=== PATIENT | female | born 1970 | race Two or more races ===

== ENCOUNTER 2020-02-11 13:47 | Outpatient (REF) | payer OTHER, SELFPAY ==
[2020-02-11 16:56] LABS: MANUAL DIFF FLAG NO
[2020-02-11 17:02] LABS: Basophils Absolute Auto 0.1 X10*3/uL (0.0-0.2); Basophils Percent Auto 1.3 % (0-2); Eosinophils Absolute Auto 0.1 X10*3/uL (0.0-0.4); Eosinophils Percent Auto 1.8 % (0-4); Hematocrit 39.3 % (37-47); Hemoglobin 12.3 g/dl (12.0-16.0); Imm Gran Abs Auto 0.01 X10*3/uL (0.00-0.03); Imm Gran Pct Auto 0.1 % (0.0-0.4); Lymphocytes Absolute Auto 2.2 X10*3/uL (1.2-4.9); Lymphocytes Percent Auto 32.1 % (20-40); Mean Corpuscular HGB Conc 31.3 g/dl (31.0-35.0); Mean Corpuscular Hemoglobin 29.4 pg (27.0-33.0); Mean Corpuscular Volume 93.8 fL (80-98); Mean Platelet Volume 10.1 fL (9.4-12.3); Monocytes Absolute Auto 0.5 X10*3/uL (0.1-1.2); Neutrophils Absolute Auto 3.8 X10*3/uL (2.0-8.3); Neutrophils Percent Auto 56.7 % (45-73); Platelet Count 350 X10*3/uL (160-400); Red Blood Count 4.19 X10*6/uL (4.20-5.50); Red Cell Distribution Width 14.1 % (11.0-16.0); White Blood Count 6.8 X10*3/uL (4.8-10.8)
[2020-02-11 17:10] LABS: Anion Gap 10 (12-20); Blood Urea Nitrogen 12 mg/dL (9-16); Calcium 8.6 mg/dL (8.4-10.2); Carbon Dioxide 30 mmol/L (22-29); Chloride 106 mmol/L (96-108); Estimated Glomerular Filt Rate > 60; Glucose Random 76 mg/dL (60-115); Potassium 4.2 mmol/l (3.3-5.1); Sodium 142 mmol/L (135-145)
[2020-02-11 17:32] LABS: TSH reflex Free T4 0.93 mIU/mL (0.32-4.0)
[2020-02-12 12:01] LABS: LDL Cholesterol Direct 66 mg/dL (<100)
== END 2020-02-11 13:48 | disposition home or self-care (01) ==
LOC: HO.HMGCLDS 13:47
PROVIDERS: PCP Internal Medicine; Visit Provider Internal Medicine
DX: I10 Essential (primary) hypertension (principal); Z72.0 Tobacco use; Z76.89 Persons encountering health services in other specified circumstances
CPT/HCPCS: 36415; 80048; 83721; 84443; 85025

== ENCOUNTER 2020-09-17 12:19 | Outpatient (REF) | payer OTHER, SELFPAY ==
--- NOTE | ~2020-09-17 | XR_ITS ---
EXAMINATION: XR SACROILIAC JOINTS CLINICAL INFORMATION: Other specified disorder of bone COMPARISON: None TECHNIQUE: 3 views of the sacroiliac joints FINDINGS: Sacroiliac joints are patent. No erosions or sclerosis seen. No sacral or pelvic fracture seen. XR/XR sacroiliac joint 1-2V IMPRESSION: Normal sacroiliac joints.
--- NOTE | ~2020-09-17 | XR_ITS ---
EXAMINATION: XR CLAVICLE, LEFT CLINICAL INFORMATION: Other specified disorder of bone, shoulder COMPARISON: None TECHNIQUE: Two views of the left clavicle. FINDINGS: The clavicle is intact. The bones and soft tissues are normal. No fracture. Acromioclavicular joint alignment is anatomic. XR/XR clavicle LT IMPRESSION: Normal left clavicle.
[2020-09-17 13:53] LABS: MANUAL DIFF FLAG NO
[2020-09-17 14:07] LABS: Basophils Absolute Auto 0.1 X10*3/uL (0.0-0.2); Basophils Percent Auto 1.1 % (0-2); Eosinophils Absolute Auto 0.3 X10*3/uL (0.0-0.4); Eosinophils Percent Auto 4.5 % (0-4); Hematocrit 36.9 % (37-47); Hemoglobin 11.8 g/dl (12.0-16.0); Imm Gran Abs Auto 0.01 X10*3/uL (0.00-0.03); Imm Gran Pct Auto 0.2 % (0.0-0.4); Lymphocytes Percent Auto 31.3 % (20-40); Mean Corpuscular Hemoglobin 30.3 pg (27.0-33.0); Mean Corpuscular Volume 94.6 fL (80-98); Mean Platelet Volume 9.9 fL (9.4-12.3); Monocytes Absolute Auto 0.4 X10*3/uL (0.1-1.2); Monocytes Percent Auto 6.3 % (2-11); Neutrophils Absolute Auto 3.7 X10*3/uL (2.0-8.3); Neutrophils Percent Auto 56.6 % (45-73); Platelet Count 337 X10*3/uL (160-400); Red Cell Distribution Width 13.4 % (11.0-16.0); White Blood Count 6.5 X10*3/uL (4.8-10.8)
[2020-09-17 14:15] LABS: Alanine Aminotransferase 8 U/L (0-31); Albumin Level 3.6 g/dL (3.5-5.0); Alkaline Phosphatase 70 U/L (39-117); Anion Gap 12 (12-20); Aspartate Amino Transferase 17 U/L (5-31); Bilirubin Total 0.2 mg/dL (0.0-1.0); Blood Urea Nitrogen 13 mg/dL (9-16); Calcium 8.8 mg/dL (8.4-10.2); Carbon Dioxide 28 mmol/L (22-29); Chloride 107 mmol/L (96-108); Estimated Glomerular Filt Rate > 60; Glucose Random 77 mg/dL (60-115); Potassium 4.4 mmol/L (3.3-5.1); Sodium 143 mmol/L (135-145); Total Protein 6.3 g/dL (6.5-8.0)
[2020-09-17 14:38] LABS: TSH reflex Free T4 1.69 uIU/mL (0.32-4.0)
[2020-09-18 06:17] LABS: LDL Cholesterol Direct 76 mg/dL (<100)
== END 2020-09-17 12:20 | disposition home or self-care (01) ==
LOC: HO.HMGCX 12:19
PROVIDERS: PCP Internal Medicine; Visit Provider Internal Medicine
DX: M89.8X1 Other specified disorders of bone, shoulder (principal); M46.1 Sacroiliitis, not elsewhere classified; F41.1 Generalized anxiety disorder; I10 Essential (primary) hypertension; Z72.0 Tobacco use
CPT/HCPCS: 36415; 72200; 73000; 80053; 83721; 84443; 85025

== ENCOUNTER 2021-02-02 11:14 | Outpatient (REF) | payer OTHER, SELFPAY ==
[2021-02-02 13:50] LABS: MANUAL DIFF FLAG NO
[2021-02-02 14:05] LABS: Basophils Absolute Auto 0.1 X10*3/uL (0.0-0.2); Eosinophils Absolute Auto 0.3 X10*3/uL (0.0-0.4); Eosinophils Percent Auto 4.1 % (0-4); Hematocrit 37.9 % (37.0-47.0); Hemoglobin 12.2 g/dl (12.0-16.0); Imm Gran Abs Auto 0.01 X10*3/uL (0.00-0.03); Imm Gran Pct Auto 0.1 % (0.0-0.4); Lymphocytes Absolute Auto 1.9 X10*3/uL (1.2-4.9); Lymphocytes Percent Auto 26.1 % (20-40); Mean Corpuscular HGB Conc 32.2 g/dl (31.0-35.0); Mean Corpuscular Volume 93.1 fL (80.0-98.0); Mean Platelet Volume 9.7 fL (9.4-12.3); Monocytes Absolute Auto 0.4 X10*3/uL (0.1-1.2); Monocytes Percent Auto 5.5 % (2-11); Neutrophils Absolute Auto 4.6 x10*3/uL (2.0-8.3); Neutrophils Percent Auto 63.2 % (45-73); Platelet Count 340 X10*3/uL (160-400); Red Blood Count 4.07 X10*6/uL (4.20-5.50); Red Cell Distribution Width 14.6 % (11.0-16.0); White Blood Count 7.3 X10*3/uL (4.8-10.8)
[2021-02-02 14:32] LABS: Alanine Aminotransferase 11 U/L (0-31); Albumin Level 3.8 g/dL (3.5-5.0); Alkaline Phosphatase 67 U/L (39-117); Anion Gap 12 (12-20); Aspartate Amino Transferase 16 U/L (5-31); Bilirubin Total 0.3 mg/dL (0.0-1.0); Blood Urea Nitrogen 10 mg/dL (9-16); Calcium 8.8 mg/dL (8.4-10.2); Carbon Dioxide 28 mmol/L (22-29); Chloride 105 mmol/L (96-108); Estimated Glomerular Filt Rate > 60; Glucose Random 54 mg/dL (60-115); Sodium 141 mmol/L (135-145); Total Protein 6.7 g/dL (6.5-8.0)
== END 2021-02-02 11:15 | disposition home or self-care (01) ==
LOC: HO.HMGCLDS 11:14
PROVIDERS: PCP Internal Medicine; Visit Provider Internal Medicine
DX: M19.039 Primary osteoarthritis, unspecified wrist (principal)
CPT/HCPCS: 36415; 80053; 85025

== ENCOUNTER → 2021-04-12 13:00 | Outpatient (REF) | payer OTHER, SELFPAY ==
--- NOTE | 2021-04-12 13:04 | CA_ITS ---
Transthoracic Echocardiogram Patient (Last, First, Middle): Torri Gan, Gender: Female Date of : 1970 Age: 50 Procedure Date: 04/12/2021 Procedure Type: Transthoracic Echocardiogram Location: OP Height: 165.1 cm Weight: 68.04 kg BSA: 1.75 m2 Heart Rate: bpm BP: 122 / 60 mmHg Shirt Marker: Referring MD: Jesse Rudd MD Controls Design Engineer: Jay Cui MD Symptoms: Z01.818 - Encounter for other preprocedural examination Study Quality: Good ECG Rhythm: Sinus Conclusions: - Essentially normal study Findings Left Ventricle Normal left ventricular size, thickness, and systolic function. The visually estimated ejection fraction is between 60-65%. Spectral Doppler is indicative of a normal filling pattern. Right Ventricle Normal right ventricular cavity size and systolic function. Atria Both atria are normal in size. There is lipomatous hypertrophy of the interatrial septum. There is no evidence of interatrial shunt. Aortic Valve Normal aortic valve structure and function. There is no aortic valve stenosis. There is no aortic valve regurgitation. Mitral Valve Normal mitral valve structure and function. There is trace mitral valve regurgitation. There is no mitral valve stenosis. Pulmonic Valve The pulmonic valve is likely normal. Tricuspid Valve Normal tricuspid valve structure. The right ventricular systolic pressure is normal. There is no evidence of pulmonary hypertension. Great Vessels All visible segments of the aorta are normal in size. The pulmonary artery was not well visualized. Venous The inferior vena cava is normal in size and collapses greater than 50% with inspiration. Pericardium/Pleural There is no evidence of pericardial effusion. Prior Study Comparison No prior study available for comparison. Measurements 2D Linear Measurements IVSd: 0.98 0.6-0.9/0.6-1.0 cm LVIDd: 5.04 3.9-5.3/4.2-5.9 cm LVIDd Index: 2.88 2.4-3.2/2.2-3.1 cm/m2 LVIDs: 3.20 2.0-3.6 cm LVPWd: 0.91 0.7-1.1 cm Ao Root: 3.20 2.1-3.5 cm LA Diam: 3.10 2.7-3.8/3.0-4.0 cm LAIDs Index: 1.77 1.5-2.3 cm/m2 LV Mass: 214.18 67-162/88-224 g LV Mass Index: 122.39 43-95/49-115 g/m2 LVOT Diam: 2.00 3.0+(-)1.3 cm Mitral Valve MV Pk E: 0.82 MV PK A: 0.69 MV Decel Time: 134.00 E/A: 1.20 E'Lateral: 10.90 E'Medial: 8.27 E/E' Med: 10.00 E/E' Lat: 7.60 PHT: 39.00 MVA PHT: 5.64 Decel [place]: 6.15 Aortic Valve AoV Pk Constantino: 1.41 AoV Mn Constantino: 0.96 AoV VTI: 0.27 AoV Pk Grad: 8.00 Aov Mn Grad: 4.00 ABDI Cont.VTI: 2.79 LVOT LVOT Pk Constantino: 1.21 LVOT Mn Constantino: 0.79 LVOT VTI: 0.24 LVOT Pk Grad: 6.00 LVOT Mn Grad: 3.00 LVOT Diam: 2.00 LVOT Area: 3.14 Diastolic Function MV Pk E: 0.82 MV Pk A: 0.69 E/A: 1.20 E'Medial: 8.27 E/E' Med: 10.00 E' Laterial: 10.90 E/E' Lat: 7.60 Tricuspid Valve TR Pk Constantino: 2.23 TR Pk Grad: 20.00 RA Press: 3.00 RVSP: 23.00 Great Vessels Aorta Ao Root-2D: 3.20 2.0-3.7 cm Pulmonary Valve PV Pk Constantino: 1.03 Peak PV Grad: 4.00 Updated in Other Vendor System with Status of Final Jay Cui MD electronically signed on 04/12/2021 4:11:41 PM with status of Final
== END ==
LOC: HO.CARD 13:00
PROVIDERS: PCP Internal Medicine; Visit Provider Internal Medicine
DX: Z01.818 Encounter for other preprocedural examination (principal); I51.7 Cardiomegaly; Z72.0 Tobacco use
CPT/HCPCS: 93306

== ENCOUNTER 2021-08-05 12:30 | Outpatient (REF) | payer OTHER, SELFPAY ==
[2021-08-05 14:33] LABS: Alanine Aminotransferase 9 U/L (0-31); Alkaline Phosphatase 79 U/L (39-117); Anion Gap 7 (12-20); Aspartate Amino Transferase 13 U/L (5-31); Bilirubin Total 0.2 mg/dL (0.0-1.0); Blood Urea Nitrogen 10 mg/dL (9-16); Calcium 9.6 mg/dL (8.4-10.2); Carbon Dioxide 31 mmol/L (22-29); Chloride 104 mmol/L (96-108); Estimated Glomerular Filt Rate > 60; Glucose Random 78 mg/dL (60-115); Potassium 4.4 mmol/L (3.3-5.1); Sodium 138 mmol/L (135-145); Total Protein 7.3 g/dL (6.5-8.0)
== END 2021-08-05 12:31 | disposition home or self-care (01) ==
LOC: HO.HMGCLDS 12:30
PROVIDERS: Visit Provider Internal Medicine
DX: F41.1 Generalized anxiety disorder (principal); I10 Essential (primary) hypertension
CPT/HCPCS: 36415; 80053

== ENCOUNTER 2021-12-05 14:01 | Outpatient (REF) | payer OTHER, SELFPAY ==
--- NOTE | ~2021-12-05 | XR_ITS ---
EXAMINATION: XR SHOULDER, RIGHT CLINICAL INFORMATION: Sprain of the right shoulder joint COMPARISON: None TECHNIQUE: Three views of the right shoulder. FINDINGS: No acute fracture or dislocation. Glenohumeral joint space is maintained. Subchondral sclerosis and subchondral cystic change at the anterior glenoid and minimal inferior humeral head marginal osteophyte formation compatible with mild osteoarthritis. Acromiohumeral interval is maintained. No periarticular soft tissue calcification. AC joint is congruent and intact. Visualized right lung is grossly clear. XR/XR shoulder RT min 2V IMPRESSION: 1. No acute osseous injury. 2. Mild glenohumeral joint osteoarthritis.
== END 2021-12-05 14:02 | disposition home or self-care (01) ==
LOC: HO.HMGCX 14:01
PROVIDERS: PCP Internal Medicine; Visit Provider Internal Medicine
DX: S43.401A Unspecified sprain of right shoulder joint, initial encounter (principal)
CPT/HCPCS: 73030

== ENCOUNTER 2022-05-17 11:47 | Outpatient (REF) | payer OTHER, SELFPAY ==
[2022-05-17 13:59] LABS: MANUAL DIFF FLAG NO
[2022-05-17 14:17] LABS: Basophils Absolute Auto 0.1 X10*3/uL (0.0-0.2); Eosinophils Absolute Auto 0.1 X10*3/uL (0.0-0.4); Eosinophils Percent Auto 2.3 % (0-4); Hematocrit 41.7 % (37.0-47.0); Hemoglobin 12.9 g/dl (12.0-16.0); Imm Gran Abs Auto 0.02 X10*3/uL (0.00-0.03); Imm Gran Pct Auto 0.3 % (0.0-0.4); Lymphocytes Absolute Auto 1.6 X10*3/uL (1.2-4.9); Lymphocytes Percent Auto 25.7 % (20-40); Mean Corpuscular HGB Conc 30.9 g/dl (31.0-35.0); Mean Corpuscular Hemoglobin 28.6 pg (27.0-33.0); Mean Corpuscular Volume 92.5 fL (80.0-98.0); Mean Platelet Volume 9.6 fL (9.4-12.3); Monocytes Absolute Auto 0.3 X10*3/uL (0.1-1.2); Monocytes Percent Auto 5.6 % (2-11); Neutrophils Absolute Auto 3.9 x10*3/uL (2.0-8.3); Neutrophils Percent Auto 65.1 % (45-73); Platelet Count 379 X10*3/uL (160-400); Red Blood Count 4.51 X10*6/uL (4.20-5.50); Red Cell Distribution Width 14.9 % (11.0-16.0); White Blood Count 6.1 X10*3/uL (4.8-10.8)
[2022-05-17 14:36] LABS: Estimated Average Glucose 117 mg/dL; Hemoglobin A1c % 5.7 %
[2022-05-17 14:46] LABS: Alanine Aminotransferase 7 U/L (0-31); Albumin Level 3.8 g/dL (3.5-5.0); Alkaline Phosphatase 77 U/L (39-117); Anion Gap 9 (12-20); Aspartate Amino Transferase 13 U/L (5-31); Bilirubin Total 0.2 mg/dL (0.0-1.0); Blood Urea Nitrogen 15 mg/dL (9-16); Calcium 9.2 mg/dL (8.4-10.2); Carbon Dioxide 29 mmol/L (22-29); Chloride 108 mmol/L (96-108); Estimated Glomerular Filt Rate > 60; Glucose Random 92 mg/dL (60-115); Potassium 4.2 mmol/L (3.3-5.1); Sodium 142 mmol/L (135-145); Total Protein 6.7 g/dL (6.5-8.0)
[2022-05-17 15:01] LABS: TSH reflex Free T4 0.14 uIU/mL (0.32-4.0)
[2022-05-17 15:44] LABS: Free T4 (Free Thyroxine) 0.82 ng/dL (0.71-1.85)
[2022-05-18 10:23] LABS: LDL Cholesterol Direct 82 mg/dL (<100)
== END 2022-05-17 11:48 | disposition home or self-care (01) ==
LOC: HO.HMGCLDS 11:47
PROVIDERS: PCP Internal Medicine; Visit Provider Internal Medicine
DX: R63.4 Abnormal weight loss (principal); F33.9 Major depressive disorder, recurrent, unspecified; F41.1 Generalized anxiety disorder; G47.9 Sleep disorder, unspecified; I10 Essential (primary) hypertension; R42 Dizziness and giddiness; Z72.0 Tobacco use; E16.2 Hypoglycemia, unspecified
CPT/HCPCS: 36415; 80053; 83036; 83721; 84439; 84443; 85025

== ENCOUNTER 2022-05-31 09:40 | Outpatient (REF) | payer OTHER, SELFPAY ==
[2022-05-31 12:39] LABS: TSH reflex Free T4 0.65 uIU/mL (0.32-4.0)
== END 2022-05-31 09:41 | disposition home or self-care (01) ==
LOC: HO.HMGCLDS 09:40
PROVIDERS: PCP Internal Medicine; Visit Provider Internal Medicine
DX: R94.6 Abnormal results of thyroid function studies (principal)
CPT/HCPCS: 36415; 84443

== ENCOUNTER 2022-09-25 15:39 | Outpatient (AMB) | payer MEDICAID, SELFPAY ==
[2022-09-25 15:43] VITALS: BP 108/88; PULSE 84; TEMP 37.1; O2SAT 100
--- NOTE | 2022-09-25 15:43 | MHC.OFFWIV ---
Intake Vital Signs 09/25/22 15:43 Height 5 ft 5 in BP 108/88 Blood Pressure Location Rt brachial Position Sitting Pulse 84 Pulse Source Pulse Oximeter Temp 98.8 F Temp Source Oral Pulse Oximetry (%) 100 Oxygen Delivery Method Room Air Intake Visit Reasons: EST/cannot move left hand Intake Note: Pt is here today for swelling in Lt hand, pt states that it hurts and unable to move it. FYI had arthritis surgery 2 years ago Patient Tobacco Use Status: Current everyday Tobacco user Allergies shellfish derived Allergy (Severe, Verified 09/25/22 15:43) Unknown Medication List - Last Reconciled 09/26/22 by Gavin Almendarez MD escitalopram oxalate (Lexapro) 20 mg PO DAILY 90 days meloxicam 15 mg PO DAILY 30 days nifedipine ER 60 mg PO DAILY 90 days plecanatide (Trulance) 3 mg PO DAILY quetiapine 50 mg PO BEDTIME 90 days valsartan 160 mg PO DAILY 90 days Do you need a note to return to daycare/school/sports/work: No HPI EST/cannot move left hand HPI Details 51-year-old female presents to the office for a sick visit. Patient is complaining of pain and swelling in the left hand for the past few days. 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 Patient is unable to move the hand secondary to pain. She went to the orthopedic surgeon's office but could not afford the walk-in visit. Patient does not recall any fall or injury recently. [facility] Medical History Anxiety, generalized Arthrosis Asthma Hypertension, essential Stroke Tobacco abuse Surgical History H/O: hysterectomy Family History Mother Heart disease Diabetes Father Heart disease Substance abuse Daughter Substance abuse Social History Housing: House Alcohol intake: never Patient Tobacco Use Status: Current everyday Tobacco user Tobacco use type: Cigarette Cigarette Packs Per Day: 1 Cigarettes Per Day: 10 e-Cigarette/Vaping Use: Never Used Second Hand Smoke Exposure: No Current occupational status: unemployed Cognitive needs: No Hearing needs: No Vision needs: Yes Physical Exam Vital Signs: Last Vital Signs Temp 98.8 F 09/25/22 15:43 Pulse 84 09/25/22 15:43 BP 108/88 09/25/22 15:43 Pulse Ox 100 09/25/22 15:43 Oxygen Delivery Method Room Air 09/25/22 15:43 Extrem Other: Left wrist/forearm: Swelling over the dorsum of the wrist. Pain on flexion. Assessment & Plan Assessment & Plan (1) Wrist pain, left: Code(s): M25.532 - Pain in left wrist Plan: X-ray shows a missing carpal bone. An Matteo wrap was provided. Patient is already taking meloxicam. I encouraged her to see the orthopedic MD. Addendum: I was seen on the patient's, when the nurse reported that patient was unhappy with the care received and had stormed out of the office. Orders: Orders XR wrist LT min 3V 09/25/22 M25.532 - Pain in left wrist Coding Level of Care Code Est Pt Level 4 (68701) Diagnoses Wrist pain, left M25.532
== END 2022-09-25 16:41 | disposition home or self-care (01) ==
PROVIDERS: PCP Internal Medicine; Visit Provider Internal Medicine
DX: M25.532 Pain in left wrist (principal)
CPT/HCPCS: 99214

== ENCOUNTER 2022-09-25 16:13 | Outpatient (REF) | payer MEDICAID, SELFPAY ==
--- NOTE | ~2022-09-25 | XR_ITS ---
EXAMINATION: XR WRIST, LEFT CLINICAL INFORMATION: Left wrist pain COMPARISON: None available. TECHNIQUE: PA, lateral, and oblique views of the left wrist. FINDINGS: The lunate appears absent. A tiny portion of the scaphoid may be present Degenerative changes are present. Degenerative changes are present at the triscaphe joint. The capitate now articulates with the radius. No acute fractures are seen. 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 No acute fracture is seen. Please correlate with past surgical history.
== END 2022-09-25 16:14 | disposition home or self-care (01) ==
LOC: HO.HMGCX 16:13
PROVIDERS: PCP Internal Medicine; Visit Provider Internal Medicine
DX: M25.532 Pain in left wrist (principal)
CPT/HCPCS: 73110

== ENCOUNTER 2022-09-28 11:24 | Outpatient (AMB) | payer MEDICAID, SELFPAY ==
--- NOTE | 2022-09-28 12:22 | MHC.OFFWIV ---
Intake Vital Signs 09/28/22 12:24 Weight 2.41 kg BP 120/70 Blood Pressure Location Rt brachial Position Sitting Pulse 67 Pulse Source Pulse Oximeter Temp 96.8 F Temp Source Temporal Artery Scan Pulse Oximetry (%) 100 Oxygen Delivery Method Room Air Intake Visit Reasons: EP need splint, left the other night before got on Patient Tobacco Use Status: Current everyday Tobacco user Allergies shellfish derived Allergy (Severe, Verified 09/28/22 12:24) Unknown Do you need a note to return to daycare/school/sports/work: No HPI HPI Comments History of Present Illness Details this is a 51-year-old female presenting to urgent care for sick visit, patient seen here 2 days ago coming in for left hand pain for the past few days, patient states she has a history of arthritis in her left hand and wrist and has had surgeries in the past. Patient reports that her hand is difficult to move secondary to pain. She has been seen by the orthopedic surgeons in the past and is scheduled to see them again this upcoming week. Patient denies any blunt trauma, numbness, tingling, fevers, chills. She is coming in requesting a splint. Physical exam w/ swelling over the dorsum of the wrist.? Pain on flexion. concerns for arthritis, tendinitis, carpal tunnel . Unlikely threatened limb, neurovascular compromise, septic joint. Plan prednisone and discharged with ortho follow-up she states she is scheduled to see them next week. No need for imaging at this time as she had imaging prior which showed a missing carpal bone, she was given an Matteo wrap she can continue to use as well as wrist splint She should follow up with Ortho. Educated patient on diagnosis and treatment plan, answered all question, patient verbalizes understanding. At this time patient will be discharged home, advised to return with new or worsening symptoms. Educated on worrisome signs and symptoms and when to return. At this time I feel comfortable discharge home. PFSH Medical History Anxiety, generalized Arthrosis Asthma Hypertension, essential Stroke Tobacco abuse Surgical History H/O: hysterectomy Family History Mother Heart disease Diabetes Father Heart disease Substance abuse Daughter Substance abuse Social History Housing: House Alcohol intake: never Patient Tobacco Use Status: Current everyday Tobacco user Tobacco use type: Cigarette Cigarette Packs Per Day: 1 Cigarettes Per Day: 10 e-Cigarette/Vaping Use: Never Used Second Hand Smoke Exposure: No Current occupational status: unemployed Cognitive needs: No Hearing needs: No Vision needs: Yes Review of Systems Const Details: Constitutional : No Weight loss, No Fever, No Chills, No Fatigue, No Malaise ENT/Mouth : No sore throat, No Rhinorrhea Eyes: No Eye Pain, No Swelling, No Redness Cardiovascular : No Chest Pain, No SOB, No Dyspnea on Exertion, No Orthopnea, No Edema, No Palpitations Respiratory : No Cough, No Sputum, No Wheezing Gastrointestinal : No Nausea, No Vomiting, No Diarrhea, No Constipation, No abdominal Pain, No Hematochezia, No Melena Genitourinary : No Dysuria, No Urinary Frequency, No Hematuria, Musculoskeletal : + joint pain, No Myalgias, + Joint Swelling Skin : No Skin Lesions, No rash Neuro : No Weakness, No Numbness, No Dizziness, No Headache Psych : No Anxiety/Panic, No Depression All other systems reviewed and are negative All systems reviewed & are unremarkable except as noted in HPI and below Physical Exam Vital Signs: vss Appearance: Alert.? Oriented X3.? No acute distress.? Head: Normocephalic, atraumatic, no step-offs or deformities Eyes: Pupils equal, round and reactive to light.? CVS: Normal heart rate and rhythm.? Pulses normal.? Respiratory: No respiratory distress.? Breath sounds normal.? Abdomen: Soft and nontender.? Skin: Skin warm and dry.? Normal skin color.? Normal skin turgor.? Extremities: No lower extremity edema.? No calf ttp. 5/5 strength to bilateral upper and lower extremities 2+ radial pulses equal bilateral. No wrist drop. Capillary refill less than 2 seconds equal bilateral. w/ swelling over the dorsum of the Lwrist.? Pain on flexion. Neuro: Oriented X 3.? No motor deficit.? No sensory deficit. CN 2-12 intact Assessment & Plan Assessment & Plan (1) Wrist pain, left: Code(s): M25.532 - Pain in left wrist (2) Left wrist tendonitis: Code(s): M77.8 - Other enthesopathies, not elsewhere classified Plan Take your medications as prescribed. If you were prescribed antibiotics today, it is important that you take your medication to their entirety, do not skip any doses, do not finish them early. Follow-up with your primary care provider this week. Return to the emergency department with new or worsening symptoms. Such as fevers, chills, chest pain, shortness of breath, nausea, vomiting, dizziness, headache, vision changes, lethargy In case of emergency call 911 Orders: Referrals Orthopedics Referral M25.532 - Pain in left wrist Medications: New prednisone 40 mg (2 x 20 mg) PO DAILY 5 days 10 tabs 0RF Coding Level of Care Code Est Pt Level 3 (12042) Diagnoses Wrist pain, left M25.532 Left wrist tendonitis M77.8
[2022-09-28 12:24] VITALS: BP 120/70; PULSE 67; TEMP 36; O2SAT 100
== END 2022-09-28 12:46 | disposition home or self-care (01) ==
PROVIDERS: PCP Internal Medicine; Visit Provider Physician Assistant
DX: M25.532 Pain in left wrist (principal); M77.8 Other enthesopathies, not elsewhere classified
CPT/HCPCS: 99213

== ENCOUNTER 2023-02-14 10:15 | Outpatient (AMB) | payer OTHER, SELFPAY ==
--- NOTE | 2023-02-14 10:18 | MHC.PC.OV ---
Vital Signs 02/14/23 10:19 Height 5 ft 5 in Weight 135 lb 4 oz BMI 22.5 BP 102/70 Blood Pressure Location Rt brachial Position Sitting Pulse 84 Pulse Source Pulse Oximeter Pulse Oximetry (%) 99 Oxygen Delivery Method Room Air Intake Visit Reasons: Followup medications Allergies shellfish derived Allergy (Severe, Verified 02/14/23 10:19) Unknown Medication List - Last Reconciled 02/14/23 by Jesse Rudd MD escitalopram oxalate (Lexapro) 20 mg PO DAILY 90 days meloxicam 15 mg PO DAILY 30 days nifedipine ER 60 mg PO DAILY 90 days plecanatide (Trulance) 3 mg PO DAILY quetiapine 50 mg PO BEDTIME 90 days valsartan 160 mg PO DAILY 90 days Tobacco use date assessed: 02/14/23 Dental Screening Dental Screen Date: 02/14/23 HPI Followup medications HPI Details Patient is 52-year-old female came in today for follow-up appointment Patient suffers from multiple joint degenerative osteoarthritis She had fusion left wrist by [facility], and currently having severe pain again Patient is left-handed and is not able to ride. She has appointment for follow-up. She also have bilateral sacroiliitis and is requesting referral to [facility] for pain management. Patient is interested in getting cortisone injection She suffers from severe constipation due to IBS She has seen Gastroenterology in [facility], however she is in need of new Gastroenterology as previous 1 has moved I have placed a referral for her to see [facility]. Meanwhile I have sent Senokot established she may take up to 3 at night as needed Also I would recommend that she push more fluid. And add more fiber to her diet. Severe depression and difficulty sleeping at night: Patient is on Lexapro 20 mg for depression And Seroquel 50 mg at night which is helping her sleep as well as for depression Because of severe pain patient is having difficulty sleeping I have sent gabapentin 300 mg she may take 1 for a week and may double the dose after that to 600 at night. She says that meloxicam is not helping anymore. Blood pressure is stable with nifedipine 60 mg and valsartan or 160 mg, I think it is running little low I am reducing the dose of valsartan to 80 mg. She is due for labs, they needs to be done today Patient had flu vaccine and shingles vaccine yesterday Follow-up 3 months [facility] Medical History Arthrosis Anxiety, generalized Hypertension, essential Tobacco abuse Asthma Stroke Surgical History H/O: hysterectomy Family History Mother Heart disease Diabetes Father Heart disease Substance abuse Daughter Substance abuse Social History Housing: House Alcohol intake: never Patient Tobacco Use Status: Current everyday Tobacco user Tobacco use type: Cigarette Cigarette Packs Per Day: 1 Cigarettes Per Day: 10 e-Cigarette/Vaping Use: Never Used Second Hand Smoke Exposure: No Current occupational status: unemployed Cognitive needs: No Hearing needs: No Vision needs: Yes Questionnaire PHQ-9 Over the last 2 weeks, how often have you been bothered by any of the following problems? 1. Little interest or pleasure in doing things: not at all 2. Feeling down, depressed, or hopeless: not at all 3. Trouble falling or staying asleep, or sleeping too much: more than half the days 4. Feeling tired or having little energy: more than half the days 5. Poor appetite or overeating: more than half the days 6. Feeling bad about yourself - or that you are a failure or have let yourself or your family down: not at all 7. Trouble concentrating on things, such as reading the newspaper or watching television: not at all 8. Moving or speaking so slowly that other people could have noticed. Or the opposite - being so fidgety or restless that you have been moving around a lot more than usual: more than half the days 9. Thoughts that you would be better off or of hurting yourself in some way: not at all Total score: 8 Depression Screening Interpretation: Negative Depression Screening Done: Yes 57614 - PHQ-9 Billing: Yes Source: Developed by Drs. Aristeo Bryan, Yokasta Sandhu, Avni Lancaster and colleagues, with an educational marya from [employer]. Thrive Questionnaire Date Thrive assessed: 01/11/22 BRANDEE-7 AMB Questionnaire BRANDEE-7 Date BRANDEE - 7 assessed: 01/11/22 Source: Developed by Drs. Aristeo Bryan, Yokasta Sandhu, Avni Lancaster and colleagues, with an educational marya from [employer]. Review of Systems Const Denies chills and Denies fever(s) ENT Denies epistaxis and Denies nasal discharge Card Denies chest pain Resp Denies chest congestion, Denies cough and Denies hemoptysis GI Denies diarrhea and Denies nausea Skin/Breast Denies rash Neuro Reports no additional complaints Psych Reports no additional complaints Endo Reports no additional complaints Physical exam (Primary Care) Vital Signs: Last Vital Signs Pulse 84 02/14/23 10:19 BP 102/70 02/14/23 10:19 Pulse Ox 99 02/14/23 10:19 Oxygen Delivery Method Room Air 02/14/23 10:19 BMI result Body Mass Index 22.5 Tobacco/Smoking Status: Tobacco use Status Tobacco use date assessed 02/14/23 02/14/23 10:24 Patient Tobacco Use Status Current everyday Tobacco 02/14/23 10:24 Tobacco use type Cigarette 02/14/23 10:24 e-Cigarette/Vaping Use Never Used 02/14/23 10:24 PHQ-9: PHQ-9 Score PHQ-9: Total score 8 02/14/23 11:04 Depression Screening Interpretation: Negative Thrive Assessment: Date of Thrive Assessment Date Thrive assessed 01/11/22 02/14/23 10:24 Const General: cooperative, comfortable and no acute distress Orientation/consciousness: patient oriented x3 HENMT Head: Yes normocephalic Eyes General: appearance normal, both eyes and all related structures Neck Neck: Yes supple Resp Effort & Inspection: normal respiratory effort, no cough and no stridor Cardio Rhythm: regular rhythm Heart sounds: S1 normal heart sound present and S2 normal heart sound present Skin General skin exam: turgor normal Neuro General: patient oriented x3, tone normal and moves all extremities Extrem Other: Wrist splint on both sides Right lower extremity: no edema Left lower extremity: no edema Assessment and Plan Assessment & Plan (1) Major depression, recurrent: Code(s): F33.9 - Major depressive disorder, recurrent, unspecified Qualifiers: Active/Remission status: in partial remission Qualified Code(s): F33.41 - Major depressive disorder, recurrent, in partial remission (2) Hypertension, essential: Code(s): I10 - Essential (primary) hypertension (3) Bilateral sacroiliitis: Code(s): M46.1 - Sacroiliitis, not elsewhere classified (4) Tired: Code(s): R53.83 - Other fatigue (5) Osteoarthritis involving multiple joints on both sides of body: Code(s): M15.9 - Polyosteoarthritis, unspecified (6) Constipation by delayed colonic transit: Code(s): K59.01 - Slow transit constipation (7) Irritable bowel syndrome: Code(s): K58.9 - Irritable bowel syndrome without diarrhea Qualifiers: Irritable bowel syndrome type: with constipation Qualified Code(s): K58.1 - Irritable bowel syndrome with constipation (8) Anxiety, generalized: Code(s): F41.1 - Generalized anxiety disorder (9) Difficulty sleeping: Code(s): G47.9 - Sleep disorder, unspecified Plan Patient is 52-year-old female came in today for follow-up appointment Patient suffers from multiple joint degenerative osteoarthritis She had fusion left wrist by [facility], and currently having severe pain again Patient is left-handed and is not able to ride. She has appointment for follow-up. She also have bilateral sacroiliitis and is requesting referral to [facility] for pain management. Patient is interested in getting cortisone injection She suffers from severe constipation due to IBS She has seen Gastroenterology in [facility], however she is in need of new Gastroenterology as previous 1 has moved I have placed a referral for her to see [facility]. Meanwhile I have sent Senokot established she may take up to 3 at night as needed Also I would recommend that she push more fluid. And add more fiber to her diet. Severe depression and difficulty sleeping at night: Patient is on Lexapro 20 mg for depression And Seroquel 50 mg at night which is helping her sleep as well as for depression Because of severe pain patient is having difficulty sleeping I have sent gabapentin 300 mg she may take 1 for a week and may double the dose after that to 600 at night. She says that meloxicam is not helping anymore. Blood pressure is stable with nifedipine 60 mg and valsartan or 160 mg, I think it is running little low I am reducing the dose of valsartan to 80 mg. She is due for labs, they needs to be done today Patient had flu vaccine and shingles vaccine yesterday Complaining of feeling tired, I have added vitamin-D and B12 to her labs Follow-up 3 months Orders: Orders Comprehensive Met. Panel Today F33.9 - Major depressive disorder, recurrent, unspecified, I10 - Essential (primary) hypertension, M46.1 - Sacroiliitis, not elsewhere classified, Z72.0 - Tobacco use, Z76.89 - Persons encountering health services in other specified circumstances Ferritin Today M15.9 - Polyosteoarthritis, unspecified, R53.83 - Other fatigue Complete Blood Count Auto Diff Today F33.9 - Major depressive disorder, recurrent, unspecified, I10 - Essential (primary) hypertension, M46.1 - Sacroiliitis, not elsewhere classified, Z72.0 - Tobacco use, Z76.89 - Persons encountering health services in other specified circumstances LDL Cholesterol Direct Today F33.9 - Major depressive disorder, recurrent, unspecified, I10 - Essential (primary) hypertension, M46.1 - Sacroiliitis, not elsewhere classified, Z72.0 - Tobacco use, Z76.89 - Persons encountering health services in other specified circumstances Vitamin B12 Today M15.9 - Polyosteoarthritis, unspecified, R53.83 - Other fatigue Vitamin D 25-OH (D2 and D3) Today M15.9 - Polyosteoarthritis, unspecified, R53.83 - Other fatigue TSH reflex Free T4 Today M15.9 - Polyosteoarthritis, unspecified, R53.83 - Other fatigue Referrals Gastroenterology Referral K58.9 - Irritable bowel syndrome without diarrhea, K59.01 - Slow transit constipation Pain Management Referral M46.1 - Sacroiliitis, not elsewhere classified Medications: New sennosides-docusate sodium 8.6-50 mg (Senokot-S) 2 tab-caps (2 x 8.6-50 mg) PO BEDTIME 180 tabs 0RF constipation 90 days K59.03 - Drug induced constipation, T40.2X5A - Adverse effect of other opioids, initial encounter gabapentin 600 mg (2 x 300 mg) PO BEDTIME 180 caps 0RF 90 days Changed From valsartan 160 mg PO DAILY 90 days 90 tabs 0RF To valsartan 80 mg PO DAILY 90 tabs 0RF 90 days Refilled nifedipine ER 60 mg PO DAILY 90 tabs 0RF 90 days I10 - Essential (primary) hypertension escitalopram oxalate (Lexapro) 20 mg PO DAILY 90 tabs 0RF 90 days F41.1 - Generalized anxiety disorder quetiapine 50 mg PO BEDTIME 90 tabs 0RF 90 days Coding Level of Care Code Est Pt Level 4 (21683) Diagnoses Recurrent major depressive disorder, in partial remission F33.41 Active/Remission status: in partial remission Hypertension, essential I10 Bilateral sacroiliitis M46.1 Tired R53.83 Osteoarthritis involving multiple joints on both sides of body M15.9 Constipation by delayed colonic transit K59.01 Irritable bowel syndrome with constipation K58.1 Irritable bowel syndrome type: with constipation Anxiety, generalized F41.1 Difficulty sleeping G47.9
[2023-02-14 10:19] VITALS: BP 102/70; PULSE 84; O2SAT 99; BMI 22.5
== END 2023-02-14 12:31 | disposition home or self-care (01) ==
PROVIDERS: PCP Internal Medicine; Visit Provider Internal Medicine
DX: F33.41 Major depressive disorder, recurrent, in partial remission (principal); M46.1 Sacroiliitis, not elsewhere classified; I10 Essential (primary) hypertension; F17.210 Nicotine dependence, cigarettes, uncomplicated; R53.83 Other fatigue; M15.9 Polyosteoarthritis, unspecified; K59.01 Slow transit constipation; K58.1 Irritable bowel syndrome with constipation; F41.1 Generalized anxiety disorder; G47.9 Sleep disorder, unspecified
CPT/HCPCS: 99214

== ENCOUNTER 2023-02-14 10:42 | Outpatient (REF) | payer OTHER, SELFPAY ==
[2023-02-14 13:18] LABS: MANUAL DIFF FLAG NO
[2023-02-14 13:42] LABS: Basophils Absolute Auto 0.1 X10*3/uL (0.0-0.2); Basophils Percent Auto 0.5 % (0-2); Eosinophils Absolute Auto 0.4 X10*3/uL (0.0-0.4); Eosinophils Percent Auto 3.1 % (0-4); Hematocrit 38.9 % (37.0-47.0); Hemoglobin 12.4 g/dl (12.0-16.0); Imm Gran Abs Auto 0.06 X10*3/uL (0.00-0.03); Imm Gran Pct Auto 0.4 % (0.0-0.4); Lymphocytes Absolute Auto 1.3 X10*3/uL (1.2-4.9); Lymphocytes Percent Auto 9.4 % (20-40); Mean Corpuscular HGB Conc 31.9 g/dl (31.0-35.0); Mean Corpuscular Hemoglobin 30.2 pg (27.0-33.0); Mean Corpuscular Volume 94.6 fL (80.0-98.0); Mean Platelet Volume 9.4 fL (9.4-12.3); Monocytes Absolute Auto 0.6 X10*3/uL (0.1-1.2); Monocytes Percent Auto 4.5 % (2-11); Neutrophils Absolute Auto 11.4 x10*3/uL (2.0-8.3); Neutrophils Percent Auto 82.1 % (45-73); Platelet Count 384 X10*3/uL (160-400); Red Blood Count 4.11 X10*6/uL (4.20-5.50); Red Cell Distribution Width 13.9 % (11.0-16.0); White Blood Count 13.9 X10*3/uL (4.8-10.8)
[2023-02-14 14:00] LABS: Alanine Aminotransferase 9 U/L (0-31); Albumin Level 4.1 g/dL (3.5-5.0); Alkaline Phosphatase 69 U/L (39-117); Anion Gap 10 (12-20); Aspartate Amino Transferase 19 U/L (5-31); Bilirubin Total 0.3 mg/dL (0.0-1.0); Blood Urea Nitrogen 11 mg/dL (9-16); Calcium 9.2 mg/dL (8.4-10.2); Carbon Dioxide 30 mmol/L (22-29); Chloride 103 mmol/L (96-108); Estimated Glomerular Filt Rate > 60; Glucose Random 84 mg/dL (60-115); Potassium 3.9 mmol/L (3.3-5.1); Sodium 139 mmol/L (135-145); Total Protein 7.6 g/dL (6.5-8.0)
[2023-02-14 14:19] LABS: Ferritin 48 ng/mL (10-250); TSH reflex Free T4 0.83 uIU/mL (0.32-4.0)
[2023-02-14 14:27] LABS: Vitamin B12 355 pg/mL (200-900)
[2023-02-15 09:18] LABS: LDL Cholesterol Direct 91 mg/dL (<100)
[2023-02-17 14:12] LABS: Vitamin D 25-OH, D2 <4 ng/mL; Vitamin D 25-OH, D3 15 ng/mL; Vitamin D 25-OH, Total 15 ng/mL (30-100)
== END 2023-02-14 10:43 | disposition home or self-care (01) ==
LOC: HO.HMGCLDS 10:42
PROVIDERS: PCP Internal Medicine; Visit Provider Internal Medicine
DX: I10 Essential (primary) hypertension (principal); F33.9 Major depressive disorder, recurrent, unspecified; M46.1 Sacroiliitis, not elsewhere classified; M15.9 Polyosteoarthritis, unspecified; Z76.89 Persons encountering health services in other specified circumstances; Z72.0 Tobacco use
CPT/HCPCS: 36415; 80053; 82306; 82607; 82728; 83721; 84443; 85025

== ENCOUNTER 2023-03-21 13:57 | Outpatient (AMB) | payer OTHER, SELFPAY ==
[2023-03-21 14:04] VITALS: BP 122/78; PULSE 82; RESP 14; O2SAT 98; BMI 23.0
--- NOTE | 2023-03-21 14:04 | MHC.OFFVIS ---
Intake Vital Signs 03/21/23 14:04 Height 5 ft 5 in Weight 138 lb BMI 23.0 BP 122/78 Blood Pressure Location Lt brachial Position Sitting Respiration 14 Pulse 82 Pulse Source Pulse Oximeter Pulse Oximetry (%) 98 Oxygen Delivery Method Room Air Intake Visit Reasons: Sacroilioitis, not elsewhere classified Allergies shellfish derived Allergy (Severe, Verified 03/21/23 14:03) Unknown HPI HPI Comments History of Present Illness Details Torri is a very pleasant 52-year-old female who presents to the office today for evaluation management of her bilateral lower back pain. Patient reports that she has been suffering with this pain for approximately 2 years pain. She has tried Tylenol, nonsteroidal anti-inflammatory medication, ice, heat, home exercise program all without relief of her pain. She takes prescribed gabapentin which also is not improved her pain and only makes her sleepy. Pain is constant throughout the day, today is rated as an 8/10. Patient was referred to our office for consideration of steroid injections for bilateral sacroiliitis. Patient reports pain is worse with movement, does not radiate down a either extremity. Patient denies red flag symptoms including new loss of bowel, bladder or saddle anesthesia. In terms of muscle damage condition is described as aching, shooting and throbbing. Pain is negatively impacting her general activity, mood, normal work, recreational activities, sleep and walking. [facility] Medical History Arthrosis Anxiety, generalized Hypertension, essential Tobacco abuse Asthma Stroke Surgical History H/O: hysterectomy Family History Mother Heart disease Diabetes Father Heart disease Substance abuse Daughter Substance abuse Social History Housing: House Alcohol intake: never Patient Tobacco Use Status: Current everyday Tobacco user Tobacco use type: Cigarette Cigarette Packs Per Day: 1 Cigarettes Per Day: 10 e-Cigarette/Vaping Use: Never Used Second Hand Smoke Exposure: No Current occupational status: unemployed Cognitive needs: No Hearing needs: No Vision needs: Yes Review of Systems Const All systems reviewed & are unremarkable except as noted in HPI and below Physical Exam Vital Signs: Last Vital Signs Pulse 82 03/21/23 14:04 Resp 14 03/21/23 14:04 BP 122/78 03/21/23 14:04 Pulse Ox 98 03/21/23 14:04 Oxygen Delivery Method Room Air 03/21/23 14:04 BMI result Body Mass Index 23.0 General: awake, alert, oriented. Answers questions appropriately. Fully engaged in examination. Skin: warm, dry, intact HEENT: Normocephalic. Hearing intact. Cardiac: External chest normal in appearance. Respiratory: No cough, audible wheezing or stridor. Abdomen: without gross distension. MS: No obvious swelling or deformities. Able to stand on bilateral tiptoes and bilateral heels.? Able to transition from sit to stand unassisted. Ambulates with bilaterally normal heel strike and toe off Nontender of bilateral PSIS Tender to palpation over bilateral lumbar vertebrae and paraspinal muscles SLR negative bilaterally ROM intact Strength 5/5 BLE Neurological: Oriented to person, place, time and situation. Thought process intact. No gait abnormalities appreciated. Psychiatric: Appropriate mood and affect. Good judgment and insight. Assessment & Plan Assessment & Plan (1) Lumbar facet arthropathy: Code(s): M47.816 - Spondylosis without myelopathy or radiculopathy, lumbar region Plan Torri presented to the office today for evaluation and management of her bilateral lower back pain. History, physical exam and provocative testing consistent with lumbar facet arthropathy. Patient has exhausted conservative therapy including home exercise program, nonsteroidal anti-inflammatory medications, Tylenol, ice, heat, home exercise program and prescription gabapentin all without relief of her pain. X-ray lumbar spine ordered for further evaluation Discussed options for treatment including diagnostic interventional testing, epidural steroid injections, peripheral nerve stimulation with Sprint, RFA and more permanent neuromodulation. Will schedule for fluoroscopy guided bilateral diagnostic L3, L4, DR L5 medial branch blocks with local anesthetic. All questions and concerns have been answered and patient agrees with the plan. Follow up after injections and sooner if needed. Orders: Orders XR lumbar spine 4V min Today M47.816 - Spondylosis without myelopathy or radiculopathy, lumbar region Coding Level of Care Code New Pt Level 4 (47965) Diagnoses Lumbar facet arthropathy M47.816
== END 2023-03-21 14:39 | disposition home or self-care (01) ==
PROVIDERS: PCP Internal Medicine; Visit Provider Registered Nurse Emergency
DX: M47.816 Spondylosis without myelopathy or radiculopathy, lumbar region (principal)
CPT/HCPCS: 99204

== ENCOUNTER → 2023-03-21 13:57 | Outpatient (BNVA) | payer OTHER, SELFPAY | PROVIDERS: PCP Internal Medicine; Visit Provider Registered Nurse Emergency | DX: M47.816 Spondylosis without myelopathy or radiculopathy, lumbar region (principal) | CPT/HCPCS: 99202 ==

== ENCOUNTER 2023-04-17 06:06 | Outpatient (REF) | payer OTHER, SELFPAY | END 2023-04-17 06:07 | disposition home or self-care (01) | LOC: CF 06:06 | PROVIDERS: Visit Provider Anesthesiology | DX: Z13.89 Encounter for screening for other disorder (principal) ==

== ENCOUNTER 2023-04-23 08:34 | Outpatient (AMB) | payer OTHER, SELFPAY ==
[2023-04-23 08:46] VITALS: BP 125/84; PULSE 73; BMI 24.1
--- NOTE | 2023-04-23 08:46 | A.OFFVIS_ITS ---
Intake Vital Signs 04/23/23 08:46 Height 5 ft 5 in Weight 145 lb 1.027 oz BMI 24.1 BP 125/84 Blood Pressure Location Lt brachial Position Sitting Pulse 73 Pulse Source Pulse Oximeter Intake Visit Reasons: IBS/constipation Intake Note: Pt presents to the office today for a new patient visit for IBS/ Constipation. Pt states she has been feeling very constipated lately. She states she does try to take the Senna every other day but she states it makes her nauseous. Pt denies any vomiting, diarrhea, or nausea when she isnt taking the Senna. Allergies shellfish derived Allergy (Severe, Verified 04/23/23 08:47) Unknown HPI IBS/constipation HPI Details 52-year-old female with past medical his tory of IBS, constipation, osteoarthritis, depression, hypertension is here today for initial consultation. Patient was seen by GI at [place], however her GI provider left and she is in a need of a new provider. Patient was seen by GI for IBS with severe constipation. Patient was given Trulance and reports that it was working for her. Since her provider left she has been given script for Senokot and it takes over 12 hours for it to work. Patient states that that makes her very nauseous. Patient denies any melena, hematochezia, unintentional weight loss or ribbon like stools. Patient reports that last year her mother was diagnosed with colorectal CA. found to have tumor in her cecum [facility] Medical History (Updated 04/23/23 @ 09:34 by Val Ames, [facility]) Family history of colorectal cancer Arthrosis Anxiety, generalized Hypertension, essential Tobacco abuse Asthma Stroke Surgical History H/O: hysterectomy Family History (Updated 04/23/23 @ 08:51 by Guerita Camara MA) Mother Heart disease Diabetes Colon cancer Father Heart disease Substance abuse Daughter Substance abuse Social History Housing: House Alcohol intake: never Patient Tobacco Use Status: Current everyday Tobacco user Tobacco use type: Cigarette Cigarette Packs Per Day: 1 Cigarettes Per Day: 10 e-Cigarette/Vaping Use: Never Used Second Hand Smoke Exposure: No Current occupational status: unemployed Cognitive needs: No Hearing needs: No Vision needs: Yes Review of Systems Const Denies weight gain and Denies weight loss ENT Reports no additional complaints, Denies dysphagia and Denies odynophagia Card Reports no additional complaints Resp Reports no additional complaints GI Denies abdominal pain, Denies belching, Denies melena, Denies bloating, Reports constipation, Denies dysphagia, Denies excessive flatus, Denies dyspepsia, Denies heartburn, Denies diarrhea, Denies loose stools, Denies nausea, Denies odynophagia and Denies vomiting Reports no additional complaints Musc Reports no additional complaints Neuro Reports no additional complaints Psych Reports no additional complaints Endo Reports no additional complaints Physical Exam Vital Signs: Last Vital Signs Pulse 73 04/23/23 08:46 BP 125/84 04/23/23 08:46 BMI result Body Mass Index 24.1 Const General: healthy appearing, no acute distress and well developed Nutritional Appearance: well nourished Orientation/consciousness: patient oriented x3 HEENT Throat: Yes posterior oropharynx normal, Yes tonsils normal and Yes uvula midline Resp Effort & Inspection: normal respiratory effort, able to speak in complete sentences, no tracheal deviation and symmetric chest movement Auscultation: clear to auscultation bilaterally Cardio Rate: regular rate GI Inspection: Yes normal to inspection and No distended Palpation (GI): Soft to palpation, not firm, nontender and No hepatosplenomegaly present Auscultation: normal bowel sounds General: Yes no CVA tenderness Back/Spine/Pelvis Back: no CVA tenderness Skin General skin exam: elasticity normal, turgor normal and dry skin Neuro General: patient oriented x3 Psych Appearance: grossly normal Mental Status: mental status grossly normal Assessment & Plan Assessment & Plan (1) Irritable bowel syndrome: Code(s): K58.9 - Irritable bowel syndrome without diarrhea Qualifiers: Irritable bowel syndrome type: with constipation Qualified Code(s): K58.1 - Irritable bowel syndrome with constipation (2) Constipation by delayed colonic transit: Code(s): K59.01 - Slow transit constipation (3) Family history of colorectal cancer: Code(s): Z80.0 - Family history of malignant neoplasm of digestive organs Plan Patient will take Trulance daily. Patient was encouraged to increase fluid intake and activity to promote better bowel motility. Patient will return in 2 months to discuss colonoscopy, sooner on as needed basis. Patient is agreeable to this plan and verbalizes understanding of instructions. She was given the opportunity to ask questions and all questions answered. Thank you for allowing me to participate in her care Medications: New plecanatide (Trulance) 3 mg PO DAILY 30 tabs 3RF K59.09 - Other constipation Discontinued sennosides-docusate sodium 8.6-50 mg (Senokot-S) Discontinued Reason: Doctor's Order 2 tab-caps (2 x 8.6-50 mg) PO BEDTIME 90 days 180 tabs 0RF constipation K59.03 - Drug induced constipation, T40.2X5A - Adverse effect of other opioids, initial encounter Coding Level of Care Code New Pt Level 3 (04839) Diagnoses Irritable bowel syndrome with constipation K58.1 Irritable bowel syndrome type: with constipation Constipation by delayed colonic transit K59.01 Family history of colorectal cancer Z80.0 Time Spent (min) 40 Comment 30 minutes spent with patient and additional 10 minutes spent reviewing her records
== END 2023-04-23 09:18 | disposition home or self-care (01) ==
PROVIDERS: PCP Internal Medicine; Visit Provider Nurse Practitioner Family
DX: K58.1 Irritable bowel syndrome with constipation (principal); K59.01 Slow transit constipation; Z80.0 Family history of malignant neoplasm of digestive organs
CPT/HCPCS: 99203

== ENCOUNTER → 2023-04-23 08:38 | Outpatient (BNVA) | payer OTHER, SELFPAY | PROVIDERS: PCP Internal Medicine; Visit Provider Nurse Practitioner Family | DX: K58.1 Irritable bowel syndrome with constipation (principal); K59.01 Slow transit constipation; Z80.0 Family history of malignant neoplasm of digestive organs | CPT/HCPCS: 99202 ==

== ENCOUNTER 2023-05-01 06:14 | Outpatient (REF) | payer OTHER, SELFPAY ==
--- NOTE | ~2023-05-01 | FL_ITS ---
INDICATION: Intraoperative fluoroscopy. FLUOROSCOPY: Fluoroscopy Time: 0.5 minutes Dose/air kerma: 5.9 mGy Images saved: 6 FINDINGS: Multiple intraoperative fluoroscopic images are submitted during procedure of the lumbar spine. Correlation with operative report. Evaluation is limited secondary to fluoroscopic technique. IMPRESSION: Intra-operative fluoroscopic imaging provided by radiology during procedure of the lumbar spine. Please refer to operative note for further information.
== END 2023-05-01 06:15 | disposition home or self-care (01) ==
LOC: CF 06:14
PROVIDERS: Visit Provider Anesthesiology
DX: M47.816 Spondylosis without myelopathy or radiculopathy, lumbar region (principal)
CPT/HCPCS: 64493; 64494; J2795; Q9967

== ENCOUNTER 2023-05-01 14:12 | Outpatient (AMB) | payer OTHER, SELFPAY ==
[2023-05-01 15:22] VITALS: BP 104/70; BP 98/60; PULSE 80; PULSE 88; RESP 12; O2SAT 99; BMI 24.1
--- NOTE | 2023-05-01 15:22 | MHC.OFFVIS ---
Intake Vital Signs 05/01/23 15:22 05/01/23 15:22 Height 5 ft 5 in 5 ft 5 in Weight 145 lb 145 lb BMI 24.1 24.1 BP 98/60 104/70 Blood Pressure Location Lt brachial Lt brachial Position Sitting Sitting Respiration 12 12 Pulse 88 80 Pulse Source Pulse Oximeter Pulse Oximeter Pulse Oximetry (%) 99 99 Oxygen Delivery Method Room Air Room Air Comment pre-op post-op Intake Visit Reasons: BILATERAL DIAGNOSTIC L3, L4, DRL5 MBB Allergies shellfish derived Allergy (Severe, Verified 05/01/23 15:24) Unknown [facility] Medical History (Updated 04/23/23 @ 09:[address] [facility]) Family history of colorectal cancer Arthrosis Anxiety, generalized Hypertension, essential Tobacco abuse Asthma Stroke Surgical History H/O: hysterectomy Family History (Updated 04/23/23 @ 08:51 by Guerita Camara MA) Mother Heart disease Diabetes Colon cancer Father Heart disease Substance abuse Daughter Substance abuse Social History Housing: House Alcohol intake: never Patient Tobacco Use Status: Current everyday Tobacco user Tobacco use type: Cigarette Cigarette Packs Per Day: 1 Cigarettes Per Day: 10 e-Cigarette/Vaping Use: Never Used Second Hand Smoke Exposure: No Current occupational status: unemployed Cognitive needs: No Hearing needs: No Vision needs: Yes Physical Exam Vital Signs: Last Vital Signs Pulse 80 05/01/23 15:22 Resp 12 05/01/23 15:22 BP 104/70 05/01/23 15:22 Pulse Ox 99 05/01/23 15:22 Oxygen Delivery Method Room Air 05/01/23 15:22 BMI result Body Mass Index 24.1 Assessment & Plan Assessment & Plan (1) Lumbar facet arthropathy: Code(s): M47.816 - Spondylosis without myelopathy or radiculopathy, lumbar region Plan: agnostic medial branch block L3,L4 dorsal ramus L5 bilateral.? ? ?Informed consent was explained to the patient. All questions were explained and? answered.? The patient was taken inside the operating room where she was positioned prone on the operating table. Time-out was performed delineating correct site, side, the nature of the procedure, patient's allergy, . All operating room staff was participating in OR time-out procedure. ? ? The lower back was prepped with ChloraPrep and draped with sterile towels.? C-arm was brought over the operating field and sq picture of L4-, L5 vertebra and S1 AREA were delineated on the screen.? Point of interest were delineated as confluence of superior articular process of L4 and L5 vertebra bilaterally with corresponding transverse processes as well as confluence of the sacral alae bilaterally with superior articular process of S1.? The projection of the point of interest to the skin were injected with the small amount of local anesthetic lidocaine 2% 1-1.5 cc.? After that 22 gauge 3.5 inch spinal needle was driven sequentially to the points of interest in tunnel vision fashion. After needles gently contacted the bone at the point of interests the needle was injected with small amount of the contrast.? The injection of the contrast did not demonstrate any intravascular or intrathecal spread of the contrast.? After that injection of the? ropivacaine 0.5%-1cc was performed at each needle location.??after that the needles were removed and Bandaids were applied. ? Upon completion of the injections? needle was? removed and sterile Band-Aids were applied.? The patient tolerated procedure very well Plan Torri presented to the office today for evaluation and management of her bilateral lower back pain. History, physical exam and provocative testing consistent with lumbar facet arthropathy. Patient has exhausted conservative therapy including home exercise program, nonsteroidal anti-inflammatory medications, Tylenol, ice, heat, home exercise program and prescription gabapentin all without relief of her pain. X-ray lumbar spine ordered for further evaluation Discussed options for treatment including diagnostic interventional testing, epidural steroid injections, peripheral nerve stimulation with Sprint, RFA and more permanent neuromodulation. Will schedule for fluoroscopy guided bilateral diagnostic L3, L4, DR L5 medial branch blocks with local anesthetic. All questions and concerns have been answered and patient agrees with the plan. Follow up after injections and sooner if needed. Coding Level of Care Code Procedure Only Diagnoses Lumbar facet arthropathy M47.816
== END 2023-05-01 14:54 | disposition home or self-care (01) ==
LOC: HO.PMCPRC 14:12
PROVIDERS: PCP Internal Medicine; Visit Provider Anesthesiology
DX: M47.816 Spondylosis without myelopathy or radiculopathy, lumbar region (principal)
CPT/HCPCS: 64493; 64494

== ENCOUNTER 2023-05-09 14:19 | Outpatient (AMB) | payer OTHER, SELFPAY ==
[2023-05-09 14:28] VITALS: BP 134/85; PULSE 76; RESP 16; O2SAT 99; BMI 24.1
--- NOTE | 2023-05-09 14:28 | A.OFFVIS_ITS ---
Intake Vital Signs 05/09/23 14:28 Height 5 ft 5 in Weight 145 lb BMI 24.1 BP 134/85 Blood Pressure Location Lt brachial Position Sitting Respiration 16 Pulse 76 Pulse Source Pulse Oximeter Pulse Oximetry (%) 99 Oxygen Delivery Method Room Air Intake Visit Reasons: BILATERAL DIAGNOSTIC L3, L4, DRL5 MBB/05/01/23 Allergies shellfish derived Allergy (Severe, Verified 05/09/23 14:30) Unknown HPI HPI Comments History of Present Illness Details Patient presents the office today for follow-up status post bilateral L3-L4 L5 medial branch blocks with local anesthetic performed 05/01/2023 She reports 70% pain relief and improvement in functional mobility for the entire day after the procedure Denies any untoward effects Pain today is rated as a 7/10 Prior: Torri is a very pleasant 52-year-old female who presents to the office today for evaluation management of her bilateral lower back pain. Patient reports that she has been suffering with this pain for approximately 2 years pain. She has tried Tylenol, nonsteroidal anti-inflammatory medication, ice, heat, home exercise program all without relief of her pain. She takes prescribed gabapentin which also is not improved her pain and only makes her sleepy. Pain is constant throughout the day, today is rated as an 8/10. Patient was referred to our office for consideration of steroid injections for bilateral sacroiliitis. Patient reports pain is worse with movement, does not radiate down a either extremity. Patient denies red flag symptoms including new loss of bowel, bladder or saddle anesthesia. In terms of muscle damage condition is described as aching, shooting and throbbing. Pain is negatively impacting her general activity, mood, normal work, recreational activities, sleep and walking. [facility] Medical History (Updated 04/23/23 @ 09:34 by Val Ames [facility]) Family history of colorectal cancer Arthrosis Anxiety, generalized Hypertension, essential Tobacco abuse Asthma Stroke Surgical History H/O: hysterectomy Family History (Updated 04/23/23 @ 08:51 by Guerita Camara MA) Mother Heart disease Diabetes Colon cancer Father Heart disease Substance abuse Daughter Substance abuse Social History Housing: House Alcohol intake: never Patient Tobacco Use Status: Current everyday Tobacco user Tobacco use type: Cigarette Cigarette Packs Per Day: 1 Cigarettes Per Day: 10 e-Cigarette/Vaping Use: Never Used Second Hand Smoke Exposure: No Current occupational status: unemployed Cognitive needs: No Hearing needs: No Vision needs: Yes Review of Systems Const All systems reviewed & are unremarkable except as noted in HPI and below Physical Exam Vital Signs: Last Vital Signs Pulse 76 05/09/23 14:28 Resp 16 05/09/23 14:28 BP 134/85 05/09/23 14:28 Pulse Ox 99 05/09/23 14:28 Oxygen Delivery Method Room Air 05/09/23 14:28 BMI result Body Mass Index 24.1 General: awake, alert, oriented. Answers questions appropriately. Fully engaged in examination. Skin: warm, dry, intact HEENT: Normocephalic. Hearing intact. Cardiac: External chest normal in appearance. Respiratory: No cough, audible wheezing or stridor. Abdomen: without gross distension. MS: No obvious swelling or deformities. Able to transition from sit to stand unassisted. Ambulates with bilaterally normal heel strike and toe off Neurological: Oriented to person, place, time and situation. Thought process intact. No gait abnormalities appreciated. Psychiatric: Appropriate mood and affect. Good judgment and insight. Assessment & Plan Assessment & Plan (1) Lumbar facet arthropathy: Code(s): M47.816 - Spondylosis without myelopathy or radiculopathy, lumbar region Plan Torri presented to the office today for follow-up 1 week status post bilateral L3-L4 dorsal ramus L5 medial branch blocks with local anesthetic She reports 70% pain relief with improvement in functional mobility for the entire day of the procedure She denies any untoward effects of the procedure Patient has exhausted conservative therapy including home exercise program, nonsteroidal anti-inflammatory medications, Tylenol, ice, heat, home exercise program and prescription gabapentin all without relief of her pain. Discussed options for treatment including peripheral nerve stimulation with Sprint versus radiofrequency ablation. Sprint pamphlet provided to patient She would like to proceed with radiofrequency ablation. Patient was advised that we will submit this to the insurance, there is a chance that they will require a 2nd repeat diagnostic. Will schedule for fluoroscopy guided bilateral L3, L4, DR L5 radiofrequency ablation with anesthesia, if necessary will schedule repeat diagnostic bilateral medial branch blocks. All questions and concerns have been answered and patient agrees with the plan. Follow up after procedure, sooner if needed. Coding Level of Care Code Est Pt Level 3 (13078) Diagnoses Lumbar facet arthropathy M47.816
== END 2023-05-09 14:50 | disposition home or self-care (01) ==
PROVIDERS: PCP Internal Medicine; Visit Provider Registered Nurse Emergency
DX: M47.816 Spondylosis without myelopathy or radiculopathy, lumbar region (principal)
CPT/HCPCS: 99213

== ENCOUNTER → 2023-05-09 14:19 | Outpatient (BNVA) | payer OTHER, SELFPAY | PROVIDERS: PCP Internal Medicine; Visit Provider Registered Nurse Emergency | DX: M47.816 Spondylosis without myelopathy or radiculopathy, lumbar region (principal) | CPT/HCPCS: 99212 ==

== ENCOUNTER 2023-05-15 13:26 | Outpatient (AMB) | payer OTHER, SELFPAY ==
[2023-05-15 13:28] VITALS: BP 108/86; PULSE 84; O2SAT 96; BMI 22.9
--- NOTE | 2023-05-15 13:28 | A.OFFPC_ITS ---
Vital Signs 05/15/23 13:28 Height 5 ft 5 in Weight 137 lb 6 oz BMI 22.9 BP 108/86 Blood Pressure Location Rt brachial Position Sitting Pulse 84 Pulse Source Pulse Oximeter Pulse Oximetry (%) 96 Oxygen Delivery Method Room Air Intake Visit Reasons: 3 month follow up Allergies shellfish derived Allergy (Severe, Verified 05/15/23 13:28) Unknown Medication List - Last Reconciled 05/15/23 by Jesse Rudd MD escitalopram oxalate (Lexapro) 20 mg PO DAILY 90 days nifedipine ER 60 mg PO DAILY 90 days plecanatide (Trulance) 3 mg PO DAILY quetiapine 50 mg PO BEDTIME 90 days valsartan 80 mg PO DAILY 90 days Tobacco use date assessed: 05/15/23 Dental Screening Dental Screen Date: 05/15/23 Did you have a dental visit in the last 12 months?: No Did you have a dental problem in the last 6 months where you did not have access to dental care?: No Was dental information given to patient?: Patient has dentist HPI 3 month follow up HPI Details Patient is 52-year-old female came in today for follow-up appointment Patient is requesting paperwork filled for financial assistance Patient is taking care of mother has cancer She also suffers chronic lower back pain have chronic sacroiliitis Currently seeing pain management and had nerve block as trial which did help her She is now going in for proper procedure Gabapentin did not help patient even though she tried 600 mg so we will stop that She tried tramadol bothered from her mother which did help her I prescribing tramadol to be taken 1 at night so she can sleep. Patient is aware of side effects and also that medication will only be filled at office visits Requesting referral to Ophthalmology, patient seemed to have blocked tear duct left side And have constant tearing She suffers from severe constipation due to IBS Has appointment with gastroenterology coming up Severe depression and difficulty sleeping at night: Patient is on Lexapro 20 mg for depression And Seroquel 50 mg at night which is helping her sleep as well as for depression Blood pressure is stable with nifedipine 60 mg and valsartan 80 mg Follow-up 3 months [facility] Medical History Family history of colorectal cancer Arthrosis Anxiety, generalized Hypertension, essential Tobacco abuse Asthma Stroke Surgical History H/O: hysterectomy Family History Mother Heart disease Diabetes Colon cancer Father Heart disease Substance abuse Daughter Substance abuse Social History Housing: House Alcohol intake: never Patient Tobacco Use Status: Current everyday Tobacco user Tobacco use type: Cigarette Cigarette Packs Per Day: 1 Cigarettes Per Day: 10 e-Cigarette/Vaping Use: Never Used Second Hand Smoke Exposure: No Current occupational status: unemployed Cognitive needs: No Hearing needs: No Vision needs: Yes Questionnaire PHQ-9 Over the last 2 weeks, how often have you been bothered by any of the following problems? 1. Little interest or pleasure in doing things: nearly every day 2. Feeling down, depressed, or hopeless: nearly every day 3. Trouble falling or staying asleep, or sleeping too much: nearly every day 4. Feeling tired or having little energy: nearly every day 5. Poor appetite or overeating: nearly every day 6. Feeling bad about yourself - or that you are a failure or have let yourself or your family down: nearly every day 7. Trouble concentrating on things, such as reading the newspaper or watching television: nearly every day 8. Moving or speaking so slowly that other people could have noticed. Or the opposite - being so fidgety or restless that you have been moving around a lot more than usual: nearly every day 9. Thoughts that you would be better off or of hurting yourself in some way: not at all Total score: 24 Depression Screening Interpretation: Positive Depression Screening Done: Yes 50633 - PHQ-9 Billing: Yes Source: Developed by Drs. Aristeo Bryan, Yokasta Sandhu, Avni Lancaster and colleagues, with an educational marya from [employer]. Thrive Questionnaire Date Thrive assessed: 05/15/23 I am a: Patient What is your living situation today?: I have a steady place to live Within the past 12 months, did the food you bought not last and you didn't have the money to get more?: Sometimes True Within the past 12 months, did you worry whether your food would run out before you got money to buy more?: Sometimes True Do you have trouble paying for medicines?: No Do you have trouble getting transportation to medical appointments?: No Do you have trouble paying your heating and electricity bill?: No Do you have trouble taking care of your child, family member or friend?: No Do you have trouble with day-to-day activities such as bathing, preparing meals, shopping, managing finances, etc.?: No Are you currently unemployed and looking for a job?: No Are you interested in more education?: No Please select the resources that you would like help with: None Currently or been in a relationship where the following occur: no concerns reported THRIVE Score: 2 BRANDEE-7 AMB Questionnaire BRANDEE-7 Date BRANDEE - 7 assessed: 05/15/23 Feeling nervous, anxious, or on edge: 2 = More than half the days Not being able to stop or control worryin = Several days Worrying too much about different things: 2 = More than half the days Trouble relaxin = More than half the days Being so restless that it is hard to sit still: 2 = More than half the days Becoming easily annoyed or irritable: 3 = Nearly every day Feeling afraid as if something awful might happen: 0 = Not at all Total BRANDEE-7 score (0-4 normal; 5-9 mild; 10-14 moderate; 15-21 severe): 12 Source: Developed by Drs. Aristeo Bryan, Yokasta Sandhu, Avni Lancaster and colleagues, with an educational marya from [employer]. BRANDEE-7 Assessment Billing BRANDEE-7 Assessment Tool: BRANDEE-7 Assessment 09733 Review of Systems Const Denies chills and Denies fever(s) ENT Denies epistaxis and Denies nasal discharge Card Denies chest pain Resp Denies chest congestion, Denies cough and Denies hemoptysis GI Denies nausea Skin/Breast Denies rash Neuro Reports no additional complaints Psych Reports no additional complaints Endo Reports no additional complaints Physical exam (Primary Care) Vital Signs: Last Vital Signs Pulse 84 05/15/23 13:28 BP 108/86 05/15/23 13:28 Pulse Ox 96 05/15/23 13:28 Oxygen Delivery Method Room Air 05/15/23 13:28 BMI result Body Mass Index 22.9 Tobacco/Smoking Status: Tobacco use Status Tobacco use date assessed 05/15/23 05/15/23 13:34 Patient Tobacco Use Status Current everyday Tobacco 05/15/23 13:34 Tobacco use type Cigarette 05/15/23 13:34 e-Cigarette/Vaping Use Never Used 05/15/23 13:34 PHQ-9: PHQ-9 Score PHQ-9: Total score 05/15/23 14:36 Depression Screening Interpretation: Positive Thrive Assessment: Date of Thrive Assessment Date Thrive assessed 05/15/23 05/15/23 14:36 Currently or been in a relationship where the following occur: no concerns reported Const General: cooperative, comfortable and no acute distress Orientation/consciousness: patient oriented x3 HENMT Head: Yes normocephalic Eyes General: appearance normal, both eyes and all related structures Neck Neck: Yes supple Resp Effort & Inspection: normal respiratory effort, no cough and no stridor Cardio Rhythm: regular rhythm Heart sounds: S1 normal heart sound present and S2 normal heart sound present Skin General skin exam: turgor normal Neuro General: patient oriented x3, tone normal and moves all extremities Extrem Right lower extremity: no edema Left lower extremity: no edema Assessment and Plan Assessment & Plan (1) Hypertension, essential: Code(s): I10 - Essential (primary) hypertension (2) Major depression, recurrent: Code(s): F33.9 - Major depressive disorder, recurrent, unspecified Qualifiers: Active/Remission status: in partial remission Qualified Code(s): F33.41 - Major depressive disorder, recurrent, in partial remission (3) Blurring of vision: Code(s): H53.8 - Other visual disturbances (4) Bilateral sacroiliitis: Code(s): M46.1 - Sacroiliitis, not elsewhere classified (5) Osteoarthritis involving multiple joints on both sides of body: Code(s): M15.9 - Polyosteoarthritis, unspecified (6) Constipation by delayed colonic transit: Code(s): K59.01 - Slow transit constipation (7) Irritable bowel syndrome: Code(s): K58.9 - Irritable bowel syndrome without diarrhea Qualifiers: Irritable bowel syndrome type: with constipation Qualified Code(s): K58.1 - Irritable bowel syndrome with constipation (8) Anxiety, generalized: Code(s): F41.1 - Generalized anxiety disorder (9) Difficulty sleeping: Code(s): G47.9 - Sleep disorder, unspecified Plan Patient is 52-year-old female came in today for follow-up appointment Patient is requesting paperwork filled for financial assistance Patient is taking care of mother has cancer She also suffers chronic lower back pain have chronic sacroiliitis Currently seeing pain management and had nerve block as trial which did help her She is now going in for proper procedure Gabapentin did not help patient even though she tried 600 mg so we will stop that She tried tramadol bothered from her mother which did help her I prescribing tramadol to be taken 1 at night so she can sleep. Patient is aware of side effects and also that medication will only be filled at office visits Requesting referral to Ophthalmology, patient seemed to have blocked tear duct left side And have constant tearing She suffers from severe constipation due to IBS Has appointment with gastroenterology coming up Severe depression and difficulty sleeping at night: Patient is on Lexapro 20 mg for depression And Seroquel 50 mg at night which is helping her sleep as well as for depression Blood pressure is stable with nifedipine 60 mg and valsartan 80 mg Follow-up 3 months Orders: Referrals Ophthalmology Referral H53.8 - Other visual disturbances Medications: New tramadol 50 mg PO BEDTIME PRN 90 tabs 0RF pain cholecalciferol (vitamin D3) 25 mcg PO DAILY 90 caps 1RF 90 days tramadol 50 mg PO BEDTIME PRN 90 tabs 0RF pain Coding Level of Care Code Est Pt Level 4 (05790) Diagnoses Hypertension, essential I10 Recurrent major depressive disorder, in partial remission F33.41 Active/Remission status: in partial remission Blurring of vision H53.8 Bilateral sacroiliitis M46.1 Osteoarthritis involving multiple joints on both sides of body M15.9 Constipation by delayed colonic transit K59.01 Irritable bowel syndrome with constipation K58.1 Irritable bowel syndrome type: with constipation Anxiety, generalized F41.1 Difficulty sleeping G47.9 Additional Codes BRANDEE-7 Assessment Billing - BRANDEE-7 Assessment Tool: BRANDEE-7 Assessment 22012 ([id number])
== END 2023-05-15 13:53 | disposition home or self-care (01) ==
PROVIDERS: PCP Internal Medicine; Visit Provider Internal Medicine
DX: I10 Essential (primary) hypertension (principal); F33.41 Major depressive disorder, recurrent, in partial remission; M46.1 Sacroiliitis, not elsewhere classified; H53.8 Other visual disturbances; M15.9 Polyosteoarthritis, unspecified; K59.01 Slow transit constipation; K58.1 Irritable bowel syndrome with constipation; F41.1 Generalized anxiety disorder; G47.9 Sleep disorder, unspecified; F17.210 Nicotine dependence, cigarettes, uncomplicated
CPT/HCPCS: 99214

== ENCOUNTER 2023-06-19 06:57 | Outpatient (REF) | payer OTHER, SELFPAY ==
--- NOTE | ~2023-06-19 | FL_ITS ---
EXAMINATION: XR FLUOROSCOPY WITH IMAGES CLINICAL INFORMATION: Intraoperative fluoroscopy COMPARISON: None available. TECHNIQUE: Fluoroscopy Supervised By: Dr. Garcia. Fluoroscopy Time: 0.5 minutes. Cumulative Dose: 6.75 mGy. DAP: 1.52 Gycm2. Images: 6. FINDINGS: Please see procedural notes for full details. FL/FL guidance in treatment room IMPRESSION: Intraoperative fluoroscopy
== END 2023-06-19 06:58 | disposition home or self-care (01) ==
LOC: CF 06:57
PROVIDERS: Visit Provider Anesthesiology
DX: M47.816 Spondylosis without myelopathy or radiculopathy, lumbar region (principal)
CPT/HCPCS: 64493; 64494; J2795; Q9967

== ENCOUNTER 2023-06-19 08:50 | Outpatient (AMB) | payer OTHER, SELFPAY ==
[2023-06-19 08:58] VITALS: BP 114/62; RESP 16; O2SAT 100; BMI 22.8
--- NOTE | 2023-06-19 08:58 | A.OFFVIS_ITS ---
Intake Vital Signs 06/19/23 08:58 06/19/23 09:48 Height 5 ft 5 in Weight 137 lb BMI 22.8 BP 114/62 122/74 Blood Pressure Location Lt brachial Lt brachial Position Sitting Sitting Respiration 16 18 Pulse 78 Pulse Source Pulse Oximeter Pulse Oximeter Pulse Oximetry (%) 100 98 Oxygen Delivery Method Room Air Room Air Comment Post-Op Intake Visit Reasons: BILATERAL DIAGNOSTIC L3, L4, DRL5 MBB Allergies shellfish derived Allergy (Severe, Verified 05/15/23 13:28) Unknown [facility] Medical History Family history of colorectal cancer Arthrosis Anxiety, generalized Hypertension, essential Tobacco abuse Asthma Stroke Surgical History H/O: hysterectomy Family History Mother Heart disease Diabetes Colon cancer Father Heart disease Substance abuse Daughter Substance abuse Social History Housing: House Alcohol intake: never Patient Tobacco Use Status: Current everyday Tobacco user Tobacco use type: Cigarette Cigarette Packs Per Day: 1 Cigarettes Per Day: 10 e-Cigarette/Vaping Use: Never Used Second Hand Smoke Exposure: No Current occupational status: unemployed Cognitive needs: No Hearing needs: No Vision needs: Yes Physical Exam Vital Signs: Last Vital Signs Pulse 78 06/19/23 09:48 Resp 18 06/19/23 09:48 BP 122/74 06/19/23 09:48 Pulse Ox 98 06/19/23 09:48 Oxygen Delivery Method Room Air 06/19/23 09:48 BMI result Body Mass Index 22.8 Assessment & Plan Assessment & Plan (1) Lumbar facet arthropathy: Code(s): M47.816 - Spondylosis without myelopathy or radiculopathy, lumbar region Plan: Diagnostic medial branch block L3,L4 dorsal ramus L5 bilateral.? ? ?Informed consent was explained to the patient. All questions were explained and? answered.? The patient was taken inside the operating room where she was positioned prone on the operating table. Time-out was performed delineating correct site, side, the nature of the procedure, patient's allergy, . All operating room staff was participating in OR time-out procedure. ? ? The lower back was prepped with ChloraPrep and draped with sterile towels.? C- arm was brought over the operating field and sq picture of L4-, L5 vertebra and S1 AREA were delineated on the screen.? Point of interest were delineated as confluence of superior articular process of L4 and L5 vertebra bilaterally with corresponding transverse processes as well as confluence of the sacral alae bilaterally with superior articular process of S1.? The projection of the point of interest to the skin were injected with the small amount of local anesthetic lidocaine 2% 1-1.5 cc.? After that 22 gauge 3.5 inch spinal needle was driven sequentially to the points of interest in tunnel vision fashion. After needles gently contacted the bone at the point of interests the needle was injected with small amount of the contrast.? The injection of the contrast did not demonstrate any intravascular or intrathecal spread of the contrast.? After that injection of the? ropivacaine 0.5%-1cc was performed at each needle location.??after that the needles were removed and Bandaids were applied. ? Upon completion of the injections? needle was? removed and sterile Band-Aids were applied.? The patient tolerated procedure very well. Ming Torri presented to the office today for follow-up 1 week status post bilateral L3-L4 dorsal ramus L5 medial branch blocks with local anesthetic She reports 70% pain relief with improvement in functional mobility for the entire day of the procedure She denies any untoward effects of the procedure Patient has exhausted conservative therapy including home exercise program, nonsteroidal anti-inflammatory medications, Tylenol, ice, heat, home exercise program and prescription gabapentin all without relief of her pain. Discussed options for treatment including peripheral nerve stimulation with Sprint versus radiofrequency ablation. Sprint pamphlet provided to patient She would like to proceed with radiofrequency ablation. Patient was advised that we will submit this to the insurance, there is a chance that they will require a 2nd repeat diagnostic. Will schedule for fluoroscopy guided bilateral L3, L4, DR L5 radiofrequency ablation with anesthesia, if necessary will schedule repeat diagnostic bilateral medial branch blocks. All questions and concerns have been answered and patient agrees with the plan. Follow up after procedure, sooner if needed. Orders: Orders FL guidance in treatment room Today M47.816 - Spondylosis without myelopathy or radiculopathy, lumbar region Coding Level of Care Code Procedure Only Diagnoses Lumbar facet arthropathy M47.816
[2023-06-19 09:48] VITALS: BP 122/74; PULSE 78; RESP 18; O2SAT 98
== END 2023-06-19 09:44 | disposition home or self-care (01) ==
LOC: HO.PMCPRC 08:50
PROVIDERS: PCP Internal Medicine; Visit Provider Anesthesiology
DX: M47.816 Spondylosis without myelopathy or radiculopathy, lumbar region (principal)
CPT/HCPCS: 64493; 64494

== ENCOUNTER 2023-06-22 09:24 | Outpatient (AMB) | payer OTHER, SELFPAY ==
[2023-06-22 09:32] VITALS: BP 179/107; PULSE 62; RESP 16; O2SAT 100; BMI 22.8
--- NOTE | 2023-06-22 09:32 | A.OFFVIS_ITS ---
Intake Vital Signs 06/22/23 09:32 Height 5 ft 5 in Weight 137 lb BMI 22.8 BP 179/107 H Blood Pressure Location Lt brachial Position Sitting Respiration 16 Pulse 62 Pulse Source Pulse Oximeter Pulse Oximetry (%) 100 Oxygen Delivery Method Room Air Intake Visit Reasons: BILATERAL DIAGNOSTIC L3,L4,DRL5 MBB Allergies shellfish derived Allergy (Severe, Verified 06/22/23 09:32) Unknown HPI HPI Comments History of Present Illness Details Torri presents back to the office today for follow-up, 3 days status post diagnostic bilateral L3-L4 DR L5 medial branch blocks with local anesthetic Reports 80% pain relief with improvement in functional mobility for 6 hours after the procedure She states she was able to walk out of the hospital with no pain, able to get in and out of the car with no pain and when she got home she was able to do housework without return of her pain. She denies any untoward effects of the procedure She would like to proceed with radiofrequency ablation Prior: Patient presents the office today for follow-up status post bilateral L3-L4 L5 medial branch blocks with local anesthetic performed 05/01/2023 She reports 70% pain relief and improvement in functional mobility for the entire day after the procedure Denies any untoward effects Pain today is rated as a 7/10 Prior: Torri is a very pleasant 52-year-old female who presents to the office today for evaluation management of her bilateral lower back pain. Patient reports that she has been suffering with this pain for approximately 2 years pain. She has tried Tylenol, nonsteroidal anti-inflammatory medication, ice, heat, home exercise program all without relief of her pain. She takes prescribed gabapentin which also is not improved her pain and only makes her sleepy. Pain is constant throughout the day, today is rated as an 8/10. Patient was referred to our office for consideration of steroid injections for bilateral sacroiliitis. Patient reports pain is worse with movement, does not radiate down a either extremity. Patient denies red flag symptoms including new loss of bowel, bladder or saddle anesthesia. In terms of muscle damage condition is described as aching, shooting and throbb ing. Pain is negatively impacting her general activity, mood, normal work, recreational activities, sleep and walking. [facility] Medical History Family history of colorectal cancer Arthrosis Anxiety, generalized Hypertension, essential Tobacco abuse Asthma Stroke Surgical History H/O: hysterectomy Family History Mother Heart disease Diabetes Colon cancer Father Heart disease Substance abuse Daughter Substance abuse Social History Housing: House Alcohol intake: never Patient Tobacco Use Status: Current everyday Tobacco user Tobacco use type: Cigarette Cigarette Packs Per Day: 1 Cigarettes Per Day: 10 e-Cigarette/Vaping Use: Never Used Second Hand Smoke Exposure: No Current occupational status: unemployed Cognitive needs: No Hearing needs: No Vision needs: Yes Review of Systems Const All systems reviewed & are unremarkable except as noted in HPI and below Physical Exam Vital Signs: Last Vital Signs Pulse 62 06/22/23 09:32 Resp 16 06/22/23 09:32 BP 179/107 H 06/22/23 09:32 Pulse Ox 100 06/22/23 09:32 Oxygen Delivery Method Room Air 06/22/23 09:32 BMI result Body Mass Index 22.8 General: awake, alert, oriented. Answers questions appropriately. Fully engaged in examination. Skin: warm, dry, intact HEENT: Normocephalic. Hearing intact. Cardiac: External chest normal in appearance. Respiratory: No cough, audible wheezing or stridor. Abdomen: without gross distension. MS: No obvious swelling or deformities. Able to transition from sit to stand unassisted. Ambulates with bilaterally normal heel strike and toe off Neurological: Oriented to person, place, time and situation. Thought process intact. No gait abnormalities appreciated. Psychiatric: Appropriate mood and affect. Good judgment and insight. Assessment & Plan Assessment & Plan (1) Lumbar facet arthropathy: Code(s): M47.816 - Spondylosis without myelopathy or radiculopathy, lumbar region Plan Torri presented to the office today for follow-up 3 days status post bilateral L3-L4 dorsal ramus L5 medial branch blocks with local anesthetic She reports 80% pain relief with improvement in functional mobility for 6 hours after the procedure She denies any untoward effects of the procedure Patient has exhausted conservative therapy including home exercise program, nonsteroidal anti-inflammatory medications, Tylenol, ice, heat, home exercise program and prescription gabapentin all without relief of her pain. Discussed options for treatment including peripheral nerve stimulation with Sprint versus radiofrequency ablation. Sprint pamphlet provided to patient She would like to proceed with radiofrequency ablation. Patient was advised that we will submit this to the insurance, there is a chance that they will require a 2nd repeat diagnostic. Will schedule for fluoroscopy guided bilateral L3, L4, DR L5 radiofrequency ablation with anesthesia All questions and concerns have been answered and patient agrees with the plan. Follow up after procedure, sooner if needed. Coding Level of Care Code Est Pt Level 3 (60803) Diagnoses Lumbar facet arthropathy M47.816
== END 2023-06-22 10:03 | disposition home or self-care (01) ==
PROVIDERS: PCP Internal Medicine; Visit Provider Registered Nurse Emergency
DX: M47.816 Spondylosis without myelopathy or radiculopathy, lumbar region (principal)
CPT/HCPCS: 99213

== ENCOUNTER → 2023-06-22 09:24 | Outpatient (BNVA) | payer OTHER, SELFPAY | PROVIDERS: PCP Internal Medicine; Visit Provider Registered Nurse Emergency | DX: M47.816 Spondylosis without myelopathy or radiculopathy, lumbar region (principal) | CPT/HCPCS: 99212 ==

== ENCOUNTER 2023-11-20 13:54 | Outpatient (AMB) | payer OTHER, SELFPAY ==
[2023-11-20 14:00] VITALS: BP 118/72; PULSE 95; O2SAT 99; BMI 22.7
--- NOTE | 2023-11-20 14:00 | MHC.PC.OV ---
Vital Signs 11/20/23 14:00 Height 5 ft 5 in Weight 136 lb 4 oz BMI 22.7 BP 118/72 Blood Pressure Location Rt brachial Position Sitting Pulse 95 Pulse Source Pulse Oximeter Pulse Oximetry (%) 99 Oxygen Delivery Method Room Air Intake Visit Reasons: Rsched from 10/29 Follow Up Allergies shellfish derived Allergy (Severe, Verified 11/20/23 14:01) Unknown Medication List - Last Reconciled 11/20/23 by Jesse Rudd MD cholecalciferol (vitamin D3) 25 mcg PO DAILY 90 days cholecalciferol (vitamin D3) 25 mcg PO DAILY 90 days escitalopram oxalate (Lexapro) 20 mg PO DAILY 90 days nifedipine ER 60 mg PO DAILY 90 days plecanatide (Trulance) 3 mg PO DAILY quetiapine 50 mg PO BEDTIME 90 days tramadol 50 mg PO BEDTIME PRN valsartan 80 mg PO DAILY 90 days Tobacco use date assessed: 11/20/23 Dental Screening Dental Screen Date: 11/20/23 Did you have a dental visit in the last 12 months?: No Did you have a dental problem in the last 6 months where you did not have access to dental care?: No Was dental information given to patient?: No HPI Rsched from 10/29 Follow Up HPI Details Patient is 52-year-old female came in today for follow-up appointment c/o of back spasms She also suffers chronic lower back pain have chronic sacroiliitis Currently seeing pain management and had nerve block as trial which did help her her insurance declined further procedures I Rx tramadol for her last visit, that did helped her, she is taking one at night i am adding muscle relaxer that she might take during the day , and a trial of small dose prednison today her symptoms are more towards left sided lumber radiculopathy she failed up to 600 mg ot gabapentine, it didnt control her pain She suffers from severe constipation due to IBS ref was placed to gastro Severe depression and difficulty sleeping at night: Patient is on Lexapro 20 mg for depression And Seroquel 50 mg at night which is helping her sleep as well as for depression Blood pressure is stable with nifedipine 60 mg and valsartan 80 mg Follow-up 3 months [facility] Medical History Family history of colorectal cancer Arthrosis Anxiety, generalized Hypertension, essential Tobacco abuse Asthma Stroke Surgical History H/O: hysterectomy Family History Mother Heart disease Diabetes Colon cancer Father Heart disease Substance abuse Daughter Substance abuse Social History Housing: House Alcohol intake: never Patient Tobacco Use Status: Current everyday Tobacco user Tobacco use type: Cigarette Cigarette Packs Per Day: 1 Cigarettes Per Day: 10 e-Cigarette/Vaping Use: Never Used Second Hand Smoke Exposure: No Current occupational status: unemployed Cognitive needs: No Hearing needs: No Vision needs: Yes Questionnaire Thrive Questionnaire Date Thrive assessed: 05/15/23 AUDIT C Alcohol Use Questionnaire (AUDIT-C) 1. How often do you have a drink containing alcohol?: Monthly or less 2. How many drinks containing alcohol do you have on a typical day when you are drinking?: 1 or 2 Total Score: 1 Score Reviewed/Action Taken: Yes BRANDEE-7 AMB Questionnaire BRANDEE-7 Date BRANDEE - 7 assessed: 05/15/23 Source: Developed by Drs. Aristeo Bryan, Yokasta Sandhu, Avni Lancaster and colleagues, with an educational marya from [employer]. Review of Systems Const Denies chills and Denies fever(s) ENT Denies epistaxis and Denies nasal discharge Card Denies chest pain Resp Denies chest congestion, Denies cough and Denies hemoptysis GI Denies diarrhea and Denies nausea Skin/Breast Denies rash Neuro Reports no additional complaints Psych Reports no additional complaints Endo Reports no additional complaints Physical exam (Primary Care) Vital Signs: Last Vital Signs Pulse 95 11/20/23 14:00 BP 118/72 11/20/23 14:00 Pulse Ox 99 11/20/23 14:00 Oxygen Delivery Method Room Air 11/20/23 14:00 BMI result Body Mass Index 22.7 Tobacco/Smoking Status: Tobacco use Status Tobacco use date assessed 11/20/23 11/20/23 14:02 Patient Tobacco Use Status Current everyday Tobacco 11/20/23 14:02 Tobacco use type Cigarette 11/20/23 14:02 e-Cigarette/Vaping Use Never Used 11/20/23 14:02 Thrive Assessment: Date of Thrive Assessment Date Thrive assessed 05/15/23 11/20/23 14:02 Const General: cooperative, comfortable and no acute distress Orientation/consciousness: patient oriented x3 HENMT Head: Yes normocephalic Eyes General: appearance normal, both eyes and all related structures Neck Neck: Yes supple Resp Effort & Inspection: normal respiratory effort, no cough and no stridor Cardio Rhythm: regular rhythm Heart sounds: S1 normal heart sound present and S2 normal heart sound present Skin General skin exam: turgor normal Neuro General: patient oriented x3, tone normal and moves all extremities Extrem Right lower extremity: no edema Left lower extremity: no edema Assessment and Plan Assessment & Plan (1) Lumbar radiculitis: Code(s): M54.16 - Radiculopathy, lumbar region (2) Hypertension, essential: Code(s): I10 - Essential (primary) hypertension (3) Major depression, recurrent: Code(s): F33.9 - Major depressive disorder, recurrent, unspecified Qualifiers: Active/Remission status: in partial remission Qualified Code(s): F33.41 - Major depressive disorder, recurrent, in partial remission (4) Osteoarthritis involving multiple joints on both sides of body: Code(s): M15.9 - Polyosteoarthritis, unspecified (5) Constipation by delayed colonic transit: Code(s): K59.01 - Slow transit constipation (6) Irritable bowel syndrome: Code(s): K58.9 - Irritable bowel syndrome without diarrhea Qualifiers: Irritable bowel syndrome type: with constipation Qualified Code(s): K58.1 - Irritable bowel syndrome with constipation (7) Anxiety, generalized: Code(s): F41.1 - Generalized anxiety disorder (8) Difficulty sleeping: Code(s): G47.9 - Sleep disorder, unspecified Plan Patient is 52-year-old female came in today for follow-up appointment c/o of back spasms She also suffers chronic lower back pain have chronic sacroiliitis Currently seeing pain management and had nerve block as trial which did help her her insurance declined further procedures I Rx tramadol for her last visit, that did helped her, she is taking one at night i am adding muscle relaxer that she might take during the day , and a trial of small dose prednison today her symptoms are more towards left sided lumber radiculopathy she failed up to 600 mg ot gabapentine, it didnt control her pain She suffers from severe constipation due to IBS ref was placed to gastro Severe depression and difficulty sleeping at night: Patient is on Lexapro 20 mg for depression And Seroquel 50 mg at night which is helping her sleep as well as for depression Blood pressure is stable with nifedipine 60 mg and valsartan 80 mg Follow-up 3 months Orders: Orders XR lumbar spine 2-3V Today M54.16 - Radiculopathy, lumbar region Medications: New cyclobenzaprine 5 mg PO TID PRN 60 tabs 0RF muscle spasm 30 days prednisone 10 mg PO DAILY 5 tabs 0RF 5 days Refilled quetiapine 50 mg PO BEDTIME 90 tabs 0RF 90 days valsartan 80 mg PO DAILY 90 tabs 0RF 90 days cholecalciferol (vitamin D3) 25 mcg PO DAILY 90 caps 1RF 90 days escitalopram oxalate (Lexapro) 20 mg PO DAILY 90 tabs 0RF 90 days F41.1 - Generalized anxiety disorder tramadol 50 mg PO BEDTIME PRN 90 tabs 0RF pain Coding Level of Care Code Est Pt Level 4 (73145) Complex EM visit Add On G2211 Diagnoses Lumbar radiculitis M54.16 Hypertension, essential I10 Recurrent major depressive disorder, in partial remission F33.41 Active/Remission status: in partial remission Osteoarthritis involving multiple joints on both sides of body M15.9 Constipation by delayed colonic transit K59.01 Irritable bowel syndrome with constipation K58.1 Irritable bowel syndrome type: with constipation Anxiety, generalized F41.1 Difficulty sleeping G47.9
== END 2023-11-20 14:18 | disposition home or self-care (01) ==
LOC: HO.HMGC 13:54
PROVIDERS: PCP Internal Medicine; Visit Provider Internal Medicine
DX: M54.16 Radiculopathy, lumbar region (principal); I10 Essential (primary) hypertension; F33.41 Major depressive disorder, recurrent, in partial remission; M15.9 Polyosteoarthritis, unspecified; K59.01 Slow transit constipation; K58.1 Irritable bowel syndrome with constipation; F41.1 Generalized anxiety disorder; G47.9 Sleep disorder, unspecified
CPT/HCPCS: 99214; G2211

== ENCOUNTER 2023-11-20 14:19 | Outpatient (REF) | payer OTHER, SELFPAY ==
--- NOTE | ~2023-11-20 | XR_ITS ---
EXAMINATION: XR LUMBOSACRAL SPINE CLINICAL INFORMATION: Lumbar radiculopathy. COMPARISON: None available. TECHNIQUE: Three views of the lumbosacral spine. FINDINGS: No acute fracture or subluxation. No loss of vertebral body height. Loss of intervertebral disc height with endplate osteophytes and bilateral facet arthropathy at L5-S1. The lumbar lordosis is maintained. No concerning lytic or blastic osseous lesion. XR/XR lumbar spine 2-3V IMPRESSION: Moderate degenerative disc disease and bilateral facet arthropathy at L5-S1. Electronically signed by: Neto García MD 12/06/2023 08:57 PM EDT
== END 2023-11-20 14:20 | disposition home or self-care (01) ==
LOC: HO.HMGCX 14:19
PROVIDERS: PCP Internal Medicine; Visit Provider Internal Medicine
DX: M54.16 Radiculopathy, lumbar region (principal)
CPT/HCPCS: 72100

== ENCOUNTER 2023-12-11 12:17 | Outpatient (AMB) | payer OTHER, SELFPAY ==
--- NOTE | 2023-12-11 12:17 | MHC.PC.OV ---
Vital Signs 12/11/23 12:18 Height 5 ft 5 in Weight 135 lb 2 oz BMI 22.5 BP 120/78 Blood Pressure Location Rt brachial Position Sitting Pulse 77 Pulse Source Pulse Oximeter Pulse Oximetry (%) 98 Intake Visit Reasons: 3 weeks f/up Tele Rn Required: No Accompanied by: Self / Same As Patient Allergies shellfish derived Allergy (Severe, Verified 12/11/23 12:18) Unknown Medication List - Last Reconciled 12/11/23 by Jesse Rudd MD cholecalciferol (vitamin D3) 25 mcg PO DAILY 90 days cholecalciferol (vitamin D3) 25 mcg PO DAILY 90 days cyclobenzaprine 5 mg PO TID PRN 30 days escitalopram oxalate (Lexapro) 20 mg PO DAILY 90 days nifedipine ER 60 mg PO DAILY 90 days plecanatide (Trulance) 3 mg PO DAILY quetiapine 50 mg PO BEDTIME 90 days tramadol 50 mg PO BEDTIME PRN valsartan 80 mg PO DAILY 90 days Tobacco use date assessed: 11/20/23 Dental Screening Dental Screen Date: 11/20/23 HPI 3 weeks f/up HPI Details Patient continued to have lower back pain Her x-ray shows moderate degenerative disc disease with arthropathy She is going to pain management [facility] Portal medication through this office, she tried tramadol which did not help her , muscle relaxer also makes her tired but does not help with the back pain I have sent Percocet patient is to take 1 at night so she can sleep Side-effect of oxycodone reviewed Patient already have constipation, I have sent Senokot S tablets to be taken 2 at night She also suffers from severe depression She is dealing with multiple domestic issues at home And is requesting referral to psychiatrist and therapist. Currently patient is on Seroquel at night which is helping somewhat but during the day she is having severe depression and anxiety Continue Lexapro 20 mg until seen by psychiatrist Blood pressure is stable continue valsartan 80 mg Follow-up 3 months PFS Medical History Family history of colorectal cancer Arthrosis Anxiety, generalized Hypertension, essential Tobacco abuse Asthma Stroke Surgical History H/O: hysterectomy Family History Mother Heart disease Diabetes Colon cancer Father Heart disease Substance abuse Daughter Substance abuse Social History Housing: House Alcohol intake: never Patient Tobacco Use Status: Current everyday Tobacco user Tobacco use type: Cigarette Cigarette Packs Per Day: 1 Cigarettes Per Day: 10 e-Cigarette/Vaping Use: Never Used Second Hand Smoke Exposure: No Current occupational status: unemployed Cognitive needs: No Hearing needs: No Vision needs: Yes Questionnaire PHQ-9 Over the last 2 weeks, how often have you been bothered by any of the following problems? 1. Little interest or pleasure in doing things: several days 2. Feeling down, depressed, or hopeless: several days 3. Trouble falling or staying asleep, or sleeping too much: several days 4. Feeling tired or having little energy: several days 5. Poor appetite or overeating: several days 6. Feeling bad about yourself - or that you are a failure or have let yourself or your family down: several days 7. Trouble concentrating on things, such as reading the newspaper or watching television: several days 8. Moving or speaking so slowly that other people could have noticed. Or the opposite - being so fidgety or restless that you have been moving around a lot more than usual: several days 9. Thoughts that you would be better off or of hurting yourself in some way: not at all Total score: 8 Depression Screening Interpretation: Negative Depression Screening Done: Yes 86970 - PHQ-9 Billing: Yes Source: Developed by Drs. Aristeo Bryan, Yokasta Sandhu, Avni Lancaster and colleagues, with an educational marya from [employer]. Thrive Questionnaire Date Thrive assessed: 05/15/23 I am a: Patient What is your living situation today?: I choose not to answer this question Within the past 12 months, did the food you bought not last and you didn't have the money to get more?: Sometimes True Within the past 12 months, did you worry whether your food would run out before you got money to buy more?: Sometimes True Do you have trouble paying for medicines?: Yes Do you have trouble getting transportation to medical appointments?: Yes Do you have trouble paying your heating and electricity bill?: Yes Do you have trouble taking care of your child, family member or friend?: No Do you have trouble with day-to-day activities such as bathing, preparing meals, shopping, managing finances, etc.?: Yes Are you interested in more education?: No Please select the resources that you would like help with: Housing/Longterm, Food, Paying for medicine, Transportation and Utilities Currently or been in a relationship where the following occur: No concerns reported THRIVE Score: 4 AUDIT C Alcohol Use Questionnaire (AUDIT-C) 1. How often do you have a drink containing alcohol?: Monthly or less 2. How many drinks containing alcohol do you have on a typical day when you are drinking?: 1 or 2 3. How often do you have six or more drinks on one occasion?: Never Total Score: 1 BRANDEE-7 AMB Questionnaire BRANDEE-7 Date BRANDEE - 7 assessed: 05/15/23 Feeling nervous, anxious, or on edge: 1 = Several days Not being able to stop or control worryin = Several days Worrying too much about different things: 1 = Several days Trouble relaxin = Several days Being so restless that it is hard to sit still: 1 = Several days Becoming easily annoyed or irritable: 1 = Several days Feeling afraid as if something awful might happen: 0 = Not at all Total BRANDEE-7 score (0-4 normal; 5-9 mild; 10-14 moderate; 15-21 severe): 6 Source: Developed by Drs. Aristeo Bryan, Yokasta Sandhu, Avni Lancaster and colleagues, with an educational marya from [employer]. Review of Systems Const Denies chills and Denies fever(s) ENT Denies epistaxis and Denies nasal discharge Card Denies chest pain Resp Denies chest congestion, Denies cough and Denies hemoptysis GI Denies diarrhea and Denies nausea Skin/Breast Denies rash Neuro Reports no additional complaints Psych Reports no additional complaints Endo Reports no additional complaints Physical exam (Primary Care) Vital Signs: Last Vital Signs Pulse 77 12/11/23 12:18 BP 120/78 12/11/23 12:18 Pulse Ox 98 12/11/23 12:18 BMI result Body Mass Index 22.5 Tobacco/Smoking Status: Tobacco use Status Tobacco use date assessed 11/20/23 12/11/23 12:20 Patient Tobacco Use Status Current everyday Tobacco 12/11/23 12:20 Tobacco use type Cigarette 12/11/23 12:20 e-Cigarette/Vaping Use Never Used 12/11/23 12:20 PHQ-9: PHQ-9 Score PHQ-9: Total score 8 12/11/23 12:20 Depression Screening Interpretation: Negative Thrive Assessment: Date of Thrive Assessment Date Thrive assessed 05/15/23 12/11/23 12:20 Currently or been in a relationship where the following occur: No concerns reported Const General: cooperative, comfortable and no acute distress Orientation/consciousness: patient oriented x3 HENMT Head: Yes normocephalic Eyes General: appearance normal, both eyes and all related structures Neck Neck: Yes supple Resp Effort & Inspection: normal respiratory effort, no cough and no stridor Cardio Rhythm: regular rhythm Heart sounds: S1 normal heart sound present and S2 normal heart sound present Skin General skin exam: turgor normal Neuro General: patient oriented x3, tone normal and moves all extremities Extrem Right lower extremity: no edema Left lower extremity: no edema Assessment and Plan Assessment & Plan (1) Major depression, recurrent: Code(s): F33.9 - Major depressive disorder, recurrent, unspecified Qualifiers: Active/Remission status: in partial remission Qualified Code(s): F33.41 - Major depressive disorder, recurrent, in partial remission (2) Constipation by delayed colonic transit: Code(s): K59.01 - Slow transit constipation (3) Lumbar radiculitis: Code(s): M54.16 - Radiculopathy, lumbar region (4) Hypertension, essential: Code(s): I10 - Essential (primary) hypertension (5) Osteoarthritis involving multiple joints on both sides of body: Code(s): M15.9 - Polyosteoarthritis, unspecified (6) Anxiety, generalized: Code(s): F41.1 - Generalized anxiety disorder (7) Difficulty sleeping: Code(s): G47.9 - Sleep disorder, unspecified Plan Patient continued to have lower back pain Her x-ray shows moderate degenerative disc disease with arthropathy She is going to pain management [facility] medication through this office, she tried tramadol which did not help her , muscle relaxer also makes her tired but does not help with the back pain I have sent Percocet patient is to take 1 at night so she can sleep Side-effect of oxycodone reviewed Patient already have constipation, I have sent Senokot S tablets to be taken 2 at night She also suffers from severe depression She is dealing with multiple domestic issues at home And is requesting referral to psychiatrist and therapist. Currently patient is on Seroquel at night which is helping somewhat but during the day she is having severe depression and anxiety Continue Lexapro 20 mg until seen by psychiatrist Blood pressure is stable continue valsartan 80 mg Follow-up 3 months Orders: Referrals Psychiatry Referral F33.41 - Major depressive disorder, recurrent, in partial remission Medications: New sennosides-docusate sodium 8.6-50 mg (Senokot-S) 2 tab-caps (2 x 8.6-50 mg) PO BEDTIME 180 tabs 0RF constipation 90 days K59.01 - Slow transit constipation oxycodone-acetaminophen 5-325 mg Partial Fill upon patient request. 1 tab PO Q8H PRN 21 tabs 0RF pain 7 days Discontinued tramadol Discontinued Reason: Doctor's Order 50 mg PO BEDTIME PRN 90 tabs 0RF pain Coding Level of Care Code Est Pt Level 4 (62854) Complex EM visit Add On G2211 Diagnoses Recurrent major depressive disorder, in partial remission F33.41 Active/Remission status: in partial remission Constipation by delayed colonic transit K59.01 Lumbar radiculitis M54.16 Hypertension, essential I10 Osteoarthritis involving multiple joints on both sides of body M15.9 Anxiety, generalized F41.1 Difficulty sleeping G47.9
[2023-12-11 12:18] VITALS: BP 120/78; PULSE 77; O2SAT 98; BMI 22.5
== END 2023-12-11 12:42 | disposition home or self-care (01) ==
PROVIDERS: PCP Internal Medicine; Visit Provider Internal Medicine
DX: F33.41 Major depressive disorder, recurrent, in partial remission (principal); K59.01 Slow transit constipation; M54.16 Radiculopathy, lumbar region; I10 Essential (primary) hypertension; M15.9 Polyosteoarthritis, unspecified; F41.1 Generalized anxiety disorder; G47.9 Sleep disorder, unspecified

== ENCOUNTER → 2023-12-11 12:17 | Outpatient (BNVA) | payer OTHER, SELFPAY | PROVIDERS: PCP Internal Medicine; Visit Provider Internal Medicine | DX: F33.41 Major depressive disorder, recurrent, in partial remission (principal); K59.01 Slow transit constipation; M54.16 Radiculopathy, lumbar region; I10 Essential (primary) hypertension; M15.9 Polyosteoarthritis, unspecified; F41.1 Generalized anxiety disorder; G47.9 Sleep disorder, unspecified | CPT/HCPCS: 99212 ==

== ENCOUNTER → 2023-12-20 08:43 | Outpatient (BNVA) | payer OTHER, SELFPAY | PROVIDERS: PCP Internal Medicine; Visit Provider Internal Medicine ==

== ENCOUNTER 2024-03-18 11:26 | Outpatient (AMB) | payer OTHER, SELFPAY ==
[2024-03-18 11:35] VITALS: BP 118/76; PULSE 89; O2SAT 99; BMI 23.8
--- NOTE | 2024-03-18 11:35 | A.OFFPC_ITS ---
Vital Signs 03/18/24 11:35 Height 5 ft 5 in Weight 143 lb 4 oz BMI 23.8 BP 118/76 Blood Pressure Location Lt brachial Position Sitting Pulse 89 Pulse Source Pulse Oximeter Pulse Oximetry (%) 99 Oxygen Delivery Method Room Air Intake Visit Reasons: 3 month follow up Allergies shellfish derived Allergy (Severe, Verified 03/18/24 11:35) Unknown Medication List - Last Reconciled 03/18/24 by Jesse Rudd MD cholecalciferol (vitamin D3) 25 mcg PO DAILY 90 days cholecalciferol (vitamin D3) 25 mcg PO DAILY 90 days cyclobenzaprine 5 mg PO TID PRN 30 days escitalopram oxalate (Lexapro) 20 mg PO DAILY 90 days nifedipine ER 60 mg PO DAILY 90 days plecanatide (Trulance) 3 mg PO DAILY quetiapine 50 mg PO BEDTIME 90 days sennosides-docusate sodium 8.6-50 mg (Senokot-S) 2 tab-caps (2 x 8.6-50 mg) PO BEDTIME 90 days tramadol 50 mg PO BID PRN 30 days valsartan 80 mg PO DAILY 90 days Tobacco use date assessed: 03/18/24 Dental Screening Dental Screen Date: 03/18/24 Did you have a dental visit in the last 12 months?: No Did you have a dental problem in the last 6 months where you did not have access to dental care?: No Was dental information given to patient?: No HPI 3 month follow up HPI Details Regular follow-up appointment - The patient is a 53-year-old female pr esenting with chronic pain - Chronic pain primarily in the cervical and lumbar regions; cervical pain suspected to be due to bone spurs - Pain described as severe at night, int erfering with sleep; persistent for approximately three months - Previously evaluated by pain managemen t in June; planned nerve ablation delayed due to [facility] approval issues - Current medication includes Tramadol, which has been effective intermittently; experiences limitations in arm movement - Reports involvement with orthopedic sp ecialist in 2020; currently only seeing them for back concerns - Essential Hypertension - Well-controlled with nifedipine and Va lsartan - Recent blood pressure measurement: 118 /76 mmHg - Constipation secondary to medication - Ongoing issue, managed with Sennosides - Requires regular medication to mitigat e constipation due to Tramadol use - Family History and Social Context - Mother has diabetes mellitus and stage 3 chronic kidney disease - Patient's past history of childhood di abetes; concerned about her own glucose levels Depression stable patient is on Lexapro 20 mg Also taking Seroquel which it is in sleep as well at night 50 mg Vitamin-D deficiency continue supplement Pain management with muscle relaxer and tramadol Review of Systems - Gastrointestinal: Reports fullness sen sation in the stomach - Neurological: Reports burning sensatio n at the base of the neck - Musculoskeletal: Reports severe pain i n neck and lumbar region; limited arm movement - Psychiatric: Denies current psychiatri c symptoms; managed with Seroquel - General: No fever no chills - Ear nose throat: No sore throat no hearing difficulty no ear pain - Cardiovascular: No syncope, no chest pain, no palpitations - Endocrine: No polyuria polydipsia no heat intolerance - Genitourinary: No dysuria , no blood in urine Physical Exam General: No acute distress HEENT: No acute findings Neck: Pain at the base of the neck, possibly due to bone spurs Respiratory system: Able to talk in full sentences, no audible wheeze cardiovascular: S1-S2 regular in rate and rhythm Gastrointestinal: Constipation present, fullness in the middle of the stomach Extremities: No new findings ASSOCIATE PROFESSOR OF LIBRARY SCIENCE: Alert awake oriented x3 motor sensory intact Skin: Normal turgor Patient Instructions - Contact the pain management clinic to schedule and proceed with necessary treatments - Make an appointment with a gastroenter ologist for further evaluation of gastrointestinal symptoms - Ensure consistent intake of Sennosides every night to manage constipation - Maintain current therapy for hyperten laurel Refills provided - Maintain Vitamin D supplementation as previously directed Follow-up 3 months PFS Medical History Family history of colorectal cancer Arthrosis Anxiety, generalized Hypertension, essential Tobacco abuse Asthma Stroke Surgical History H/O: hysterectomy Family History Mother Heart disease Diabetes Colon cancer Father Heart disease Substance abuse Daughter Substance abuse Social History Housing: House Alcohol intake: never Patient Tobacco Use Status: Current everyday Tobacco user Tobacco use type: Cigarette Cigarette Packs Per Day: 1 Cigarettes Per Day: 10 e-Cigarette/Vaping Use: Never Used Second Hand Smoke Exposure: No Current occupational status: unemployed Cognitive needs: No Hearing needs: No Vision needs: Yes Questionnaire Thrive Questionnaire Date Thrive assessed: 03/18/24 I am a: Patient What is your living situation today?: I choose not to answer this question Within the past 12 months, did the food you bought not last and you didn't have the money to get more?: Sometimes True Within the past 12 months, did you worry whether your food would run out before you got money to buy more?: Sometimes True Do you have trouble paying for medicines?: Yes Do you have trouble getting transportation to medical appointments?: Yes Do you have trouble paying your heating and electricity bill?: Yes Do you have trouble taking care of your child, family member or friend?: No Do you have trouble with day-to-day activities such as bathing, preparing meals, shopping, managing finances, etc.?: Yes Are you currently unemployed and looking for a job?: No Are you interested in more education?: No Currently or been in a relationship where the following occur: No concerns reported THRIVE Score: 4 AUDIT C Alcohol Use Questionnaire (AUDIT-C) 1. How often do you have a drink containing alcohol?: Monthly or less 2. How many drinks containing alcohol do you have on a typical day when you are drinking?: 1 or 2 3. How often do you have six or more drinks on one occasion?: Never Total Score: 1 Score Reviewed/Action Taken: Yes BRANDEE-7 AMB Questionnaire BRANDEE-7 Date BRANDEE - 7 assessed: 05/15/23 Source: Developed by Drs. Aristeo Bryan, Yokasta Sandhu, Avni Lancaster and colleagues, with an educational marya from [employer]. Physical exam (Primary Care) Vital Signs: Last Vital Signs Pulse 89 03/18/24 11:35 BP 118/76 03/18/24 11:35 Pulse Ox 99 03/18/24 11:35 Oxygen Delivery Method Room Air 03/18/24 11:35 BMI result Body Mass Index 23.8 Tobacco/Smoking Status: Tobacco use Status Tobacco use date assessed 03/18/24 03/18/24 11:38 Patient Tobacco Use Status Current everyday Tobacco 03/18/24 11:38 Tobacco use type Cigarette 12/31/24 11:38 e-Cigarette/Vaping Use Never Used 03/18/24 11:38 Thrive Assessment: Date of Thrive Assessment Date Thrive assessed 03/18/24 03/18/24 11:38 Currently or been in a relationship where the following occur: No concerns reported Coding Level of Care Code Est Pt Level 4 (41590) Complex EM visit Add On G2211 Diagnoses Hypertension, essential I10 Anxiety, generalized F41.1 Moderate tramadol dependence F11.20 Arthrosis M19.90 Difficulty sleeping G47.9 Recurrent major depressive disorder, in partial remission F33.41 Active/Remission status: in partial remission Osteoarthritis involving multiple joints on both sides of body M15.9 Constipation by delayed colonic transit K59.01 Pain management R52 Assessment & Plan Assessment & Plan (1) Hypertension, essential: Code(s): I10 - Essential (primary) hypertension Category: Medical (2) Anxiety, generalized: Code(s): F41.1 - Generalized anxiety disorder Category: Medical (3) Moderate tramadol dependence: Code(s): F11.20 - Opioid dependence, uncomplicated Category: Medical (4) Arthrosis: Code(s): M19.90 - Unspecified osteoarthritis, unspecified site Category: Medical (5) Difficulty sleeping: Code(s): G47.9 - Sleep disorder, unspecified Category: Medical (6) Major depression, recurrent: Code(s): F33.9 - Major depressive disorder, recurrent, unspecified Category: Medical Qualifiers: Active/Remission status: in partial remission Qualified Code(s): F33.41 - Major depressive disorder, recurrent, in partial remission (7) Osteoarthritis involving multiple joints on both sides of body: Code(s): M15.9 - Polyosteoarthritis, unspecified Category: Medical (8) Constipation by delayed colonic transit: Code(s): K59.01 - Slow transit constipation Category: Medical (9) Pain management: Code(s): R52 - Pain, unspecified Category: Medical Plan Regular follow-up appointment - The patient is a 53-year-old female presenting with chronic pain - Chronic pain primarily in the cervical and lumbar regions; cervical pain suspected to be due to bone spurs - Pain described as severe at night, interfering with sleep; persistent for approximately three months - Previously evaluated by pain management in June; planned nerve ablation delayed due to [employer] approval issues - Current medication includes Tramadol, which has been effective intermittently; experiences limitations in arm movement - Reports involvement with forest resource specialist in 2020; currently only seeing them for back concerns - Essential Hypertension - Well-controlled with nifedipine and Valsartan - Recent blood pressure measurement: 118/76 mmHg - Constipation secondary to medication - Ongoing issue, managed with Sennosides - Requires regular medication to mitigate constipation due to Tramadol use - Family History and Social Context - Mother has diabetes mellitus and stage 3 chronic kidney disease - Patient's past history of childhood diabetes; concerned about her own glucose levels Depression stable patient is on Lexapro 20 mg Also taking Seroquel which it is in sleep as well at night 50 mg Vitamin-D deficiency continue supplement Pain management with muscle relaxer and tramadol Review of Systems - Gastrointestinal: Reports fullness sensation in the stomach - Neurological: Reports burning sensation at the base of the neck - Musculoskeletal: Reports severe pain in neck and lumbar region; limited arm movement - Psychiatric: Denies current psychiatric symptoms; managed with Seroquel - General: No fever no chills - Ear nose throat: No sore throat no hearing difficulty no ear pain - Cardiovascular: No syncope, no chest pain, no palpitations - Endocrine: No polyuria polydipsia no heat intolerance - Genitourinary: No dysuria , no blood in urine Physical Exam General: No acute distress HEENT: No acute findings Neck: Pain at the base of the neck, possibly due to bone spurs Respiratory system: Able to talk in full sentences, no audible wheeze cardiovascular: S1-S2 regular in rate and rhythm Gastrointestinal: Constipation present, fullness in the middle of the stomach Extremities: No new findings ASSOCIATE PROFESSOR OF LIBRARY SCIENCE: Alert awake oriented x3 motor sensory intact Skin: Normal turgor Patient Instructions - Contact the pain management clinic to schedule and proceed with necessary treatments - Make an appointment with a production engine repairer for further evaluation of gastrointestinal symptoms - Ensure consistent intake of Sennosides every night to manage constipation - Maintain current therapy for hypertension Refills provided - Maintain Vitamin D supplementation as previously directed Follow-up 3 months Medications: Changed From cyclobenzaprine 5 mg PO TID 30 days PRN 60 tabs 0RF muscle spasm To cyclobenzaprine 5 mg PO .qhs 90 days PRN 90 tabs 0RF muscle spasm Refilled escitalopram oxalate (Lexapro) 20 mg PO DAILY 90 days 90 tabs 0RF F41.1 - Generalized anxiety disorder
== END 2024-03-18 12:08 | disposition home or self-care (01) ==
PROVIDERS: PCP Internal Medicine; Visit Provider Internal Medicine
DX: I10 Essential (primary) hypertension (principal); F11.20 Opioid dependence, uncomplicated; F33.41 Major depressive disorder, recurrent, in partial remission; F41.1 Generalized anxiety disorder; M19.90 Unspecified osteoarthritis, unspecified site; G47.9 Sleep disorder, unspecified; M15.9 Polyosteoarthritis, unspecified; K59.01 Slow transit constipation; R52 Pain, unspecified

== ENCOUNTER → 2024-03-18 11:26 | Outpatient (BNVA) | payer OTHER, SELFPAY | PROVIDERS: PCP Internal Medicine; Visit Provider Internal Medicine | DX: I10 Essential (primary) hypertension (principal); F41.1 Generalized anxiety disorder; F11.20 Opioid dependence, uncomplicated; G47.9 Sleep disorder, unspecified; F33.41 Major depressive disorder, recurrent, in partial remission; M15.9 Polyosteoarthritis, unspecified; K59.01 Slow transit constipation; R52 Pain, unspecified | CPT/HCPCS: 99212 ==

== ENCOUNTER 2024-06-10 11:49 | Outpatient (AMB) | payer OTHER, SELFPAY ==
[2024-06-10 11:56] VITALS: BP 168/104; PULSE 74; O2SAT 98; BMI 23.8
--- NOTE | 2024-06-10 11:56 | MHC.PC.OV ---
Vital Signs 06/10/24 11:56 Height 5 ft 5 in Weight 143 lb 4 oz BMI 23.8 BP 168/104 H Blood Pressure Location Rt brachial Position Sitting Pulse 74 Pulse Source Pulse Oximeter Pulse Oximetry (%) 98 Oxygen Delivery Method Room Air Intake Visit Reasons: 3 months f/up Allergies shellfish derived Allergy (Severe, Verified 06/10/24 11:56) Unknown Medication List - Last Reconciled 06/10/24 by Jesse Rudd MD cholecalciferol (vitamin D3) 25 mcg PO DAILY 90 days cholecalciferol (vitamin D3) 25 mcg PO DAILY 90 days cyclobenzaprine 5 mg PO .qhs PRN 90 days escitalopram oxalate (Lexapro) 20 mg PO DAILY 90 days nifedipine ER 60 mg PO DAILY 90 days plecanatide (Trulance) 3 mg PO DAILY quetiapine 50 mg PO BEDTIME 90 days sennosides-docusate sodium 8.6-50 mg (Senokot-S) 2 tab-caps (2 x 8.6-50 mg) PO BEDTIME 90 days tramadol 50 mg PO BID PRN 10 days valsartan 80 mg PO DAILY 90 days Tobacco use date assessed: 06/10/24 Dental Screening Dental Screen Date: 06/10/24 Did you have a dental visit in the last 12 months?: No Did you have a dental problem in the last 6 months where you did not have access to dental care?: No Was dental information given to patient?: Patient declined HPI 3 months f/up HPI Details History - The patient is a 53-year-old female with a history of chronic lumbar radiculitis, muscle spasms, hypertension, constipation, presenting with concerns regarding the efficacy of her current mental health treatment for symptoms of insomnia and mood fluctuations, alongside a desire for a referral for further evaluation. - The patient experiences persistent insomnia, despite adherence to quetiapine and Lexapro. She notes continued difficulty in falling asleep. - History of mood fluctuations is reported, with self-described episodes of elevated mood, leading to concerns about potential Bipolar Disorder, though no formal diagnosis exists. Family history supports this concern. - She experiences significant stress and anxiety surrounding unresolved government assistance paperwork, further exacerbating her mental health symptoms. - The patient uses marijuana to manage pain from arthralgia, though she denies regular nicotine use. Problem List - Essential Hypertension - Depression - Bipolar Disorder (family history, self-reported mood fluctuations) - Insomnia - General Anxiety Disorder - lumbar radiculitis - muscle spasms Patient Instructions - Continue taking medications as prescribed, including Lexapro, nifedipine, valsartan, quetiapine, and cyclobenzaprine. - Contact welfare office to resolve paperwork issues or seek assistance if needed. - start taking two tablets of quetiapine at night for insomnia, as discussed during the visit. - Monitor mood and sleep patterns, and report significant changes or persistent issues. - Schedule a follow-up appointment in three months or sooner if symptoms worsen. Review of Systems - General: No fever no chills - Neurological: No headaches no dizziness - Ear nose throat: No sore throat no hearing difficulty no ear pain - Cardiovascular: No syncope, no chest pain, no palpitations - Gastrointestinal: No nausea vomiting or diarrhea - Endocrine: No polyuria polydipsia no heat intolerance - Genitourinary: No dysuria , no blood in urine Physical Exam - General: No acute distress - HEENT: No acute findings - Neck: Supple - Respiratory system: Able to talk in full sentences, no audible wheeze - cardiovascular: S1-S2 regular in rate and rhythm - Gastrointestinal: No pain - Extremities: No new findings - NETWORK SECURITY ADMINISTRATOR: Alert awake oriented x3 motor sensory intact - Skin: Normal turgor PFSH Medical History Family history of colorectal cancer Arthrosis Anxiety, generalized Hypertension, essential Tobacco abuse Asthma Stroke Surgical History H/O: hysterectomy Family History Mother Heart disease Diabetes Colon cancer Father Heart disease Substance abuse Daughter Substance abuse Social History Housing: House Alcohol intake: never Patient Tobacco Use Status: Current everyday Tobacco user Tobacco use type: Cigarette Cigarette Packs Per Day: 1 Cigarettes Per Day: 10 e-Cigarette/Vaping Use: Never Used Second Hand Smoke Exposure: No Current occupational status: unemployed Cognitive needs: No Hearing needs: No Vision needs: Yes Questionnaire PHQ-9 Over the last 2 weeks, how often have you been bothered by any of the following problems? 1. Little interest or pleasure in doing things: several days 2. Feeling down, depressed, or hopeless: several days 3. Trouble falling or staying asleep, or sleeping too much: several days 4. Feeling tired or having little energy: several days 5. Poor appetite or overeating: several days 6. Feeling bad about yourself - or that you are a failure or have let yourself or your family down: several days 7. Trouble concentrating on things, such as reading the newspaper or watching television: several days 8. Moving or speaking so slowly that other people could have noticed. Or the opposite - being so fidgety or restless that you have been moving around a lot more than usual: several days 9. Thoughts that you would be better off or of hurting yourself in some way: not at all Total score: 8 Depression Screening Interpretation: Positive Depression Screening Follow-up: Existing condition and In treatment Depression Screening Done: Yes 65159 - PHQ-9 Billing: Yes Source: Developed by Drs. Aristeo Bryan, Yokasta Sandhu, Avni Lancaster and colleagues, with an educational marya from [employer]. Thrive Questionnaire Date Thrive assessed: 06/10/24 I am a: Patient What is your living situation today?: I have a steady place to live Within the past 12 months, did the food you bought not last and you didn't have the money to get more?: Sometimes True Within the past 12 months, did you worry whether your food would run out before you got money to buy more?: Often true Do you have trouble paying for medicines?: Yes Do you have trouble getting transportation to medical appointments?: Yes Do you have trouble paying your heating and electricity bill?: Yes Do you have trouble taking care of your child, family member or friend?: No Do you have trouble with day-to-day activities such as bathing, preparing meals, shopping, managing finances, etc.?: Yes Are you currently unemployed and looking for a job?: No Are you interested in more education?: No Please select the resources that you would like help with: Food, Paying for medicine, Transportation and Utilities Currently or been in a relationship where the following occur: Controlled Emotionally THRIVE Score: 5 AUDIT C Alcohol Use Questionnaire (AUDIT-C) 1. How often do you have a drink containing alcohol?: Monthly or less 2. How many drinks containing alcohol do you have on a typical day when you are drinking?: 1 or 2 3. How often do you have six or more drinks on one occasion?: Never Total Score: 1 Score Reviewed/Action Taken: Yes BRANDEE-7 AMB Questionnaire BRANDEE-7 Date BRANDEE - 7 assessed: 06/10/24 Feeling nervous, anxious, or on edge: 2 = More than half the days Not being able to stop or control worryin = Nearly every day Worrying too much about different things: 3 = Nearly every day Trouble relaxin = Nearly every day Being so restless that it is hard to sit still: 3 = Nearly every day Becoming easily annoyed or irritable: 3 = Nearly every day Feeling afraid as if something awful might happen: 2 = More than half the days Total BRANDEE-7 score (0-4 normal; 5-9 mild; 10-14 moderate; 15-21 severe): 19 Source: Developed by Drs. Aristeo Bryan, Yokasta Sandhu, Avni Lancaster and colleagues, with an educational marya from [employer]. BRANDEE-7 Assessment Billing BRANDEE-7 Assessment Tool: BRANDEE-7 Assessment 45808 Physical exam (Primary Care) Vital Signs: Last Vital Signs Pulse 74 06/10/24 11:56 BP 168/104 H 06/10/24 11:56 Pulse Ox 98 06/10/24 11:56 Oxygen Delivery Method Room Air 06/10/24 11:56 BMI result Body Mass Index 23.8 Tobacco/Smoking Status: Tobacco use Status Tobacco use date assessed 06/10/24 06/10/24 11:56 Patient Tobacco Use Status Current everyday Tobacco 06/10/24 11:56 Tobacco use type Cigarette 06/10/24 11:56 e-Cigarette/Vaping Use Never Used 06/10/24 11:56 PHQ-9: PHQ-9 Score PHQ-9: Total score 8 06/10/24 12:21 Depression Screening Interpretation: Positive Depression Screening Follow-up: Existing condition and In treatment Thrive Assessment: Date of Thrive Assessment Date Thrive assessed 06/10/24 06/10/24 12:04 Currently or been in a relationship where the following occur: Controlled Emotionally Coding Level of Care Code Est Pt Level 5 (23033) Diagnoses Financial difficulties Z59.9 Hypertension, essential I10 Anxiety, generalized F41.1 Moderate tramadol dependence F11.20 Arthrosis M19.90 Difficulty sleeping G47.9 Recurrent major depressive disorder, in partial remission F33.41 Active/Remission status: in partial remission Osteoarthritis involving multiple joints on both sides of body M15.9 Constipation by delayed colonic transit K59.01 Pain management R52 Elevated blood pressure reading with diagnosis of hypertension I10 Additional Codes BRANDEE-7 Assessment Billing - BRANDEE-7 Assessment Tool: BRANDEE-7 Assessment 95181 ([id number]) PHQ-9 - 99447 - PHQ-9 Billing: Yes ([id number]) Time Spent (min) 40 Comment [id number], feeling paperwork, coordination of care Assessment & Plan Assessment & Plan (1) Financial difficulties: Code(s): Z59.9 - Problem related to housing and economic circumstances, unspecified Category: Social Hx (2) Hypertension, essential: Code(s): I10 - Essential (primary) hypertension Category: Medical (3) Anxiety, generalized: Code(s): F41.1 - Generalized anxiety disorder Category: Medical (4) Moderate tramadol dependence: Code(s): F11.20 - Opioid dependence, uncomplicated Category: Medical (5) Arthrosis: Code(s): M19.90 - Unspecified osteoarthritis, unspecified site Category: Medical (6) Difficulty sleeping: Code(s): G47.9 - Sleep disorder, unspecified Category: Medical (7) Major depression, recurrent: Code(s): F33.9 - Major depressive disorder, recurrent, unspecified Category: Medical Qualifiers: Active/Remission status: in partial remission Qualified Code(s): F33.41 - Major depressive disorder, recurrent, in partial remission (8) Osteoarthritis involving multiple joints on both sides of body: Code(s): M15.9 - Polyosteoarthritis, unspecified Category: Medical (9) Constipation by delayed colonic transit: Code(s): K59.01 - Slow transit constipation Category: Medical (10) Pain management: Code(s): R52 - Pain, unspecified Category: Medical (11) Elevated blood pressure reading with diagnosis of hypertension: Code(s): I10 - Essential (primary) hypertension Category: Medical Plan History - The patient is a 53-year-old female with a history of chronic lumbar radiculitis, muscle spasms, hypertension, constipation, presenting with concerns regarding the efficacy of her current mental health treatment for symptoms of insomnia and mood fluctuations, alongside a desire for a referral for further evaluation. - The patient experiences persistent insomnia, despite adherence to quetiapine and Lexapro. She notes continued difficulty in falling asleep. - History of mood fluctuations is reported, with self-described episodes of elevated mood, leading to concerns about potential Bipolar Disorder, though no formal diagnosis exists. Family history supports this concern. - She experiences significant stress and anxiety surrounding unresolved government assistance paperwork, further exacerbating her mental health symptoms. - The patient uses marijuana to manage pain from arthralgia, though she denies regular nicotine use. Financial assistance paperwork filled and handed to patient She will meet with our behavior health coordinator so we can set her up with a psychiatrist Problem List - Essential Hypertension - Depression - Bipolar Disorder (family history, self-reported mood fluctuations) - Insomnia - General Anxiety Disorder - lumbar radiculitis - muscle spasms Patient Instructions - Continue taking medications as prescribed, including Lexapro, nifedipine, valsartan, quetiapine, and cyclobenzaprine. - Contact welfare office to resolve paperwork issues or seek assistance if needed. - start taking two tablets of quetiapine at night for insomnia, as discussed during the visit. - Monitor mood and sleep patterns, and report significant changes or persistent issues. - Schedule a follow-up appointment in three months or sooner if symptoms worsen. Medications: Changed From tramadol 50 mg PO BID 10 days PRN 20 tabs 0RF pain To tramadol 50 mg PO BID PRN 60 tabs 2RF pain 30 days From quetiapine 50 mg PO BEDTIME 90 days 90 tabs 0RF To quetiapine 100 mg (2 x 50 mg) PO BEDTIME 180 tabs 0RF 90 days
== END 2024-06-10 12:33 | disposition home or self-care (01) ==
LOC: HO.HMCC 11:50
PROVIDERS: PCP Internal Medicine; Visit Provider Internal Medicine
DX: I10 Essential (primary) hypertension (principal); F11.20 Opioid dependence, uncomplicated; F33.41 Major depressive disorder, recurrent, in partial remission; Z59.9 Problem related to housing and economic circumstances, unspecified; F41.1 Generalized anxiety disorder; M19.90 Unspecified osteoarthritis, unspecified site; G47.9 Sleep disorder, unspecified; M15.9 Polyosteoarthritis, unspecified; K59.01 Slow transit constipation; R52 Pain, unspecified

== ENCOUNTER → 2024-06-10 11:49 | Outpatient (BNVA) | payer OTHER, SELFPAY | PROVIDERS: PCP Internal Medicine; Visit Provider Internal Medicine | DX: I10 Essential (primary) hypertension (principal); F41.1 Generalized anxiety disorder; F11.20 Opioid dependence, uncomplicated; M19.90 Unspecified osteoarthritis, unspecified site; G47.9 Sleep disorder, unspecified; F33.41 Major depressive disorder, recurrent, in partial remission; K59.01 Slow transit constipation; R52 Pain, unspecified; Z59.9 Problem related to housing and economic circumstances, unspecified | CPT/HCPCS: 96127; 99212 ==

== ENCOUNTER 2024-08-01 13:13 | Outpatient (AMB) | payer OTHER, SELFPAY ==
--- OUTSIDE RECORDS SUMMARY | 2024-08-01 13:16 | XMS_ITS | Clinical Summary ---
[facility] Address [address] [place] [address] Care Team Providers Care Collections Agent Name Role Phone Name, Joey MCGREGOR Primary Care Provider [phone] Surgical History Surgery Date Site/Laterality Comments TONSILLECTOMY PROCEDURE: HISTORICAL TONSILLECTOMY HYSTERECTOMY PROCEDURE: HISTORICAL HYSTERECTOMY; COMMENT: endometriosis, TAHBSO Family History Relation Name Status Comments Brother Alive asthma Daughter 1 Alive high cholestero l Daughter 2 Alive Father asthma/pneumoni a Mother Alive colon polyps Son 1 Alive Son 2 Alive Social History Tobacco Use Types Packs/Day Years Used Date Smoking Tobacco: Every Day Cigarettes Smokeless Tobacco: Never Alcohol Use Standard Drinks/Week Comments No 0 (1 standard drink = 0.6 oz pur e alcohol) Comments Unknown Sex and Gender Information Value Date Recorded Sex Assigned at Not on file Legal Sex Female 10:08 AM EST Gender Identity Not on file Sexual Orientation Not on file Obstetrics History Last Filed Vital Signs Vital Sign Reading Time Taken Comments Blood Pressure 126/78 06/08/2021 11:39 AM EDT Si tting L Arm Pulse 112 06/08/2021 11:39 AM EDT Temperature - - Respiratory Rate - - Oxygen Saturation - - Inhaled Oxygen Concentration - - Weight 69.4 kg (153 lb) 06/08/2021 11:39 AM EDT Height 165.1 cm (5' 5 ) 06/08/2021 11:39 AM EDT Body Mass Index 25.46 06/08/2021 11:39 AM EDT Plan of Treatment Health Maintenance Due Date Last Done Comments Breast Cancer Screening 1972 Hepatitis B Vaccines (1 of 3 - 19+ 3-dose series) 12/27/1991 Pneumococcal Vaccine: 50+ Years (1 of 2 - PCV) 12/27/1991 Pneumococcal Vaccine: Pediatrics (0 to 5 Years) and At-Risk Patients (6 to 64 Years) (1 of 2 - PCV) 12/27/1991 Cervical Cancer Screening: P ap Smear 1993 Cholesterol Screening (Lipid Panel) 02/14/2022 Colorectal Cancer Screening: Colonoscopy 02/14/2022 Depression Screening 02/14/2022 HIV Screening 02/14/2022 Hepatitis C Screening 02/14/2022 Social Influencers of Health Screening 02/14/2022 Hypertension/CHF/CAD Annual BMP Blood Test 02/22/2022 DTaP,Tdap,and Td Vaccines (2 - Td or Tdap) 09/03/2022 09/03/2012 Zoster Vaccines (1 of 2) 2022 COVID-19 Vaccine (1 - 2023-2 5 season) 2023 Influenza Vaccine (Season Ended) 2024 05/20/2013, 02/06/2012 HIB Vaccines Aged Out No longer eligi ble based on patient's age to complete this topic HPV Vaccines Aged Out No longer eligi ble based on patient's age to complete this topic Hepatitis A Vaccines Aged Out No long er eligible based on patient's age to complete this topic IPV Vaccines Aged Out No longer eligi ble based on patient's age to complete this topic MMR Vaccines Aged Out No longer eligi ble based on patient's age to complete this topic Meningococcal ACWY Vaccine Aged Out N o longer eligible based on patient's age to complete this topic Meningococcal B Vaccine Aged Out No l onger eligible based on patient's age to complete this topic RSV Immunization Patients Under 20 months Aged Out No longer eligible b ased on patient's age to complete this topic Varicella Vaccines Aged Out No longer eligible based on patient's age to complete this topic Care Teams Collections Agent Relationship Specialty Start Date End Date Name, MD Joey [address] [place], [place] PCP - General Internal Medicine 11/03/11
--- NOTE | 2024-08-01 13:20 | A.OFFVIS_ITS ---
Vital Signs 08/01/24 13:22 Height 5 ft 5 in Weight 145 lb BMI 24.1 BP 168/96 H Blood Pressure Location Rt brachial Position Sitting Pulse 92 Pulse Source Pulse Oximeter Pulse Oximetry (%) 100 Oxygen Delivery Method Room Air Intake Visit Reasons: CIC, 1 YR FUV. Intake Note: ESTABLISHED PATIENT for mgmt of IBS-C MICHELE 04/23/2023. N.S multiple visits previously. CC; C.O. increased frequency of loose stools, nausea based on the need to take more senna as of the last couple months. Pt comments that she has been taking senna in place of the trulance since she ran out and hasn't been to the office to request more. + FMHx of CRC (Mother). No hx of colonoscopy. Manager Mechanical Maintenance Required: No Accompanied by: Self / Same As Patient Allergies shellfish derived Allergy (Severe, Verified 08/01/24 13:26) Unknown HPI HPI CIC, 1 YR FUV.: Details: LAST VISIT Irritable bowel syndrome Constipation by delayed colonic transit Family history of colorectal cancer Plan Patient will take Trulance daily. Patient was encouraged to increase fluid intake and activity to promote better bowel motility. Patient will return in 2 months to discuss colonoscopy, sooner on as needed basis. Patient is agreeable to this plan and verbalizes understanding of instructions. She was given the opportunity to ask questions and all questions answered. ? Thank you for allowing me to participate in her care Medications New plecanatide (Trulance) 3 mg PO DAILY 30 tabs 3RF K59.09 Discontinued sennosides-docusate sodium 8.6-50 mg (Senokot-S) Discontinued Reason: Doctor's Order 2 tab-caps (2 x 8.6-50 mg) PO BEDTIME 90 days 180 tabs 0RF constipation K59.03, T40.2X5A TODAY'S VISIT Patient is here today for follow-up and to discuss going for colonoscopy. Patient reports that she has been doing well, however in the past few weeks she has been dealing with more frequent stools. Patient reports that she is taking Trulance and it was helping, however patient took additional senna. Last visit senna was discontinue. Patient states because she took few days in a row she was having increased loose stools and then felt like her stomach was upset. Abdominal bloating. Family history of CRC patient's mother was diagnosed with colorectal cancer. Currently patient is taking omeprazole daily. Patient reports that since she had frequent stooling and bloating she has been having significant acid reflux. Patient reports severe acid reflux burning going all the way into her throat. Symptoms usually after meals and at night time. Patient denies dyspepsia, dysphagia or odynophagia. Denies any nausea or vomiting. Denies any fever or chills. [facility] Medical History Family history of colorectal cancer Arthrosis Anxiety, generalized Hypertension, essential Tobacco abuse Asthma Stroke Surgical History H/O: hysterectomy Family History Mother Heart disease Diabetes Colon cancer Father Heart disease Substance abuse Daughter Substance abuse Social History Housing: House Alcohol intake: never Patient Tobacco Use Status: Current everyday Tobacco user Tobacco use type: Cigarette Cigarette Packs Per Day: 1 Cigarettes Per Day: 10 e-Cigarette/Vaping Use: Never Used Second Hand Smoke Exposure: No Current occupational status: unemployed Cognitive needs: No Hearing needs: No Vision needs: Yes Review of Systems Const Denies weight gain and Denies weight loss ENT Reports no additional complaints, Denies dysphagia and Denies odynophagia Card Reports no additional complaints Resp Reports no additional complaints GI Denies abdominal pain, Denies belching, Denies melena, Denies bloating, Denies change in bowel habits, Denies dysphagia, Denies excessive flatus, Denies dyspepsia, Denies heartburn, Denies diarrhea, Denies loose stools, Denies nausea, Denies odynophagia and Denies vomiting Musc Reports no additional complaints Neuro Reports no additional complaints Psych Reports no additional complaints Endo Reports no additional complaints Physical Exam Vital Signs: Last Vital Signs Pulse 92 08/01/24 13:22 BP 168/96 H 08/01/24 13:22 Pulse Ox 100 08/01/24 13:22 Oxygen Delivery Method Room Air 08/01/24 13:22 BMI result Body Mass Index 24.1 Const General: healthy appearing, no acute distress and well developed Nutritional Appearance: well nourished Orientation/consciousness: patient oriented x3 Resp Effort & Inspection: normal respiratory effort, able to speak in complete sentences, no tracheal deviation and symmetric chest movement Auscultation: clear to auscultation bilaterally Cardio Rate: regular rate GI Inspection: Yes normal to inspection and No distended Palpation (GI): Soft to palpation, not firm, nontender and No hepatosplenomegaly present Auscultation: normal bowel sounds General: Yes no CVA tenderness Back/Spine/Pelvis Back: no CVA tenderness Skin General skin exam: elasticity normal, turgor normal and dry skin Neuro General: patient oriented x3 Psych Appearance: grossly normal Mental Status: mental status grossly normal Assessment & Plan Assessment & Plan (1) Irritable bowel syndrome: Code(s): K58.9 - Irritable bowel syndrome, unspecified Category: Medical Qualifiers: Irritable bowel syndrome type: with constipation Qualified Code(s): K58.1 - Irritable bowel syndrome with constipation (2) Constipation by delayed colonic transit: Code(s): K59.01 - Slow transit constipation Category: Medical (3) Family history of colorectal cancer: Code(s): Z80.0 - Family history of malignant neoplasm of digestive organs Category: Medical (4) Screen for colon cancer: Code(s): Z12.11 - Encounter for screening for malignant neoplasm of colon Plan Patient will be started on omeprazole do her to her symptoms. We will add endoscopy to the procedure. Patient was encouraged to avoid dietary triggers and late night snacking. Staying upright for minimum 3 hours after meals discussed with patient. Patient will be scheduled for colonoscopy. Message sent to surgical schedulers. Patient denies any issues with anesthesia in the past. No history of sleep apnea. Not on any anticoagulation medication. Reports family history of CRC. What to expect before during and after procedure discussed with patient. Stressed the importance of good bowel prep and clear liquid diet day before procedure. Patient denies any cardiac or respiratory symptoms. Patient will continue taking Trulance. Increase fluid intake and activity to promote better bowel motility. She will be seen after the procedure, sooner on as needed basis. She is agreeable to this plan and verbalizes understanding of instructions. She was given the opportunity to ask questions and all questions answered. Thank you for allowing me to participate in her care Medications: New bisacodyl (Dulcolax (bisacodyl)) take 4 tabs at noon the day before your colonoscopy 20 mg (4 x 5 mg) PO ONCE 4 tabs 0RF constipation 1 day Z12.11 - Encounter for screening for malignant neoplasm of colon polyethylene glycol 3350 (Miralax) As directed by gastroenterology department at [facility] 238 grams PO ONCE 238 grams 0RF Z12.11 - Encounter for screening for malignant neoplasm of colon omeprazole 40 mg PO DAILY 90 caps 3RF K21.9 - Gastro-esophageal reflux disease without esophagitis Refilled plecanatide (Trulance) 3 mg PO DAILY 90 tabs 3RF K59.09 - Other constipation Coding Level of Care Code Est Pt Level 4 (99269) Complex EM visit Add On G2211 Diagnoses Irritable bowel syndrome with constipation K58.1 Irritable bowel syndrome type: with constipation Constipation by delayed colonic transit K59.01 Family history of colorectal cancer Z80.0 Screen for colon cancer Z12.11 Time Spent (min) 35 Comment 25 minutes spent with patient and additional 10 minutes spent reviewing her records
[2024-08-01 13:22] VITALS: BP 168/96; PULSE 92; O2SAT 100; BMI 24.1
== END 2024-08-01 14:09 | disposition home or self-care (01) ==
LOC: HO.HGI 13:14
PROVIDERS: PCP Internal Medicine; Visit Provider Nurse Practitioner Family
DX: Z01.818 Encounter for other preprocedural examination (principal); Z12.11 Encounter for screening for malignant neoplasm of colon; K58.1 Irritable bowel syndrome with constipation; Z80.0 Family history of malignant neoplasm of digestive organs
CPT/HCPCS: 99212; G2211

== ENCOUNTER → 2024-08-01 13:13 | Outpatient (BNVA) | payer OTHER, SELFPAY | PROVIDERS: PCP Internal Medicine; Visit Provider Nurse Practitioner Family | DX: Z12.11 Encounter for screening for malignant neoplasm of colon (principal); K58.1 Irritable bowel syndrome with constipation; K59.01 Slow transit constipation; Z80.0 Family history of malignant neoplasm of digestive organs | CPT/HCPCS: 99212 ==

== ENCOUNTER 2024-09-10 11:53 | Outpatient (AMB) | payer OTHER, SELFPAY ==
--- NOTE | 2024-09-10 11:56 | MHC.PC.OV ---
Vital Signs 09/10/24 11:57 Height 5 ft 5 in Weight 145 lb BMI 24.1 BP 102/64 Blood Pressure Location Rt brachial Position Sitting Respiration 15 Pulse 67 Pulse Source Pulse Oximeter Temp 98.2 F Temp Source Oral Pulse Oximetry (%) 99 Oxygen Delivery Method Room Air Intake Visit Reasons: 3m follow up-update pcp Allergies shellfish derived Allergy (Severe, Verified 09/10/24 12:01) Unknown Medication List - Last Reconciled 09/10/24 by Jesse Rudd MD bisacodyl (Dulcolax (bisacodyl)) 20 mg (4 x 5 mg) PO ONCE 1 day cholecalciferol (vitamin D3) 25 mcg PO DAILY 90 days cyclobenzaprine 5 mg PO .qhs PRN 90 days escitalopram oxalate (Lexapro) 20 mg PO DAILY 90 days nifedipine ER 60 mg PO DAILY 90 days omeprazole 40 mg PO DAILY plecanatide (Trulance) 3 mg PO DAILY polyethylene glycol 3350 (Miralax) 238 grams PO ONCE quetiapine 100 mg (2 x 50 mg) PO BEDTIME 90 days tramadol 50 mg PO BID PRN 30 days valsartan 80 mg PO DAILY 90 days Tobacco use date assessed: 09/10/24 Dental Screening Dental Screen Date: 09/10/24 Did you have a dental visit in the last 12 months?: No Did you have a dental problem in the last 6 months where you did not have access to dental care?: No Was dental information given to patient?: Patient declined HPI 3m follow up-update pcp HPI Details History - The patient is a 53-year-old female presenting with management of bipolar disorder, hypertension, and chronic pain, along with preventative care for colon cancer screening. - Bipolar disorder: The patient reports that quetiapine has not been effective in managing her mood symptoms and causes grogginess during the day. She is advised to reduce the dose of quetiapine to 50 mg for a week and then half a tablet for a week and then stop, and start a new medication Depakote 1 tablet at night for a week and then 1 in the morning 1 at night, to stabilize her mood. - Hypertension: The patient has a history of elevated blood pressure, but current readings are stable at 102 mmHg systolic. - Gastroesophageal reflux disease: The patient is taking omeprazole 40 mg for management. - Chronic pain: The patient experiences back and hip pain, which sometimes causes limping. She is established with a pain management clinic She is taking cyclobenzaprine and tramadol through PCP office - Smoking cessation: The patient smokes less than a pack per day and is attempting to reduce her smoking. - Preventative care: The patient is scheduled for a colonoscopy and endoscopy due to a family history of colorectal cancer. Problem List - Bipolar disorder - Hypertension - Gastroesophageal reflux disease - Chronic pain - Smoking cessation - Preventative care: Colon cancer screening Patient Instructions - Reduce quetiapine dosage as instructed and start the new mood stabilizer medication. - Schedule and attend the colonoscopy and endoscopy appointments. - Continue taking current medications as prescribed - Follow up with the pain management clinic - Attempt to reduce smoking and seek support if needed. Taper off Seroquel, start Depakote 1 tablet for a week and then b.i.d. Tramadol and cyclobenzaprine script sent Follow-up three-week on Depakote and three-month for regular follow-up Review of Systems - General: No fever no chills - Neurological: No headaches no dizziness - Ear nose throat: No sore throat no hearing difficulty no ear pain - Cardiovascular: No syncope, no chest pain, no palpitations - Gastrointestinal: No nausea vomiting or diarrhea - Endocrine: No polyuria polydipsia no heat intolerance - Genitourinary: No dysuria , no blood in urine Physical Exam General: No acute distress HEENT: No acute findings Neck: Supple Respiratory system: Able to talk in full sentences, no audible wheeze, lungs are good Cardiovascular: S1-S2 regular in rate and rhythm Gastrointestinal: No pain Extremities: No new findings ENGINE MAINTENANCE MECHANIC: Alert awake oriented x3 motor sensory intact Skin: Normal turgor [facility] Medical History Family history of colorectal cancer Arthrosis Anxiety, generalized Hypertension, essential Tobacco abuse Asthma Stroke Surgical History H/O: hysterectomy Family History Mother Heart disease Diabetes Colon cancer Father Heart disease Substance abuse Daughter Substance abuse Social History Housing: House Alcohol intake: never Patient Tobacco Use Status: Current everyday Tobacco user Tobacco use type: Cigarette Cigarette Packs Per Day: 1 Cigarettes Per Day: 10 e-Cigarette/Vaping Use: Never Used Second Hand Smoke Exposure: No Current occupational status: unemployed Cognitive needs: No Hearing needs: No Vision needs: Yes Questionnaire Thrive Questionnaire Date Thrive assessed: 06/10/24 I am a: Patient What is your living situation today?: I have a steady place to live Within the past 12 months, did the food you bought not last and you didn't have the money to get more?: Sometimes True Within the past 12 months, did you worry whether your food would run out before you got money to buy more?: Often true Do you have trouble paying for medicines?: Yes Do you have trouble getting transportation to medical appointments?: Yes Do you have trouble paying your heating and electricity bill?: Yes Do you have trouble taking care of your child, family member or friend?: No Do you have trouble with day-to-day activities such as bathing, preparing meals, shopping, managing finances, etc.?: Yes Are you currently unemployed and looking for a job?: No Are you interested in more education?: No Currently or been in a relationship where the following occur: Controlled Emotionally THRIVE Score: 5 BRANDEE-7 AMB Questionnaire BRANDEE-7 Date BRANDEE - 7 assessed: 06/10/24 Source: Developed by Drs. Aritseo Bryan, Yokasta Sandhu, Avni Lancaster and colleagues, with an educational marya from [employer]. Physical exam (Primary Care) Vital Signs: Last Vital Signs Temp 98.2 F 09/10/24 11:57 Pulse 67 09/10/24 11:57 Resp 15 09/10/24 11:57 BP 102/64 09/10/24 11:57 Pulse Ox 99 09/10/24 11:57 Oxygen Delivery Method Room Air 09/10/24 11:57 BMI result Body Mass Index 24.1 Tobacco/Smoking Status: Tobacco use Status Tobacco use date assessed 09/10/24 09/10/24 12:00 Patient Tobacco Use Status Current everyday Tobacco 09/10/24 12:00 Tobacco use type Cigarette 09/10/24 12:00 e-Cigarette/Vaping Use Never Used 09/10/24 12:00 Thrive Assessment: Date of Thrive Assessment Date Thrive assessed 06/10/24 09/10/24 12:00 Currently or been in a relationship where the following occur: Controlled Emotionally Coding Level of Care Code Est Pt Level 4 (79861) Complex EM visit Add On G2211 Diagnoses Bipolar disorder, in partial remission, most recent episode hypomanic F31.71 Active/Remission status: in partial remission Most recent bipolar episode type: hypomanic Hypertension, essential I10 Bilateral sacroiliitis M46.1 Difficulty sleeping G47.9 Tobacco abuse Z72.0 Back muscle spasm M62.830 Assessment & Plan Assessment & Plan (1) Bipolar disorder: Code(s): F31.9 - Bipolar disorder, unspecified Category: Medical Qualifiers: Active/Remission status: in partial remission Most recent bipolar episode type: hypomanic Qualified Code(s): F31.71 - Bipolar disorder, in partial remission, most recent episode hypomanic (2) Hypertension, essential: Code(s): I10 - Essential (primary) hypertension Category: Medical (3) Bilateral sacroiliitis: Code(s): M46.1 - Sacroiliitis, not elsewhere classified Category: Medical (4) Difficulty sleeping: Code(s): G47.9 - Sleep disorder, unspecified Category: Medical (5) Tobacco abuse: Comment: Smoking damages our blood vessels, causes scaring of lungs leading to COPD and shortness of breath. It can also cause coronary artery disease leading to heart attack, and can cause degenerative disc disease , it can also predispose our body to certain cancers. Try to decrease cigarette use by 1 to 2 cigarettes/ week. When you are ready to quit let your primary care Know, or you can buy the nicotine patches there [id number]. Code(s): Z72.0 - Tobacco use Category: Medical (6) Back muscle spasm: Code(s): M62.830 - Muscle spasm of back Category: Medical Plan History - The patient is a 53-year-old female presenting with management of bipolar disorder, hypertension, and chronic pain, along with preventative care for colon cancer screening. - Bipolar disorder: The patient reports that quetiapine has not been effective in managing her mood symptoms and causes grogginess during the day. She is advised to reduce the dose of quetiapine to 50 mg for a week and then half a tablet for a week and then stop, and start a new medication Depakote 1 tablet at night for a week and then 1 in the morning 1 at night, to stabilize her mood. - Hypertension: The patient has a history of elevated blood pressure, but current readings are stable at 102 mmHg systolic. - Gastroesophageal reflux disease: The patient is taking omeprazole 40 mg for management. - Chronic pain: The patient experiences back and hip pain, which sometimes causes limping. She is established with a pain management clinic She is taking cyclobenzaprine and tramadol through PCP office - Smoking cessation: The patient smokes less than a pack per day and is attempting to reduce her smoking. - Preventative care: The patient is scheduled for a colonoscopy and endoscopy due to a family history of colorectal cancer. Problem List - Bipolar disorder - Hypertension - Gastroesophageal reflux disease - Chronic pain - Smoking cessation - Preventative care: Colon cancer screening Patient Instructions - Reduce quetiapine dosage as instructed and start the new mood stabilizer medication. - Schedule and attend the colonoscopy and endoscopy appointments. - Continue taking current medications as prescribed - Follow up with the pain management clinic - Attempt to reduce smoking and seek support if needed. Taper off Seroquel, start Depakote 1 tablet for a week and then b.i.d. Tramadol and cyclobenzaprine script sent Follow-up three-week on Depakote and three-month for regular follow-up Orders: Orders Comprehensive Met. Panel Today F31.9 - Bipolar disorder, unspecified, G47.9 - Sleep disorder, unspecified, I10 - Essential (primary) hypertension, M46.1 - Sacroiliitis, not elsewhere classified, Z72.0 - Tobacco use Complete Blood Count Auto Diff Today F31.9 - Bipolar disorder, unspecified, G47.9 - Sleep disorder, unspecified, I10 - Essential (primary) hypertension, M46.1 - Sacroiliitis, not elsewhere classified, Z72.0 - Tobacco use Medications: New divalproex (Depakote) 125 mg PO BID 60 tabs 0RF mood stablizer 30 days Changed From quetiapine 100 mg (2 x 50 mg) PO BEDTIME 90 days 180 tabs 0RF To quetiapine take full tablet for a week , than half for a week then stop 10 tabs 0RF 10 days Refilled tramadol 50 mg PO BID PRN 60 tabs 2RF pain 30 days cyclobenzaprine 5 mg PO .qhs PRN 90 tabs 0RF muscle spasm 90 days
[2024-09-10 11:57] VITALS: BP 102/64; PULSE 67; RESP 15; TEMP 36.8; O2SAT 99; BMI 24.1
--- OUTSIDE RECORDS SUMMARY | 2024-09-10 14:07 | XMS_ITS | Clinical Summary ---
Author Organization [facility] it Address [address] [place] [address] Care Team Providers Care Assistant Branch Manager Name Role Phone Name, Joey MCGREGOR Primary Care Provider [phone] Surgical History Surgery Date Site/Laterality Comments TONSILLECTOMY [...] age to complete this topic Care Teams Assistant Branch Manager Relationship Specialty Start Date End Date Name, MD Joey 4 [place], [place] PCP - General Internal Medicine 11/03/11
== END 2024-09-10 12:12 | disposition home or self-care (01) ==
LOC: HO.HMCC 11:54
PROVIDERS: PCP Internal Medicine; Visit Provider Internal Medicine
DX: F31.71 Bipolar disorder, in partial remission, most recent episode hypomanic (principal); I10 Essential (primary) hypertension; M46.1 Sacroiliitis, not elsewhere classified; G47.9 Sleep disorder, unspecified; Z72.0 Tobacco use; M62.830 Muscle spasm of back

== ENCOUNTER 2024-09-10 11:53 | Outpatient (REF) | payer OTHER, SELFPAY ==
[2024-09-10 13:32] LABS: MANUAL DIFF FLAG NO
[2024-09-10 13:34] LABS: Basophils Absolute Auto 0.1 X10*3/uL (0.0-0.2); Basophils Percent Auto 1.2 % (0-2); Eosinophils Absolute Auto 0.2 X10*3/uL (0.0-0.4); Hematocrit 40.5 % (37.0-47.0); Hemoglobin 12.6 g/dl (12.0-16.0); Imm Gran Abs Auto 0.01 X10*3/uL (0.00-0.03); Imm Gran Pct Auto 0.1 % (0.0-0.4); Lymphocytes Absolute Auto 2.9 X10*3/uL (1.2-4.9); Lymphocytes Percent Auto 39.1 % (20-40); Mean Corpuscular HGB Conc 31.1 g/dl (31.0-35.0); Mean Corpuscular Hemoglobin 29.4 pg (27.0-33.0); Mean Corpuscular Volume 94.6 fL (80.0-98.0); Mean Platelet Volume 9.5 fL (9.4-12.3); Monocytes Absolute Auto 0.4 X10*3/uL (0.1-1.2); Monocytes Percent Auto 5.1 % (2-11); Neutrophils Absolute Auto 3.8 x10*3/uL (2.0-8.3); Neutrophils Percent Auto 51.5 % (45-73); Platelet Count 289 X10*3/uL (160-400); Red Blood Count 4.28 X10*6/uL (4.20-5.50); Red Cell Distribution Width 14.3 % (11.0-16.0); White Blood Count 7.4 X10*3/uL (4.8-10.8)
[2024-09-10 14:34] LABS: Alanine Aminotransferase 13 U/L (0-31); Albumin Level 3.9 g/dL (3.5-5.0); Alkaline Phosphatase 71 U/L (39-117); Anion Gap 12 (12-20); Aspartate Amino Transferase 21 U/L (5-31); Bilirubin Total 0.2 mg/dL (0.0-1.0); Blood Urea Nitrogen 17 mg/dL (9-16); Calcium 8.8 mg/dL (8.4-10.2); Carbon Dioxide 31 mmol/L (22-29); Chloride 104 mmol/L (96-108); Estimated Glomerular Filt Rate > 60; Glucose Random 73 mg/dL (60-115); Potassium 3.8 mmol/L (3.3-5.1); Sodium 143 mmol/L (135-145); Total Protein 6.7 g/dL (6.5-8.0)
== END 2024-09-10 11:54 | disposition home or self-care (01) ==
LOC: HO.HMGCLDS 11:53
PROVIDERS: PCP Internal Medicine; Visit Provider Internal Medicine
DX: F31.71 Bipolar disorder, in partial remission, most recent episode hypomanic (principal); I10 Essential (primary) hypertension; M46.1 Sacroiliitis, not elsewhere classified; G47.9 Sleep disorder, unspecified; M62.830 Muscle spasm of back; Z72.0 Tobacco use; Z79.891 Long term (current) use of opiate analgesic; Z79.899 Other long term (current) drug therapy
CPT/HCPCS: 36415; 80053; 85025; 99212

== ENCOUNTER 2024-09-17 08:50 | Day surgery (SDC) | payer OTHER, SELFPAY ==
--- OUTSIDE RECORDS SUMMARY | 2024-08-27 13:15 | XMS_ITS | Clinical Summary ---
Author Organization [facility] it Address [address] [place] [address] Care Team Providers Care Motor Mechanic Name Role Phone Name, Joey MCGREGOR Primary Care Provider [phone] Surgical History Surgery Date Site/Laterality Comments TONSILLECTOMY [...] age to complete this topic Care Teams Motor Mechanic Relationship Specialty Start Date End Date Name, MD Joey 4 [place], [place] PCP - General Internal Medicine 11/03/11
--- NOTE | 2024-09-16 09:28 | P.CONAN_ITS ---
Documented by User: Linda Nichole NP 09/16/24 09:28 HPI - Anesthesia Eval Consult details Narrative: 53yo F for Upper Endoscopy and Colonoscopy PMFSH Active Problems Active Problems: All Active Problems Back muscle spasm (Acute) Bipolar disorder (Acute) Elevated blood pressure reading with diagnosis of hypertension (Acute) Financial difficulties (Acute) Moderate tramadol dependence (Acute) Pain management (Acute) Lumbar radiculitis (Acute) Blurring of vision (Acute) Family history of colorectal cancer (Acute) Lumbar facet arthropathy (Acute) Irritable bowel syndrome (Acute) Constipation by delayed colonic transit (Acute) Osteoarthritis involving multiple joints on both sides of body (Acute) Tired (Acute) Wrist pain, left (Acute) Low TSH level (Acute) Weight loss (Acute) Dizziness (Acute) Major depression, recurrent (Acute) Encounter for routine gynecological examination (Acute) Encounter for general adult medical examination with abnormal findings (Acute) Sprain of right shoulder (Acute) Difficulty sleeping (Acute) Back pain (Acute) Neck pain (Acute) Ventricular hypertrophy (Acute) Pre-op evaluation (Acute) Wrist arthritis (Acute) Bilateral sacroiliitis (Acute) Pain of left clavicle (Acute) Arm pain, diffuse (Acute) Arthrosis (Acute) Anxiety, generalized (Acute) Establishing care with new doctor, encounter for (Acute) Hypertension, essential (Acute) Tobacco abuse (Acute) Past Medical History Medical History Family history of colorectal cancer Arthrosis Anxiety, generalized Hypertension, essential Tobacco abuse Asthma Stroke Family History Family History Mother Heart disease Diabetes Colon cancer Father Heart disease Substance abuse Daughter Substance abuse Surgical History Surgical History H/O: hysterectomy Social History Social History Housing: House Are you a primary health care legal assistant to a significant other at home: No Do you presently have visiting nurse or other home services: No Alcohol intake: never Patient Tobacco Use Status: Current everyday Tobacco user Tobacco use type: Cigarette Cigarette Packs Per Day: 1 Cigarettes Per Day: 12 e-Cigarette/Vaping Use: Never Used Second Hand Smoke Exposure: No Use of substances other than those prescribed or required for medical reasons: Yes Substance Use Frequency: Daily Have you been hit, kicked, punched, or otherwise hurt by someone within the past year? If so, by whom?: No Are you DNR?: No Advance Directives: No Advance Directives Information Provided: Yes Patient : No FDLMP: Hysterectomy Poor oral hygiene: Yes Current occupational status: unemployed Cognitive needs: No Hearing needs: No Vision needs: Yes Meds Allergies Allergy/AdvReac Type Severity Reaction Status Date / Time shellfish derived Allergy Severe Unknown Verified 09/17/24 09:15 Assessment and Plan Assessment Anesthesia Assessment: Chart Reviewed Documented by User: Jo Ann Nicole MD 09/17/24 09:31 PMFSH Active Problems Active Problems: All Active Problems Back muscle spasm (Acute) Bipolar disorder (Acute) Elevated blood pressure reading with diagnosis of hypertension (Acute) Financial difficulties (Acute) Moderate tramadol dependence (Acute) Pain management (Acute) Lumbar radiculitis (Acute) Blurring of vision (Acute) Family history of colorectal cancer (Acute) Lumbar facet arthropathy (Acute) Irritable bowel syndrome (Acute) Constipation by delayed colonic transit (Acute) Osteoarthritis involving multiple joints on both sides of body (Acute) Tired (Acute) Wrist pain, left (Acute) Low TSH level (Acute) Weight loss (Acute) Dizziness (Acute) Major depression, recurrent (Acute) Encounter for routine gynecological examination (Acute) Encounter for general adult medical examination with abnormal findings (Acute) Sprain of right shoulder (Acute) Difficulty sleeping (Acute)q Back pain (Acute) Neck pain (Acute) Ventricular hypertrophy (Acute) Pre-op evaluation (Acute) Wrist arthritis (Acute) Bilateral sacroiliitis (Acute) Pain of left clavicle (Acute) Arm pain, diffuse (Acute) Arthrosis (Acute) Anxiety, generalized (Acute) Establishing care with new doctor, encounter for (Acute) Hypertension, essential (Acute) Tobacco abuse (Acute) Past Medical History Medical History Family history of colorectal cancer Arthrosis Anxiety, generalized Hypertension, essential Tobacco abuse Asthma Stroke Family History Family History Mother Heart disease Diabetes Colon cancer Father Heart disease Substance abuse Daughter Substance abuse Surgical History Surgical History H/O: hysterectomy History of Problems with Anesthesia: No Social History Social History Housing: House Are you a primary health care legal assistant to a significant other at home: No Do you presently have visiting nurse or other home services: No Alcohol intake: never Patient Tobacco Use Status: Current everyday Tobacco user Tobacco use type: Cigarette Cigarette Packs Per Day: 1 Cigarettes Per Day: 12 e-Cigarette/Vaping Use: Never Used Second Hand Smoke Exposure: No Use of substances other than those prescribed or required for medical reasons: Yes Substance Use Frequency: Daily Have you been hit, kicked, punched, or otherwise hurt by someone within the past year? If so, by whom?: No Are you DNR?: No Advance Directives: No Advance Directives Information Provided: Yes Patient : No FDLMP: Hysterectomy Poor oral hygiene: Yes Current occupational status: unemployed Cognitive needs: No Hearing needs: No Vision needs: Yes Meds Allergies Allergy/AdvReac Type Severity Reaction Status Date / Time shellfish derived Allergy Severe Unknown Verified 09/17/24 09:15 Exam Airway Mallampati Class: II TM Dist: >3cm Neck ROM: Full Denture: Upper and Lower Loose/Missing/Broken Teeth: Yes, Upper and Lower Heart: RRR Lungs: CTA Assessment and Plan Assessment Anesthesia Assessment: Anesthesia Plan Discussed Final Anesthetic Review History of Problems with Anesthesia: No NPO: Yes ASA Class: II Final Preanesthetic Review: Meds/Allgs Chart Reviewed, Consent Obtained/Reviewed and Anes Risks/Benef Reviewed Patient Risk: Low Procedure Risk: Intermediate Anesthetic Plan Anesthetic Plan: MAC: Disposition: Standard PACU
[2024-09-17 09:17] VITALS: BP 137/95; PULSE 68; RESP 14; TEMP 37; O2SAT 98; BMI 24.5
[2024-09-17] MEDS: Lactated Ringers 1,000 ML 100 ML IVCONT (09:36)
--- NOTE | 2024-09-17 10:08 | MHC.SHP ---
Pre-Procedural Eval Section A - 24 Hr Update-Section A only Date of Service: 09/17/24 Section B - Complete if H&P > 30 days Chief Complaint: screening,gerd Relevant Family History (Specify if Yes): Yes Relevant Social History: Tobacco Use Present Medications: see Short Stay Collaborative assessment Medical History: Significant History (Family history of colorectal cancer Arthrosis Anxiety, generalized Hypertension, essential Tobacco abuse Asthma Stroke) History of Previous Operations: Relevant previous surgery/procedure and date(s) (H/O: hysterectomy) Allergies: Allergies Allergy/AdvReac Type Severity Reaction Status Date / Time shellfish derived Allergy Severe Unknown Verified 09/17/24 09:15 Review of Systems Sugical H&P ROS: Negative: Constitution, Cardiovascular, Respiratory, Neurological, Psychiatric, Hem-Onc, Allergic/Immunologic, Gastrointestinal, Genitourinary, Musculoskeletal, Integumentary, Endocrine and Eyes/Ears/Nose/Throat Exam Surgical H&P Exam: Normal: HEENT, Normal: Heart, Normal: Lungs, Normal: Extremities, Normal: Abdomen, Normal: Skin and Normal: Neurological Plan Diagnosis/Plan: Unchanged I have reviewed the history and physical and performed a pertinent physical examination on my patient. No changes have occurred unless specified. Time Spent With Patient Time: Total time managing care of this patient today ____ minutes.
--- NOTE | 2024-09-17 10:44 | P.OPN-COLO_ITS ---
Colonoscopy Operative Note Operative Note Date of Service: 09/17/24 Narrative: Operative Information Procedure Description: EGD, Colonoscopy Indication: GERD, screening, FH CRC Anesthesia: MAC FLEXIBLE TRANSORAL UPPER GASTROINTESTINAL ENDOSCOPY AND COLONOSCOPY PROCEDURE NOTE UPPER ENDOSCOPY Consent: Indications for the procedure and potential complications of bleeding, perforation, reaction to medications and missed diagnosis were discussed with the patient and informed consent was obtained. Instrument: Olympus GIF H 190 J mid size upper endoscope Monitoring: Vital signs and clinical assessment, continuous EKG monitoring, Pulse oximetry, Carbon Dioxide monitoring and blood pressure monitoring were done throughout the procedure. Procedure: The patient was placed in the left lateral decubitis position and pre-procedure medications were administered and a bite block was placed. The endoscope was inserted into the mouth and advanced under direct vision to the third part of duodenum. A careful inspection was made as the upper endoscope was withdrawn including a retroflexed examination of the proximal stomach; Findings and interventions are described below. Findings: Larynx:normal Esophagus: GE junction at 40 cm, diaphragm hiatus at 40 cm, normal mucosa -bx taken from GEJ, distal and proximal esophagus Stomach: mild gastritis. Biopsies were obtained. Grade 2 flap valve on retroflexed examination of the cardia. Duodenum: Normal bulb and descending duodenum, bx taken Intervention: Biopsies as noted above, COLONOSCOPY Instrument: Olympus variable stiffness pediatric scope 190L Colonoscopy Monitoring: Vital signs and clinical assessment, continuous EKG monitoring, Pulse oximetry, Carbon Dioxide monitoring and blood pressure monitoring were done throughout the procedure. Colon withdrawal time was 10 minutes. Procedure: The patient was placed in the left lateral decubitis position and pre-procedure medications were administered. After a digital rectal examination of the ano-rectum, the video colonoscope was inserted into the rectum and advanced through the colon to the cecum/TI. The colonoscope was slowly withdrawn in a retrograde panoramic fashion and the colon mucosa was carefully examined including a retroflexed view of the rectum. Findings and interventions are described below. Procedure Difficulty:moderate-pressure applied Findings: Terminal Ileum-not intubated due to looping Cecum:normal Ascending Colon: normal Transverse Colon -normal Descending Colon:normal Sigmoid Colon: mild diverticulosis, x 1 sessile polyp 5-6 mm removed with cold forceps Rectum: Retroflexion with small internal hemorrhoids, grade I Anorectum - normal Colon preparation: [place] Bowel Preparation Scale Right colon; 1-2 Transverse colon: 2 Left colon; 2 (0 = Unprepared colon segment with mucosa not seen due to solid stool that cannot be cleared. 1 = Portion of mucosa of the colon segment seen, but other areas of the colon segment not well seen due to staining, residual stool and/or opaque liquid. 2 = Minor amount of residual staining, small fragments of stool and/or opaque liquid, but mucosa of colon segment seen well. 3 = Entire mucosa of colon segment seen well with no residual staining, small fragments of stool or opaque liquid) Impression and Post Procedure Diagnosis: Endoscopy Findings: mild gastritis Colonoscopy Findings: diverticulosis colon polyp internal hemorrhoids Plan: Await Pathology results Repeat Colonoscopy in 5 years due to some areas of fair prep right side or earlier if clinically indicated High fiber diet leaflet avoid straining at stool, epsom salts and sitz bath, anusol supps or cream Above findings were reviewed with the patient and relevant handouts were provided if indicated.
[2024-09-17 10:48] VITALS: BP 95/64; PULSE 60; RESP 16; TEMP 36.4; O2SAT 99
[2024-09-17 11:03] VITALS: BP 121/88; PULSE 65; RESP 16; TEMP 36.9; O2SAT 96
== END 2024-09-17 11:33 | disposition home or self-care (01) ==
PROVIDERS: PCP Internal Medicine; Visit Provider Internal Medicine Gastroenterology
PROC: (CPT 45380; principal; 2024-09-17 10:10)
DX: Z12.11 Encounter for screening for malignant neoplasm of colon (principal); Z80.0 Family history of malignant neoplasm of digestive organs; K63.5 Polyp of colon; K57.30 Diverticulosis of large intestine without perforation or abscess without bleeding; K64.0 First degree hemorrhoids; K21.9 Gastro-esophageal reflux disease without esophagitis; K29.60 Other gastritis without bleeding; K44.9 Diaphragmatic hernia without obstruction or gangrene; I10 Essential (primary) hypertension; Z86.73 Personal history of transient ischemic attack (TIA), and cerebral infarction without residual deficits; J45.909 Unspecified asthma, uncomplicated; F41.1 Generalized anxiety disorder; M19.90 Unspecified osteoarthritis, unspecified site; K58.1 Irritable bowel syndrome with constipation; K59.01 Slow transit constipation; Z91.013 Allergy to seafood; F17.210 Nicotine dependence, cigarettes, uncomplicated; Z56.0 Unemployment, unspecified
CPT/HCPCS: 45380; 43239; 88305; 88313; 88342; J2003; J2704

== ENCOUNTER → 2024-09-17 08:50 | Outpatient (BNV) | payer OTHER, SELFPAY | PROVIDERS: PCP Internal Medicine; Visit Provider Internal Medicine Gastroenterology | DX: Z12.11 Encounter for screening for malignant neoplasm of colon (principal); Z80.0 Family history of malignant neoplasm of digestive organs; D12.5 Benign neoplasm of sigmoid colon; K57.30 Diverticulosis of large intestine without perforation or abscess without bleeding; K64.0 First degree hemorrhoids; K21.9 Gastro-esophageal reflux disease without esophagitis; K29.70 Gastritis, unspecified, without bleeding | CPT/HCPCS: 43239; 45380 ==

== ENCOUNTER 2024-12-16 08:02 | Outpatient (AMB) | payer OTHER, SELFPAY ==
--- NOTE | 2024-12-16 08:03 | MHC.PC.OV ---
Vital Signs 12/16/24 08:04 Height 5 ft 5 in Weight 149 lb BMI 24.8 BP 130/78 Blood Pressure Location Lt brachial Position Sitting Pulse 88 Pulse Source Pulse Oximeter Pulse Oximetry (%) 99 Oxygen Delivery Method Room Air Intake Visit Reasons: med refill Allergies shellfish derived Allergy (Severe, Verified 12/16/24 08:04) Unknown Medication List - Last Reconciled 12/16/24 by Jesse Rudd MD cholecalciferol (vitamin D3) 25 mcg PO DAILY 90 days cyclobenzaprine 5 mg PO .qhs PRN 90 days divalproex (Depakote) 125 mg PO BID 30 days escitalopram oxalate (Lexapro) 20 mg PO DAILY 90 days nifedipine ER 60 mg PO DAILY 90 days omeprazole 40 mg PO DAILY plecanatide (Trulance) 3 mg PO DAILY quetiapine take full tablet for a week , than half for a week then stop 10 days tramadol 50 mg PO BID PRN 30 days valsartan 80 mg PO DAILY 90 days Tobacco use date assessed: 09/10/24 Dental Screening Dental Screen Date: 09/10/24 HPI med refill HPI Details History The patient is a 53-year-old female presenting with back pain and medication management. Patient has a history of bipolar disorder hypertension DJD lumbar spine vitamin-D deficiency muscle spasms in the back Major depression and anxiety, GERD, insomnia, difficulty walking more than half a block due to back pain Back Pain: - Persistent pain experienced in the back. - The patient reports visiting a stage setting painter apprentice and has an upcoming visit on the . - History of attempted pain management through shots, which were not financially covered. By the insurance company - Prior imaging from November last year indicates mottled degenerative disc disease and bilateral facet arthropathy at L5 and S1. - Pain radiates to the left leg. No bowel or bladder issues Tramadol Dependence: - Relies on tramadol due to chronic pain for relief. Hypertension: - Stable on current therapy, no acute complaints mentioned. Bipolar Disorder: - Managed with Depakote, which the patient tolerates well and finds stabilizing. Depression and Anxiety: - stable with Lexapro Taking Seroquel to sleep at night 50 mg Colonoscopy Findings: - History of endoscopy and colonoscopy in the early months of the current year. - Findings include internal hemorrhoids and a polyp. - Family history of colorectal cancer. - Recommended follow-ups are on a yearly basis due to familial risk. And melanosis coli Medical History: - Bipolar Disorder - Essential Hypertension - Lumbar Radiculitis - Osteoarthritis, Multiple Joints - Major Depressive Disorder - Generalized Anxiety Disorder - Irritable Bowel Syndrome - Tramadol Dependence Medications: - Cyclobenzaprine 5 mg for muscle relaxation. - Depakote 125 mg, two times a day for bipolar disorder management. - Lexapro 20 mg for depression and anxiety. - Nifedipine 60 mg for hypertension. - Omeprazole for gastroesophageal reflux management. - Chulance for gastrointestinal symptoms. - Quetiapine, taken at night for insomnia related to mental health disorders. - Valsartan 80 mg for hypertension. - Vitamin D supplement for bone health. - Tramadol, taken at least twice daily for pain. Social History: - The patient has limitations in walking, approximated to half a block, due to pain. - Drives without difficulty, assisted by her son with transportation needs. - Lives with her son, who is involved in her care. - Receives assessments from a nursing program. - No reported issues with substance use or significant lifestyle factors affecting health. Family History: - Mother with a history of colorectal cancer (CRC). Problem List - Back Pain - Degenerative Disc Disease - Bilateral Facet Arthropathy, L5-S1 - Lumbar Radiculitis - Bipolar Disorder - Essential Hypertension - Major Depressive Disorder - Generalized Anxiety Disorder - Tramadol Dependence - Osteoarthritis, Multiple Joints - Irritable Bowel Syndrome - Internal Hemorrhoids - melanosis coli Diagnostic results - Labs: Stable complete blood count (CBC), normal hemoglobin and white cell count, normal metabolic profile, normal liver enzymes. - Tests and Diagnostics: Colonoscopy showed diverticulosis, polyp, internal hemorrhoids; biopsy showed gastric antral mucosa with focal minimal chronic inactive inflammation, negative for metaplasia; colon biopsy revealed melanosis coli. Nome of Care - Current care involves pain management, gastroenterology, and potential consultations with orthopedic specialists. Involvement with a home care nurse program. Patient Instructions - Continue current medications as prescribed. - Follow up with stage setting painter apprentice on the scheduled visit. - Discuss with the specialist regarding MRI or alternative diagnostics if necessary. - medications refills sent - returned within three-month window for medication refills Review of Systems General: No fever no chills neurological: No headaches no dizziness ear nose throat: No sore throat no hearing difficulty no ear pain cardiovascular: No syncope, no chest pain, no palpitations gastrointestinal: No nausea vomiting or diarrhea endocrine: No polyuria polydipsia no heat intolerance genitourinary: No dysuria skin: No new complaints Physical Exam general: No acute distress HEENT: No acute findings neck: Supple respiratory system: Able to talk in full sentences, no audible wheeze no stridor cardiovascular: S1-S2 RRR gastrointestinal: No pain extremities: No new findings LACE PINNER: Alert awake oriented x3 motor sensory intact skin: Normal turgor PFSH Medical History Family history of colorectal cancer Arthrosis Anxiety, generalized Hypertension, essential Tobacco abuse Asthma Stroke Surgical History H/O: hysterectomy Family History Mother Heart disease Diabetes Colon cancer Father Heart disease Substance abuse Daughter Substance abuse Social History Housing: House Are you a primary manager critical care unit to a significant other at home: No Do you presently have visiting nurse or other home services: No Alcohol intake: never Patient Tobacco Use Status: Current everyday Tobacco user Tobacco use type: Cigarette Cigarette Packs Per Day: 1 Cigarettes Per Day: 12 e-Cigarette/Vaping Use: Never Used Second Hand Smoke Exposure: No Current occupational status: unemployed Cognitive needs: No Hearing needs: No Vision needs: Yes Questionnaire Thrive Questionnaire Date Thrive assessed: 06/10/24 I am a: Patient What is your living situation today?: I have a steady place to live Within the past 12 months, did the food you bought not last and you didn't have the money to get more?: Sometimes True Within the past 12 months, did you worry whether your food would run out before you got money to buy more?: Often true Do you have trouble paying for medicines?: Yes Do you have trouble getting transportation to medical appointments?: Yes Do you have trouble paying your heating and electricity bill?: Yes Do you have trouble taking care of your child, family member or friend?: No Do you have trouble with day-to-day activities such as bathing, preparing meals, shopping, managing finances, etc.?: Yes Are you currently unemployed and looking for a job?: No Are you interested in more education?: No Currently or been in a relationship where the following occur: Controlled Emotionally THRIVE Score: 5 BRANDEE-7 AMB Questionnaire BRANDEE-7 Date BRANDEE - 7 assessed: 06/10/24 Source: Developed by Drs. Aristeo Bryan, Yokasta Sandhu, Avni Lancaster and colleagues, with an educational marya from [employer]. Physical exam (Primary Care) Vital Signs: Last Vital Signs Pulse 88 12/16/24 08:04 BP 130/78 12/16/24 08:04 Pulse Ox 99 12/16/24 08:04 Oxygen Delivery Method Room Air 12/16/24 08:04 BMI result Body Mass Index 24.8 Tobacco/Smoking Status: Tobacco use Status Tobacco use date assessed 09/10/24 12/16/24 08:06 Patient Tobacco Use Status Current everyday Tobacco 12/16/24 08:06 Tobacco use type Cigarette 12/16/24 08:06 e-Cigarette/Vaping Use Never Used 12/16/24 08:06 Thrive Assessment: Date of Thrive Assessment Date Thrive assessed 06/10/24 12/16/24 08:06 Currently or been in a relationship where the following occur: Controlled Emotionally Coding Level of Care Code Est Pt Level 5 (67391) Diagnoses Bipolar disorder, in partial remission, most recent episode hypomanic F31.71 Active/Remission status: in partial remission Most recent bipolar episode type: hypomanic Hypertension, essential I10 Difficulty sleeping G47.9 Back muscle spasm M62.830 Anxiety, generalized F41.1 Recurrent major depressive disorder, in partial remission F33.41 Active/Remission status: in partial remission Moderate tramadol dependence F11.20 Lumbar radiculitis M54.16 Lumbar facet arthropathy M47.816 Pain management R52 Time Spent (min) 40 Comment Reviewing Gastro notes/biopsy report/paperwork for handicap placard /cnrf-hs-ytrp/coordina Assessment & Plan Assessment & Plan (1) Bipolar disorder: Code(s): F31.9 - Bipolar disorder, unspecified Category: Medical Qualifiers: Active/Remission status: in partial remission Most recent bipolar episode type: hypomanic Qualified Code(s): F31.71 - Bipolar disorder, in partial remission, most recent episode hypomanic (2) Hypertension, essential: Code(s): I10 - Essential (primary) hypertension Category: Medical (3) Difficulty sleeping: Code(s): G47.9 - Sleep disorder, unspecified Category: Medical (4) Back muscle spasm: Code(s): M62.830 - Muscle spasm of back Category: Medical (5) Anxiety, generalized: Code(s): F41.1 - Generalized anxiety disorder Category: Medical (6) Major depression, recurrent: Code(s): F33.9 - Major depressive disorder, recurrent, unspecified Category: Medical Qualifiers: Active/Remission status: in partial remission Qualified Code(s): F33.41 - Major depressive disorder, recurrent, in partial remission (7) Moderate tramadol dependence: Code(s): F11.20 - Opioid dependence, uncomplicated Category: Medical (8) Lumbar radiculitis: Code(s): M54.16 - Radiculopathy, lumbar region Category: Medical (9) Lumbar facet arthropathy: Code(s): M47.816 - Spondylosis without myelopathy or radiculopathy, lumbar region Category: Medical (10) Pain management: Code(s): R52 - Pain, unspecified Category: Medical Plan History The patient is a 53-year-old female presenting with back pain and medication management. Patient has a history of bipolar disorder hypertension DJD lumbar spine vitamin-D deficiency muscle spasms in the back Major depression and anxiety, GERD, insomnia, difficulty walking more than half a block due to back pain Back Pain: - Persistent pain experienced in the back. - The patient reports visiting a stage setting painter apprentice and has an upcoming visit on the . - History of attempted pain management through shots, which were not financially covered. By the insurance company - Prior imaging from November last year indicates mottled degenerative disc disease and bilateral facet arthropathy at L5 and S1. - Pain radiates to the left leg. No bowel or bladder issues Tramadol Dependence: - Relies on tramadol due to chronic pain for relief. Hypertension: - Stable on current therapy, no acute complaints mentioned. Bipolar Disorder: - Managed with Depakote, which the patient tolerates well and finds stabilizing. Depression and Anxiety: - stable with Lexapro Taking Seroquel to sleep at night 50 mg Colonoscopy Findings: - History of endoscopy and colonoscopy in the early months of the current year. - Findings include internal hemorrhoids and a polyp. - Family history of colorectal cancer. - Recommended follow-ups are on a yearly basis due to familial risk. And melanosis coli Medical History: - Bipolar Disorder - Essential Hypertension - Lumbar Radiculitis - Osteoarthritis, Multiple Joints - Major Depressive Disorder - Generalized Anxiety Disorder - Irritable Bowel Syndrome - Tramadol Dependence Medications: - Cyclobenzaprine 5 mg for muscle relaxation. - Depakote 125 mg, two times a day for bipolar disorder management. - Lexapro 20 mg for depression and anxiety. - Nifedipine 60 mg for hypertension. - Omeprazole for gastroesophageal reflux management. - Chulance for gastrointestinal symptoms. - Quetiapine, taken at night for insomnia related to mental health disorders. - Valsartan 80 mg for hypertension. - Vitamin D supplement for bone health. - Tramadol, taken at least twice daily for pain. Social History: - The patient has limitations in walking, approximated to half a block, due to pain. - Drives without difficulty, assisted by her son with transportation needs. - Lives with her son, who is involved in her care. - Receives assessments from a nursing program. - No reported issues with substance use or significant lifestyle factors affecting health. Family History: - Mother with a history of colorectal cancer (CRC). Problem List - Back Pain - Degenerative Disc Disease - Bilateral Facet Arthropathy, L5-S1 - Lumbar Radiculitis - Bipolar Disorder - Essential Hypertension - Major Depressive Disorder - Generalized Anxiety Disorder - Tramadol Dependence - Osteoarthritis, Multiple Joints - Irritable Bowel Syndrome - Internal Hemorrhoids - melanosis coli Diagnostic results - Labs: Stable complete blood count (CBC), normal hemoglobin and white cell count, normal metabolic profile, normal liver enzymes. - Tests and Diagnostics: Colonoscopy showed diverticulosis, polyp, internal hemorrhoids; biopsy showed gastric antral mucosa with focal minimal chronic inactive inflammation, negative for metaplasia; colon biopsy revealed melanosis coli. Nome of Care - Current care involves pain management, gastroenterology, and potential consultations with orthopedic specialists. Involvement with a home care nurse program. Patient Instructions - Continue current medications as prescribed. - Follow up with stage setting painter apprentice on the scheduled visit. - Discuss with the specialist regarding MRI or alternative diagnostics if necessary. - medications refills sent - returned within three-month window for medication refills Daija jackson paperwork filled for the patient today Medications: Changed From divalproex (Depakote) 125 mg PO BID 30 days 60 tabs 0RF mood stablizer To divalproex (Depakote) 125 mg PO BID 180 tabs 0RF mood stablizer 90 days From quetiapine take full tablet for a week , than half for a week then stop 10 days 10 tabs 0RF To quetiapine 50 mg PO BEDTIME 90 tabs 0RF 90 days Refilled escitalopram oxalate (Lexapro) 20 mg PO DAILY 90 tabs 0RF 90 days F41.1 - Generalized anxiety disorder tramadol 50 mg PO BID PRN 60 tabs 2RF pain 30 days
[2024-12-16 08:04] VITALS: BP 130/78; PULSE 88; O2SAT 99; BMI 24.8
--- OUTSIDE RECORDS SUMMARY | 2024-12-16 08:14 | XMS_ITS | Clinical Summary ---
Author Organization [facility] it Address [address] [place] [address] Care Team Providers Care Custom Bike Builder Name Role Phone Name, Joey MCGREGOR Primary Care Provider [phone] Surgical History Surgery Date Site/Laterality Comments TONSILLECTOMY [...] Last Done Comments Breast Cancer Screening 1972 Colorectal Cancer Screening: Colonoscopy 1972 Hepatitis B Vaccines (1 of 3 - 19+ 3-dose series) 12/27/1991 Pneumococcal Vaccine: 50+ Years (1 of 2 - PCV) 12/27/1991 Cervical Cancer Screening: P ap Smear 1993 Cholesterol Screening (Lipid Panel) 02/14/2022 HIV Screening 02/14/2022 Hepatitis C Screening 02/14/2022 Social Influencers of Health Screening 02/14/2022 Hypertension/CHF/CAD Annual BMP Blood Test 02/22/2022 DTaP,Tdap,and Td Vaccines (2 - Td or Tdap) 09/03/2022 09/03/2012 Zoster Vaccines (1 of 2) 2022 Depression Screening 03/19/2024 COVID-19 Vaccine (1 - 2023-2 5 season) 2024 Influenza Vaccine (#1) 2024 4, 02/06/2012 RSV Immunization Adult Patients (1 - 1-dose 75+ series) 12/27/2047 HIB Vaccines Aged Out No longer eligi [...] age to complete this topic Care Teams Custom Bike Builder Relationship Specialty Start Date End Date Name, MD Joey [address] [place] [address] PCP - General Internal Medicine 11/03/11
== END 2024-12-16 08:25 | disposition home or self-care (01) ==
LOC: HO.HMCC 08:03
PROVIDERS: PCP Internal Medicine; Visit Provider Internal Medicine
DX: I10 Essential (primary) hypertension (principal); F31.71 Bipolar disorder, in partial remission, most recent episode hypomanic; F11.20 Opioid dependence, uncomplicated; G47.9 Sleep disorder, unspecified; M62.830 Muscle spasm of back; F41.1 Generalized anxiety disorder; F33.41 Major depressive disorder, recurrent, in partial remission; M54.16 Radiculopathy, lumbar region; M47.816 Spondylosis without myelopathy or radiculopathy, lumbar region; R52 Pain, unspecified

== ENCOUNTER → 2024-12-16 08:02 | Outpatient (BNVA) | payer OTHER, SELFPAY | PROVIDERS: PCP Internal Medicine; Visit Provider Internal Medicine | DX: I10 Essential (primary) hypertension (principal); F11.20 Opioid dependence, uncomplicated; G89.29 Other chronic pain; F31.71 Bipolar disorder, in partial remission, most recent episode hypomanic; M62.830 Muscle spasm of back; F41.1 Generalized anxiety disorder; M47.816 Spondylosis without myelopathy or radiculopathy, lumbar region | CPT/HCPCS: 99212 ==

== ENCOUNTER 2025-01-23 08:46 | Outpatient (AMB) | payer OTHER, SELFPAY ==
--- NOTE | 2025-01-23 08:58 | A.OFFVIS_ITS ---
Vital Signs 01/23/25 09:03 Height 5 ft 5 in Weight 152 lb BMI 25.3 BP 169/89 H Blood Pressure Location Rt brachial Position Sitting Respiration 16 Pulse 73 Pulse Source Pulse Oximeter Pulse Oximetry (%) 99 Oxygen Delivery Method Room Air Intake Visit Reasons: Back Pain Facilities Project Manager Required: No Accompanied by: Self / Same As Patient Allergies shellfish derived Allergy (Severe, Verified 01/23/25 09:04) Unknown HPI Comments Details: The patient is a 54-year-old female presenting with right shoulder pain and back pain. The right shoulder pain has persisted for eight to nine months, affecting her entire arm and limiting her ability to perform certain movements. The pain is aggravated by reaching behind her back or lifting her arm overhead, and she suspects it may be linked to arthritis. There is no history of specific injury to the shoulder. The patient also experiences back pain, previously underwent 2 diagnostic L3-L4 DR L5 medial branch blocks with greater than 80% pain relief. Plan was for radiofrequency ablation however this was not approved or scheduled. She would like to move forward with lumbar radiofrequency ablation at this time. - Onset: Right shoulder pain for eight to nine months - Quality: Pain affects the entire arm, limiting range of motion - Location: Right shoulder, entire arm - Exacerbating factors: Reaching behind back, lifting arm overhead - Relieving factors: None mentioned - Impact: Limits ability to perform certain movements - Affect: Pain impacts daily activities and psychological wellbeing - Analgesia: Previous relief from diagnostic medial branch blocks - Adverse Effects: None reported - Activities of Daily Living: Pain limits ability to perform certain movements - Aberrant Drug Related Behaviors: None reported PFSH Medical History Family history of colorectal cancer Arthrosis Anxiety, generalized Hypertension, essential Tobacco abuse Asthma Stroke Surgical History H/O: hysterectomy Family History Mother Heart disease Diabetes Colon cancer Father Heart disease Substance abuse Daughter Substance abuse Social History Housing: House Are you a primary primary care nurse practitioner to a significant other at home: No Do you presently have visiting nurse or other home services: No Alcohol intake: never Patient Tobacco Use Status: Current everyday Tobacco user Tobacco use type: Cigarette Cigarette Packs Per Day: 1 Cigarettes Per Day: 12 e-Cigarette/Vaping Use: Never Used Second Hand Smoke Exposure: No Current occupational status: unemployed Cognitive needs: No Hearing needs: No Vision needs: Yes Review of Systems Narrative - Musculoskeletal: Reports right shoulder pain affecting entire arm, denies specific injury - Neurological: Denies numbness or tingling Physical Exam Exam Exam: General: awake, alert, oriented. Answers questions appropriately. Fully engaged in examination. Skin: warm, dry, intact HEENT: Normocephalic. Hearing intact. Cardiac: External chest normal in appearance. Respiratory: No cough, audible wheezing or stridor. Abdomen: without gross distension. MS: No obvious swelling or deformities. Able to transition from sit to stand unassisted. Ambulates with bilaterally normal heel strike and toe off Right upper extremity: Decreased range of motion. Pain with behind the back reaching overhead reach. Tenderness over right biceps tendon. Neurological: Oriented to person, place, time and situation. Thought process intact. No gait abnormalities appreciated. Psychiatric: Appropriate mood and affect. Good judgment and insight. Vital Signs: Last Vital Signs Pulse 73 01/23/25 09:03 Resp 16 01/23/25 09:03 BP 169/89 H 01/23/25 09:03 Pulse Ox 99 01/23/25 09:03 Oxygen Delivery Method Room Air 01/23/25 09:03 BMI result Body Mass Index 25.3 Results Reviewed Results Reviewed: 11/20/2023 XR/XR lumbar spine 2-3V FINDINGS: No acute fracture or subluxation. No loss of vertebral body height. Loss of intervertebral disc height with endplate osteophytes and bilateral facet arthropathy at L5-S1. The lumbar lordosis is maintained. No concerning lytic or blastic osseous lesion. IMPRESSION: Moderate degenerative disc disease and bilateral facet arthropathy at L5-S1. Assessment & Plan Assessment & Plan (1) Lumbar facet arthropathy: Code(s): M47.816 - Spondylosis without myelopathy or radiculopathy, lumbar region Category: Medical (2) Right shoulder pain: Code(s): M25.511 - Pain in right shoulder Category: Medical (3) Biceps tendinitis on right: Code(s): M75.21 - Bicipital tendinitis, right shoulder Category: Medical Plan The management plan involves obtaining an x-ray of the right shoulder to evaluate the cause of pain. Physical therapy for the right arm will be started, with a follow-up scheduled post-therapy. Should the shoulder pain continue, a referral to Dr. Sahu for potential ultrasound-guided biceps tendon injection will be made. For the back pain, an x-ray of the lower back will be conducted to track any developments. Patient would like to proceed with radiofrequency ablation at this time. Previously found greater than 80% relief with improvement in function and mobility after bilateral diagnostic L3-L4 DR L5 medial branch blocks. She has exhausted conservative therapy including home exercise program, nonsteroidal anti-inflammatory medications, Tylenol, ice, heat, home exercise program and prescription gabapentin all without relief of her pain. Will schedule for fluoroscopy guided bilateral L3, L4, DR L5 radiofrequency ablation with anesthesia Patient was informed and verbally consented to the use of an ambient scribe for clinic note documentation during this visit. Orders: Orders XR lumbar spine 4V min Today M47.816 - Spondylosis without myelopathy or radiculopathy, lumbar region, M54.9 - Dorsalgia, unspecified PT Evaluation and Treatment Today M25.511 - Pain in right shoulder, M75.21 - Bicipital tendinitis, right shoulder XR shoulder RT min 2V Today M25.511 - Pain in right shoulder Patient Instructions: - Schedule and complete an x-ray of your right shoulder and lumbar spine. - Begin physical therapy for your right arm as directed. - Return for follow-up after completing physical therapy. - Schedule radiofrequency ablation (RFA) for back pain management. Coding Level of Care Code Est Pt Level 3 (97745) Complex EM visit Add On G2211 Diagnoses Lumbar facet arthropathy M47.816 Right shoulder pain M25.511 Biceps tendinitis on right M75.21
[2025-01-23 09:03] VITALS: BP 169/89; PULSE 73; RESP 16; O2SAT 99; BMI 25.3
== END 2025-01-23 10:13 | disposition home or self-care (01) ==
LOC: HO.PMC 08:46
PROVIDERS: PCP Internal Medicine; Visit Provider Registered Nurse Emergency
DX: M47.816 Spondylosis without myelopathy or radiculopathy, lumbar region (principal); M25.511 Pain in right shoulder; M75.21 Bicipital tendinitis, right shoulder
CPT/HCPCS: 99213

== ENCOUNTER → 2025-01-23 08:46 | Outpatient (BNVA) | payer OTHER, SELFPAY | PROVIDERS: PCP Internal Medicine; Visit Provider Registered Nurse Emergency | DX: M75.21 Bicipital tendinitis, right shoulder (principal); M25.511 Pain in right shoulder; M47.816 Spondylosis without myelopathy or radiculopathy, lumbar region | CPT/HCPCS: 99212 ==

== ENCOUNTER 2025-03-11 10:27 | Outpatient (REF) | payer OTHER, SELFPAY ==
[2025-03-11 14:48] LABS: MANUAL DIFF FLAG NO
[2025-03-11 15:13] LABS: Hematocrit 42.6 % (37.0-47.0); Hemoglobin 13.4 g/dl (12.0-16.0); Imm Gran Abs Auto 0.02 X10*3/uL (0.00-0.03); Imm Gran Pct Auto 0.2 % (0.0-0.4); Lymphocytes Absolute Auto 2.3 X10*3/uL (1.2-4.9); Mean Corpuscular HGB Conc 31.5 g/dl (31.0-35.0); Mean Corpuscular Hemoglobin 29.5 pg (27.0-33.0); Mean Corpuscular Volume 93.8 fL (80.0-98.0); NRBC Abs Auto 0.000 X10*3/uL (0.0-0.012); NRBC Pct Auto 0.0 /100WBC (0.0-0.2); Platelet Count 372 X10*3/uL (160-400); Red Blood Count 4.54 X10*6/uL (4.20-5.50); White Blood Count 8.7 X10*3/uL (4.8-10.8)
[2025-03-11 16:18] LABS: Alanine Aminotransferase 13 U/L (0-31); Albumin Level 4.2 g/dL (3.5-5.0); Alkaline Phosphatase 83 U/L (39-117); Anion Gap 13 (12-20); Aspartate Amino Transferase 21 U/L (5-31); Blood Urea Nitrogen 14 mg/dL (9-16); Calcium 9.2 mg/dL (8.4-10.2); Carbon Dioxide 26 mmol/L (22-29); Chloride 107 mmol/L (96-108); Estimated Glomerular Filt Rate > 60; Potassium 3.8 mmol/L (3.3-5.1); Sodium 142 mmol/L (135-145); Total Protein 7.5 g/dL (6.5-8.0)
[2025-03-13 17:49] LABS: Thyroglobulin Antibodies <1 IU/mL (< or = 1)
== END 2025-03-11 10:28 | disposition home or self-care (01) ==
LOC: HO.HMGCLDS 10:27
PROVIDERS: PCP Internal Medicine; Visit Provider Internal Medicine
DX: R79.89 Other specified abnormal findings of blood chemistry (principal); I10 Essential (primary) hypertension; F33.41 Major depressive disorder, recurrent, in partial remission; F41.1 Generalized anxiety disorder; F11.20 Opioid dependence, uncomplicated; M46.1 Sacroiliitis, not elsewhere classified; G47.9 Sleep disorder, unspecified; Z72.0 Tobacco use
CPT/HCPCS: 36415; 80053; 84443; 85025; 86800; 99212

== ENCOUNTER 2025-03-11 10:27 | Outpatient (AMB) | payer OTHER, SELFPAY ==
--- NOTE | 2025-03-11 10:30 | A.OFFPC_ITS ---
Vital Signs 03/11/25 10:31 Height 5 ft 5 in Weight 150 lb BMI 25.0 BP 140/76 H Blood Pressure Location Lt brachial Position Sitting Pulse 77 Pulse Source Pulse Oximeter Pulse Oximetry (%) 97 Oxygen Delivery Method Room Air Intake Visit Reasons: Follow up reschedule Allergies shellfish derived Allergy (Severe, Verified 03/11/25 10:31) Unknown Medication List - Last Reconciled 03/11/25 by Jesse Rudd MD cholecalciferol (vitamin D3) 25 mcg PO DAILY 90 days cyclobenzaprine 5 mg PO .qhs PRN 90 days divalproex (Depakote) 125 mg PO BID 90 days escitalopram oxalate (Lexapro) 20 mg PO DAILY 90 days nifedipine ER 60 mg PO DAILY 90 days omeprazole 40 mg PO DAILY plecanatide (Trulance) 3 mg PO DAILY quetiapine 50 mg PO BEDTIME 90 days tramadol 50 mg PO BID PRN 30 days valsartan 80 mg PO DAILY 90 days Tobacco use date assessed: 09/10/24 Dental Screening Dental Screen Date: 09/10/24 HPI HPI Comments History of Present Illness Details History of Present Illness The patient is a 54 year old female presenting for medication management and follow-up on chronic conditions. Hypertension: - The patient's blood pressure reading w as 140/76 mmHg during the visit, which is an improvement from previous readings of 160-170 mmHg. - She has a history of significantly lizet vated blood pressure, with a reading of 200 mmHg a few months ago. at home - She reports a pulsatile sensation in h er ear, particularly when sleeping, which she associates with high blood pressure. - The patient does not monitor her blood pressure at home but owns a blood pressure cuff. - Her current medications for hypertensi on include valsartan and nifedipine. Psychiatric Disorder, Bipolar - The patient recently started virtual t herapy and has her first appointment with a psychiatrist this upcoming Sunday. - The new psychiatrist is expected to ta ke over the management of her psychiatric medications. - She is currently taking divalproex, es citalopram, and quetiapine. - The patient reports anxiety, which she feels contributes to her difficulty with smoking cessation. Chronic Pain Syndrome: - She takes tramadol for joint and back pain. Tobacco Use Disorder: - The patient continues to smoke but has reduced her cigarette consumption by approximately six cigarettes from a full pack per day. - She finds it difficult to quit due to her anxiety but expresses a goal to stop smoking entirely. - She also notes her mother has commente d on her high caffeine intake. Vitamin D Deficiency: - The patient confirmed she is continuin g to take her vitamin D supplement. Medical History: - Hypertension, with past readings as hi gh as 200 mmHg. - Unspecified psychiatric disorder treat ed with multiple medications. - Chronic joint and back pain. - Vitamin D deficiency. Medications: - Divalproex (Depakote) for psychiatric condition. - Escitalopram for psychiatric condition . - Quetiapine for psychiatric condition. - Valsartan for hypertension. - Nifedipine for hypertension. - Tramadol for joint pain. - Vitamin D supplement. Social History: - Substance Use: The patient is a curren t smoker who has reduced her intake from a pack a day by about six cigarettes. - She also reports a high caffeine intak e. - Living Situation: She lives alone in formerly [facility] own house, which she feels is too lar ge and is considering selling. - Family and Support System: Her mother lives with her brother nearby. 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 - Her youngest child is 26 years old. - Psychosocial: The patient has recently initiated virtual therapy for her mental health. [facility] Medical History Family history of colorectal cancer Arthrosis Anxiety, generalized Hypertension, essential Tobacco abuse Asthma Stroke Surgical History H/O: hysterectomy Family History Mother Heart disease Diabetes Colon cancer Father Heart disease Substance abuse Daughter Substance abuse Social History Housing: House Are you a primary reservoir caretaker to a significant other at home: No Do you presently have visiting nurse or other home services: No Alcohol intake: never Patient Tobacco Use Status: Current everyday Tobacco user Tobacco use type: Cigarette Cigarette Packs Per Day: 1 Cigarettes Per Day: 12 e-Cigarette/Vaping Use: Never Used Second Hand Smoke Exposure: No Current occupational status: unemployed Cognitive needs: No Hearing needs: No Vision needs: Yes Questionnaire Thrive Questionnaire Date Thrive assessed: 06/10/24 I am a: Patient What is your living situation today?: I have a steady place to live Within the past 12 months, did the food you bought not last and you didn't have the money to get more?: Sometimes True Within the past 12 months, did you worry whether your food would run out before you got money to buy more?: Often true Do you have trouble paying for medicines?: Yes Do you have trouble getting transportation to medical appointments?: Yes Do you have trouble paying your heating and electricity bill?: Yes Do you have trouble taking care of your child, family member or friend?: No Do you have trouble with day-to-day activities such as bathing, preparing meals, shopping, managing finances, etc.?: Yes Are you currently unemployed and looking for a job?: No Are you interested in more education?: No Currently or been in a relationship where the following occur: Controlled Emotionally THRIVE Score: 5 BRANDEE-7 AMB Questionnaire BRANDEE-7 Date BRANDEE - 7 assessed: 06/10/24 Source: Developed by Drs. Aristeo Bryan, Yokasta Sandhu, Avni Lancaster and colleagues, with an educational marya from [employer]. Review of Systems Narrative Review of Systems - General: No fever no chills - Neurological: No headaches no dizziness - Ear nose throat: No sore throat no hearing difficulty no ear pain - Cardiovascular: No syncope, no chest pain, no palpitations - Gastrointestinal: No nausea vomiting or diarrhea - Endocrine: No polyuria polydipsia no heat intolerance - Genitourinary: No dysuria , no blood in urine Physical exam (Primary Care) Vital Signs: Last Vital Signs Pulse 77 03/11/25 10:31 BP 140/76 H 03/11/25 10:31 Pulse Ox 97 03/11/25 10:31 Oxygen Delivery Method Room Air 03/11/25 10:31 BMI result Body Mass Index 25.0 Tobacco/Smoking Status: Tobacco use Status Tobacco use date assessed 09/10/24 03/11/25 10:31 Patient Tobacco Use Status Current everyday Tobacco 03/11/25 10:31 Tobacco use type Cigarette 03/11/25 10:31 e-Cigarette/Vaping Use Never Used 03/11/25 10:31 Tobacco cessation counseling provided: Yes Relapse Prevention: discussed the importance of a supportive environment and discussed dietary, exercise and/or lifestyle changes CPT code: 90731 - 4-10 Minutes Thrive Assessment: Date of Thrive Assessment Date Thrive assessed 06/10/24 03/11/25 10:31 Currently or been in a relationship where the following occur: Controlled Emotionally Narrative Physical Exam General: No acute distress HEENT: No acute findings Neck: Supple Respiratory system: Able to talk in full sentences, no audible wheeze Cardiovascular: S1-S2 regular in rate and rhythm, blood pressure 140/76 Gastrointestinal: No pain Extremities: No new findings INTELLIGENCE SENIOR SERGEANT: Alert awake oriented x3 motor intact Skin: Normal turgor Coding Level of Care Code Est Pt Level 5 (07255) Diagnoses Bipolar disorder, in partial remission, most recent episode hypomanic F31.71 Active/Remission status: in partial remission Most recent bipolar episode type: hypomanic Hypertension, essential I10 Recurrent major depressive disorder, in partial remission F33.41 Active/Remission status: in partial remission Anxiety, generalized F41.1 Moderate tramadol dependence F11.20 Bilateral sacroiliitis M46.1 Difficulty sleeping G47.9 Tobacco abuse Z72.0 Low TSH level R79.89 Additional Codes Vital Signs *Quality* - CPT code: 92511 - 4-10 Minutes ([id number]) Time Spent (min) 40 Comment chart review/ lab review/ face to face/ coordination of care Assessment & Plan Assessment & Plan (1) Bipolar disorder: Code(s): F31.9 - Bipolar disorder, unspecified Category: Medical Qualifiers: Active/Remission status: in partial remission Most recent bipolar episode type: hypomanic Qualified Code(s): F31.71 - Bipolar disorder, in partial remission, most recent episode hypomanic (2) Hypertension, essential: Code(s): I10 - Essential (primary) hypertension Category: Medical (3) Major depression, recurrent: Code(s): F33.9 - Major depressive disorder, recurrent, unspecified Category: Medical Qualifiers: Active/Remission status: in partial remission Qualified Code(s): F33.41 - Major depressive disorder, recurrent, in partial remission (4) Anxiety, generalized: Code(s): F41.1 - Generalized anxiety disorder Category: Medical (5) Moderate tramadol dependence: Code(s): F11.20 - Opioid dependence, uncomplicated Category: Medical (6) Bilateral sacroiliitis: Code(s): M46.1 - Sacroiliitis, not elsewhere classified Category: Medical (7) Difficulty sleeping: Code(s): G47.9 - Sleep disorder, unspecified Category: Medical (8) Tobacco abuse: Comment: Smoking damages our blood vessels, causes scaring of lungs leading to COPD and shortness of breath. It can also cause coronary artery disease leading to heart attack, and can cause degenerative disc disease , it can also predispose our body to certain cancers. Try to decrease cigarette use by 1 to 2 cigarettes/ week. When you are ready to quit let your primary care Know, or you can buy the nicotine patches there [id number]. Code(s): Z72.0 - Tobacco use Category: Medical (9) Low TSH level: Code(s): R79.89 - Other specified abnormal findings of blood chemistry Category: Medical Plan Problem List - Hypertension - Psychiatric disorder (unspecified) - Chronic pain syndrome - Tobacco use disorder - Vitamin D deficiency - Anxiety - Preventative care: Health maintenance with laboratory testing Plan - Hypertension Management: Increase nifedipine dose from 60 mg to 90 mg. - Patient was instructed to begin checking her blood pressure at home, especially when she experiences symptoms like pulsatile tinnitus, to establish a correlation. - Mental Health: The patient will continue with her current psychiatric medications. - She will continue with her new therapist and attend her first appointment with the psychiatrist, who will eventually assume management of her psychiatric medications. - Pain Management: A prescription for tramadol will be sent. - She will follow up with her statuary painter and proceed with the scheduled X-ray of her shoulder. - Laboratory Testing: An order will be placed for lab work to check kidney and liver function, a complete blood count (CBC), and thyroid function. - The patient was advised she can have the labs drawn today and that fasting is not required. - Smoking Cessation: The patient was encouraged to continue her efforts to cut down on smoking with the goal of eventual cessation. - Follow-up: The patient will return for a follow-up appointment in three months. Orders: Orders TSH reflex Free T4 Today R79.89 - Other specified abnormal findings of blood chemistry Thyroglobulin Antibodies Today R79.89 - Other specified abnormal findings of blood chemistry Complete Blood Count Auto Diff Today F11.20 - Opioid dependence, uncomplicated, F31.71 - Bipolar disorder, in partial remission, most recent episode hypomanic, F33.41 - Major depressive disorder, recurrent, in partial remission, F41.1 - Generalized anxiety disorder, G47.9 - Sleep disorder, unspecified, I10 - Essential (primary) hypertension, M46.1 - Sacroiliitis, not elsewhere classified, Z72.0 - Tobacco use Comprehensive Met. Panel Today F11.20 - Opioid dependence, uncomplicated, F31.71 - Bipolar disorder, in partial remission, most recent episode hypomanic, F33.41 - Major depressive disorder, recurrent, in partial remission, F41.1 - Generalized anxiety disorder, G47.9 - Sleep disorder, unspecified, I10 - Essential (primary) hypertension, M46.1 - Sacroiliitis, not elsewhere classified, Z72.0 - Tobacco use Medications: Changed From nifedipine ER 60 mg PO DAILY 90 days 90 tabs 0RF I10 - Essential (primary) hypertension To nifedipine ER 90 mg PO DAILY 90 tabs 0RF 90 days I10 - Essential (primary) hypertension Refilled tramadol 50 mg PO BID PRN 60 tabs 2RF pain 30 days
[2025-03-11 10:31] VITALS: BP 140/76; PULSE 77; O2SAT 97; BMI 25.0
--- OUTSIDE RECORDS SUMMARY | 2025-03-11 10:35 | XMS_ITS | Clinical Summary ---
Author Organization [facility] it Address [address] [place] [address] Care Team Providers Care Continuous Miner Name Role Phone Name, Joey MCGREGOR Primary Care Provider [phone] Surgical History Surgery Date Site/Laterality Comments TONSILLECTOMY [...] on file Sexual Orientation Not on file Last Filed Vital Signs Vital Sign Reading [...] Depression Screening 03/19/2024 COVID-19 Vaccine (1 - 2024-2 6 season) 2024 Influenza Vaccine (#1) 2024 4, [...] age to complete this topic Care Teams Continuous Miner Relationship Specialty Start Date End Date Name, MD Joey [address] [place] [address] PCP - General Internal Medicine 11/03/11
== END 2025-03-11 11:20 | disposition home or self-care (01) ==
LOC: HO.HMCC 10:28
PROVIDERS: PCP Internal Medicine; Visit Provider Internal Medicine
DX: F31.71 Bipolar disorder, in partial remission, most recent episode hypomanic (principal); I10 Essential (primary) hypertension; F33.41 Major depressive disorder, recurrent, in partial remission; F41.1 Generalized anxiety disorder; F11.20 Opioid dependence, uncomplicated; M46.1 Sacroiliitis, not elsewhere classified; G47.9 Sleep disorder, unspecified; Z72.0 Tobacco use; R79.89 Other specified abnormal findings of blood chemistry